=== PATIENT | male | born 1975 | race Caucasian/White ===

== ENCOUNTER 2017-03-19 19:50 | Inpatient (IN) | payer OTHER ==
[2017-03-19] MEDS ORDERED: AMIODARONE HCL 150 MG/3 ML VIAL IV ONE (20:00)
[2017-03-19] MEDS ORDERED: SODIUM BICARBONATE 50 MEQ/50 ML SYR IVP ONE ×2 (20:09→22:45)
[2017-03-19] MEDS ORDERED: EPINEPHrine 1 MG/10 ML SYR IVP ONE ×2 (20:09→22:39)
[2017-03-19] MEDS ORDERED: NS 1,000 ML IV ONE ×3 (20:09→22:23)
--- NOTE | 2017-03-19 20:09 | CPEKG ---
Heart Rate: 122 RR Interval: 492 P-R Interval: 148 QRSD Interval: 154 QT Interval: 348 QTC Interval: 496 P [place]: 77 QRS [place]: 58 T Wave [place]: 227 EKG Severity - ABNORMAL ECG - EKG Impression: SINUS TACHYCARDIA EKG Impression: IVCD, CONSIDER ATYPICAL LBBB Electronically Signed By: Hadley Solo 19-Mar-2017 22:16:23
[2017-03-19] MEDS ORDERED: PROPOFOL/EMULSION 1,000 MG/100 ML BOTTLE IV ONE (20:16)
[2017-03-19 20:17] LABS: ABSOLUTE NRBC COUNT 0.15 10^3/uL (0-0.01); ADD DIFF? YES; ADD MORPH? NO; ATYPICAL LYMPHOCYTE FLAG 10 (0-99); FRAGMENT RBC FLAG 0 (0-99); HEMOGLOBIN 16.7 g/dL (13.7-17.5); LEFT SHIFT FLG 20 (0-99); LIPEMIA HEMOLYSIS FLAG 80 (0-99); MEAN CELL HEMOGLOBIN 30.8 pg (27.9-34.1); MEAN CELL HEMOGLOBIN CONCENTR. 32.1 g/dL (32.4-36.7); MEAN CELL VOLUME 95.8 fL (81.5-99.8); MEAN PLATELET VOLUME 9.7 fL (8.7-11.7); NRBC-AUTO% 0.9 % (0.0-0.2); PLATELET CLUMPS FLAG 0 (0-99); PLATELET COUNT 109 10^3/uL (150-400); RED BLOOD CELL COUNT 5.43 10^6/uL (4.40-6.38); RED CELL DISTRIBUTION WIDTH 13.4 % (11.5-15.2)
[2017-03-19 20:21] LABS: ADD SCAN? NO
[2017-03-19 20:24] LABS: BASE EXCESS -17.1 mEq/L (-2.5-2.5); BICARBONATE 16 mEq/L (22-26); MEASURED OXYGEN SATURATION 85 % (92-95); PCO2 69 mmHg (34-38); PO2 79 mmHg (65-75); TCO2 19 mEq/L (23-27)
[2017-03-19 20:27] LABS: ANION GAP 16 mEq/L (8-16); CALCIUM 8.6 mg/dL (8.5-10.4); CARBON DIOXIDE 21 mEq/l (22-31); CHLORIDE 103 mEq/L (97-110); CREATININE 1.6 mg/dL (0.7-1.3); GLOMERULAR FILTRATION RATE 44; GLUCOSE 137 mg/dL (70-100); POTASSIUM 4.3 mEq/L (3.5-5.2); SODIUM 140 mEq/L (134-144)
[2017-03-19 20:27] LABS: O2 CONCENTRATIION 100 % (0-100); P/F RATIO 79 RATIO; PRESSURE SUPPORT 7
[2017-03-19 20:30] LABS: INR 1.29 (0.83-1.16); PROTIME(PATIENT) 16.1 SEC (12.0-15.0)
[2017-03-19] MEDS ORDERED: MIDAZOLAM 2 MG/2 ML VIAL IVP ONE (20:30)
[2017-03-19 20:31] LABS: APTT 41.6 SEC (23.0-38.0)
[2017-03-19 20:38] LABS: TROPONIN I 0.028 ng/mL (0-0.034)
[2017-03-19 20:40] LABS: ALBUMIN 4.1 g/dL (3.5-5.0); BILIRUBIN,TOTAL 1.1 mg/dL (0.1-1.4); BILIRUBIN-CONJUGATED 0.5 mg/dL (0.0-0.5); BILIRUBIN-UNCONJUGATED 0.6 mg/dL (0.0-1.1); TOTAL PROTEIN 7.6 g/dL (6.3-8.2)
[2017-03-19 20:41] LABS: CREATINE KINASE-MB FRACTION 4.63 ng/mL (0-3.19)
[2017-03-19] MEDS ORDERED: PROPOFOL/EMULSION 500 MG/50 ML BOTTLE IV ONE (20:42)
[2017-03-19] MEDS: PROPOFOL/EMULSION 50 ML IV ONE ×2 (20:49→21:29)
[2017-03-19 20:51] LABS: CK-MB INTERPRETATION NEGATIVE (NEGATIVE)
[2017-03-19] MEDS ORDERED: DOPamine/DEXTROSE/250 ML BAG IV ONE ×2 (20:57→22:39)
[2017-03-19 21:01] LABS: PLATELET ESTIMATE DECREASED (ADEQ)
[2017-03-19] MEDS ORDERED: AMIODARONE HCL 100 ML IV ONE (21:15)
[2017-03-19] MEDS ORDERED: AMIODARONE HCL 200 ML IV ONE ×2 (21:15→23:59)
[2017-03-19] MEDS ORDERED: PROPOFOL 200 MG/20 ML VIAL IVP ONE (21:40)
--- NOTE | 2017-03-19 21:43 | EDPHY ---
H & P Stated Complaint: at work, syncope, cardiac arrest Time Seen by Provider: 03/19/17 20:04 HPI/ROS: CHIEF COMPLAINT: Cardiac arrest HISTORY OF PRESENT ILLNESS: The patient is brought in emergently by paramedics after a cardiac arrest. The patient reportedly collapsed at work. CPR was initiated. The patient was noted to be in VFib. He reportedly was shocked twice into a PEA rhythm. The patient did receive epinephrine and CPR. The patient was only received bag-valve mask ventilation via EMS. The patient did vomit several times en route. The patient is unable to provide any history as he is obtunded. REVIEW OF SYSTEMS: A comprehensive 10 point review of systems is unobtainable secondary to cardiac arrest Source: EMS, Old records Exam Limitations: Clinical condition - Physical Exam Exam: General Appearance: Obtunded, unresponsive, pallor wrists Eyes: Pupils equal and round no pallor or injection ENT, Mouth: Bloody vomitus and mouth Respiratory: No spontaneous breath sounds Cardiac: No audible heart sounds Gastrointestinal: Multiple surgical incisions Neurological: GCS 3 Skin: Cool, pale, mottled Musculoskeletal: Neck is supple nontender Extremities: symmetrical, full range of motion Constitutional: Initial Vital Signs Heart Rate 115 H 03/19/17 20:00 Respiratory Rate 16 03/19/17 20:00 Blood Pressure 147/100 H 03/19/17 20:00 O2 Sat (%) 94 03/19/17 20:00 O2 Delivery Mode Ventilator O2 (L/minute) 15 Medical Decision Making - Diagnostics EKG Interpretation: EKG: Complete interpretation has been separately recorded in the [facility] archive. Summary impression: Left bundle branch block, rate 122, nonspecific ST T wave changes noted Imaging Results: Imaging Impressions Chest X-Ray 03/19/17 19:58 Impression: 1. Endotracheal tube in good position on the final study 2. Diffuse pulmonary opacities with cardiomegaly, possibly related to pulmonary edema, aspiration, or pneumonia. 3. Post surgical change in the right chest and lung with volume loss, consistent with partial lung resection. Chest/Thorax CTA 03/19/17 20:11 Impression: 1. No visible pulmonary embolus. 2. Diffuse multifocal consolidation with groundglass opacities and mild interlobular septal thickening, which could represent a combination of pulmonary edema, pneumonia, and/or aspiration. 3. Tiny left pneumothorax. 4. Sternal fracture and multiple bilateral rib fractures, including two two- site left fifth and sixth rib fractures. 5. Gastric distention. 6. Trace ascites. 7. Additional findings as above. Findings discussed with Dr. Hadley Solo on March 19, 2017 at 2041 hours. Procedures: Procedure: Intubation Indication for the procedure was respiratory arrest. The patient was preoxygenated with 100% oxygen by face mask. The patient was orally endotracheally intubated under direct visualization with a 8.0 ETT. Tracheal intubation was confirmed with misting on the tube; breath sounds were auscultated equally bilaterally; appropriate color change with [place] Tidal CO2 detector, capnography waveform is appropriate, oxygen saturation after procedure is 92%. Chest X-ray shows ETT in good position. The procedure was performed by myself. Procedure: Central line placement. Indication: HACA protocol, hypotension Full maximal sterile barrier technique was used including cap, gown, sterile gloves, large sheet, hand washing and chlorhexidine prep. The area was anesthetized with 1% lidocaine. A 7 [place]ian triple lumen was placed in the right femoral vein using standard Seldinger technique. There were no complications. Blood return low pressure, dark blood. Patient tolerated procedure well. CXR results: Appropriate line placement, and no pneumothorax. X-ray was interpreted by myself. Radiologist interpretation is pending. The procedure was performed by myself. ED Course/Re-evaluation: The patient arrived to the emergency department in PEA. The patient was promptly intubated by myself without complication 8 0 ET tube. The patient received an additional 1 mg of epinephrine. Following intubation and epinephrine, the patient did have return of spontaneous circulation. Initial oxygen saturation was in the 30s however improved into the 90s following intubation. The patient's EKG demonstrates left bundle branch block. Patient was treated with amiodarone, bicarb calcium prior to obtaining laboratory studies. The patient had no evidence of hyperkalemia upon further testing. I reviewed basic information from the [facility] health record system. I see the patient has a history of liver transplant, Pratt sarcoma, biventricular heart failure, left bundle branch block and hepatitis-C. The patient was stabilized. I consulted with Dr. Danilo Colvin from Cardiology. The patient was taken for a stat CT scan of the chest which demonstrates no evidence of obvious pulmonary embolism but does demonstrate a likely right basilar consolidation. The patient underwent an echocardiogram which demonstrates global hypokinesis and ejection fraction on par with the documented ejection fraction from his prior records [facility]. There is no regional wall motion abnormality according to Dr. Colvin. The patient did have a Thermaguard catheter placed by myself and the patient was started on HACA protocol. Patient was sedated with propofol. The patient will be admitted to the intensive care unit under the care of the hospitalist. Consultation was made with Dr. Black who will admit the patient. The patient was started on a dopamine drip for hypotension. The patient was also started on a propofol drip for sedation. Differential Diagnosis: Differential diagnosis considered includes primary cardiac arrhythmia, acute coronary syndrome, pulmonary embolism, pericardial tamponade, severe metabolic derangement, renal failure, hyperkalemia, spontaneous hemorrhage, hypovolemia Other Provider: Critical care time exclusive of procedures and exclusive of the PA's time was 75 minutes, performed by myself, Hadley Solo MD. Patient presented to the ED following cardiac arrest. The patient was resuscitated. The patient was evaluated for possible etiologies of PE a including hypothermia, pulmonary embolism, massive myocardial infarction and severe metabolic derangement. The patient required emergent consultation with Cardiology as well as the hospitalist service. I reviewed extensive records from the [facility]. - Data Points Laboratory Results: Laboratory Results 03/19/17 20:02 03/19/17 20:02 03/19/17 03/19/17 03/19/17 20:10 20:06 20:02 WBC RBC Hgb POC Hgb Hct POC Hct MCV MCH MCHC RDW Plt Count MPV Neut % (Auto) Lymph % (Auto) [place] % (Auto) Eos % (Auto) Baso % (Auto) Nucleat RBC Rel Count Absolute Neuts (auto) Absolute Lymphs (auto) Absolute Monos (auto) Absolute Eos (auto) Absolute Basos (auto) Absolute Nucleated RBC Immature Gran % Seg Neutrophils % Band Neutrophils % Lymphocytes % Monocytes % Eosinophils % Immature Gran # Absolute Seg Neuts Absolute Band Neuts Absolute Lymphocytes Absolute Monocytes Absolute Eosinophils Platelet Estimate Smear Review By PT INR APTT Puncture Site RIGHT RADIAL Patient Temperature 37.0 DEGREES DEGREES pCO2 69 mmHg H mmHg (34-38) pO2 79 mmHg H mmHg (65-75) Total CO2 19 mEq/L L mEq/L (23-27) ABG pH 7.01 L* (7.35-7.45) ABG PO2/FiO2 Ratio 79 RATIO RATIO ABG HCO3 16 mEq/L L mEq/L (22-26) ABG O2 Saturation 85 % L % (92-95) ABG Base Excess -17.1 mEq/L L mEq/L (-2.5-2.5) O2 Concentration % 100 % % (0-100) Set Respiration Rate 16 Tidal Volume 650 PEEP 5 Pressure Support 7 POC Sodium Sodium 140 mEq/L mEq/L (134-144) POC Potassium Potassium 4.3 mEq/L mEq/L (3.5-5.2) POC Chloride Chloride 103 mEq/L mEq/L (97-110) Carbon Dioxide 21 mEq/l L mEq/l (22-31) Anion Gap 16 mEq/L mEq/L (8-16) POC BUN BUN 30 mg/dL H mg/dL (7-23) Creatinine 1.6 mg/dL H mg/dL (0.7-1.3) POC Creatinine Estimated GFR 44 Glucose 137 mg/dL H mg/dL (70-100) POC Glucose Calcium 8.6 mg/dL mg/dL (8.5-10.4) Total Bilirubin 1.1 mg/dL mg/dL (0.1-1.4) Conjugated Bilirubin 0.5 mg/dL mg/dL (0.0-0.5) Unconjugated Bilirubin 0.6 mg/dL mg/dL (0.0-1.1) AST 65 IU/L H IU/L (17-59) ALT 31 IU/L IU/L (21-72) Alkaline Phosphatase 135 IU/L H IU/L (38-126) Creatine Kinase 255 IU/L H IU/L (0-224) CK-MB (CK-2) Fraction 4.63 ng/mL H ng/mL (0-3.19) CK-MB (CK-2) % 1.8 % % (0.0-4.0) Creatine Kinase Interp NEGATIVE (NEGATIVE) Troponin I 0.028 ng/mL ng/mL (0-0.034) Total Protein 7.6 g/dL g/dL (6.3-8.2) Albumin 4.1 g/dL g/dL (3.5-5.0) 03/19/17 03/19/17 03/19/17 20:02 20:02 19:53 WBC 17.41 10^3/uL H 10^3/uL (3.80-9.50) RBC 5.43 10^6/uL 10^6/uL (4.40-6.38) Hgb 16.7 g/dL g/dL (13.7-17.5) POC Hgb 18.4 gm/dL H gm/dL (13.7-17.5) Hct 52.0 % H % (40.0-51.0) POC Hct 54 % H % (40-51) MCV 95.8 fL fL (81.5-99.8) MCH 30.8 pg pg (27.9-34.1) MCHC 32.1 g/dL L g/dL (32.4-36.7) RDW 13.4 % % (11.5-15.2) Plt Count 109 10^3/uL L 10^3/uL (150-400) MPV 9.7 fL fL (8.7-11.7) Neut % (Auto) Not Reported Lymph % (Auto) Not Reported [place] % (Auto) Not Reported Eos % (Auto) Not Reported Baso % (Auto) Not Reported Nucleat RBC Rel Count 0.9 % H % (0.0-0.2) Absolute Neuts (auto) Not Reported Absolute Lymphs (auto) Not Reported Absolute Monos (auto) Not Reported Absolute Eos (auto) Not Reported Absolute Basos (auto) Not Reported Absolute Nucleated RBC 0.15 10^3/uL H 10^3/uL (0-0.01) Immature Gran % Not Reported Seg Neutrophils % 33 % % Band Neutrophils % 1 % % Lymphocytes % 54 % % Monocytes % 9 % % Eosinophils % 3 % % Immature Gran # Not Reported Absolute Seg Neuts 5.75 10^/uL 10^/uL (1.70-6.50) Absolute Band Neuts 0.17 10^3/uL 10^3/uL (0.00-0.70) Absolute Lymphocytes 9.40 10^3/uL H 10^3/uL (1.00-3.00) Absolute Monocytes 1.57 10^3/uL H 10^3/uL (0.30-0.80) Absolute Eosinophils 0.52 10^3/uL H 10^3/uL (0.03-0.40) Platelet Estimate DECREASED L (ADEQ) Smear Review By Pending PT 16.1 SEC H SEC (12.0-15.0) INR 1.29 H (0.83-1.16) APTT 41.6 SEC H SEC (23.0-38.0) Puncture Site Patient Temperature pCO2 pO2 Total CO2 ABG pH ABG PO2/FiO2 Ratio ABG HCO3 ABG O2 Saturation ABG Base Excess O2 Concentration % Set Respiration Rate Tidal Volume PEEP Pressure Support POC Sodium 142 mEq/L mEq/L (134-144) Sodium POC Potassium 4.0 mEq/L mEq/L (3.3-5.0) Potassium POC Chloride 103 mEq/L mEq/L (97-110) Chloride Carbon Dioxide Anion Gap POC BUN 38 mg/dL H mg/dL (7-23) BUN Creatinine POC Creatinine 1.5 mg/dL H mg/dL (0.7-1.3) Estimated GFR Glucose POC Glucose 150 mg/dL H mg/dL (70-100) Calcium Total Bilirubin Conjugated Bilirubin Unconjugated Bilirubin AST ALT Alkaline Phosphatase Creatine Kinase CK-MB (CK-2) Fraction CK-MB (CK-2) % Creatine Kinase Interp Troponin I Total Protein Albumin Medications Given: Discontinued Medications Amiodarone HCl (Amiodarone Hcl) 150 mg IV EDNOW ONE Stop: 03/19/17 20:01 Last Admin: 03/19/17 20:00 Dose: 150 mg Epinephrine HCl (Epinephrine) 1 mg IVP EDNOW ONE Stop: 03/19/17 20:10 Last Admin: 03/19/17 19:52 Dose: 1 mg Sodium Chloride (Ns) 1,000 mls @ 0 mls/hr IV ONCE ONE PRN Reason: Wide Open Stop: 03/19/17 20:10 Last Admin: 03/19/17 19:53 Dose: 1,000 mls Propofol (Diprivan 10 Mg/Ml (Premix)) 50 mls @ 0 mls/hr IV EDNOW ONE; As Directed PRN Reason: Protocol Stop: 03/19/17 20:43 Last Admin: 03/19/17 21:29 Dose: 50 mls Sodium Bicarbonate (Sodium Bicarbonate) 50 meq IVP EDNOW ONE Stop: 03/19/17 20:10 Last Admin: 03/19/17 19:54 Dose: 50 meq Point of Care Test Results: 03/19/17 19:53 POC Sodium 142 POC Potassium 4.0 POC Chloride 103 POC BUN 38 H POC Creatinine 1.5 H POC Glucose 150 H Departure - Departure Disposition: [facility] Inpatient Acute Clinical Impression: Cardiac arrest, Liver transplant recipient, Hepatitis C, Biventricular heart failure Condition: Critical
[2017-03-19] MEDS ORDERED: fentaNYL 100 MCG/2 ML INJ IVP ONE ×2 (21:53→22:13)
[2017-03-19] MEDS ORDERED: NOREPINEPHRINE/NS 4 MG/500 ML BAG IV ONE (22:06)
[2017-03-19] MEDS ORDERED: NOREPINEPHRINE/NS 500 ML IV SCH (22:30)
[2017-03-19] MEDS ORDERED: NOREPINEPHRINE BITARTRATE 4 MG in D5W 500 ML IV SCH (22:30)
[2017-03-19 22:39] LABS: BASE EXCESS -13.5 mEq/L (-2.5-2.5); BICARBONATE 18 mEq/L (22-26); MEASURED OXYGEN SATURATION 86 % (92-95); PCO2 62 mmHg (34-38); PO2 73 mmHg (65-75); TCO2 20 mEq/L (23-27)
[2017-03-19] MEDS ORDERED: AMIODARONE HCL 150 MG/3 ML VIAL ONE (22:39)
[2017-03-19] MEDS ORDERED: CALCIUM CHLORIDE 1 GM/10 ML INJ ONE (22:39)
[2017-03-19] MEDS ORDERED: SODIUM BICARBONATE 50 MEQ/50 ML SYR ONE (22:39)
[2017-03-19 22:40] LABS: O2 CONCENTRATIION 100 % (0-100); P/F RATIO 73 RATIO; PATIENT RATE 20; PRESSURE SUPPORT 10; SIMV YES
[2017-03-19] MEDS ORDERED: MIDAZOLAM 2 MG/2 ML VIAL ONE (22:47)
[2017-03-19] MEDS ORDERED: VECURONIUM BROMIDE 50 MG in D5W 50 ML IV SCH (23:09)
[2017-03-19] MEDS: fentaNYL/NACL 100 ML IV SCH (23:16)
[2017-03-19 23:30] LABS: COLOR YELLOW; LEUKOCYTE ESTERASE,URINE NEGATIVE (NEGATIVE); NITRITE,URINE NEGATIVE (NEGATIVE)
[2017-03-19 23:36] LABS: MUCUS TRACE /lpf (NONE-1+); RBC,URINE 25-50 /hpf (0-3)
[2017-03-19 23:49] LABS: % IMMATURE GRANULYOCYTES 0.8 % (0.0-1.1); ABSOLUTE IMMATURE GRANULOCYTES 0.05 10^3/uL (0.00-0.10); ABSOLUTE NRBC COUNT 0.02 10^3/uL (0-0.01); ADD DIFF? NO; ADD MORPH? NO; ADD SCAN? NO; ATYPICAL LYMPHOCYTE FLAG 20 (0-99); FRAGMENT RBC FLAG 0 (0-99); HEMATOCRIT 49.4 % (40.0-51.0); HEMOGLOBIN 16.2 g/dL (13.7-17.5); LEFT SHIFT FLG 20 (0-99); LIPEMIA HEMOLYSIS FLAG 80 (0-99); MEAN CELL HEMOGLOBIN CONCENTR. 32.8 g/dL (32.4-36.7); MEAN CELL VOLUME 94.6 fL (81.5-99.8); MEAN PLATELET VOLUME 9.6 fL (8.7-11.7); NRBC-AUTO% 0.3 % (0.0-0.2); PLATELET CLUMPS FLAG 20 (0-99); PLATELET COUNT 146 10^3/uL (150-400); RED BLOOD CELL COUNT 5.22 10^6/uL (4.40-6.38); RED CELL DISTRIBUTION WIDTH 13.5 % (11.5-15.2)
[2017-03-19 23:50] LABS: BASE EXCESS -9.8 mEq/L (-2.5-2.5); BICARBONATE 24 mEq/L (22-26); MEASURED OXYGEN SATURATION 47 % (92-95); TCO2 26 mEq/L (23-27)
[2017-03-19] MEDS: ERTAPENEM 1 GM in NS 100 ML IV SCH (23:51)
[2017-03-19 23:53] LABS: PCO2 84 mmHg (34-38); PO2 38 mmHg (65-75)
[2017-03-19] MEDS ORDERED: AMIODARONE HCL 540 MG in D5W 300 ML IV ONE (23:59)
[2017-03-20] MEDS ORDERED: MAGNESIUM SULF 2 GM/WATER 50 ML BAG IV ONE (00:03)
[2017-03-20 00:11] LABS: ALBUMIN 2.6 g/dL (3.5-5.0); ANION GAP 7 mEq/L (8-16); ASPARTATE AMINOTRANSFERASE 60 IU/L (17-59); BILIRUBIN,TOTAL 1.1 mg/dL (0.1-1.4); CALCIUM 6.7 mg/dL (8.5-10.4); CARBON DIOXIDE 24 mEq/l (22-31); CHLORIDE 109 mEq/L (97-110); CREATININE 1.5 mg/dL (0.7-1.3); GLOMERULAR FILTRATION RATE 52; GLUCOSE 139 mg/dL (70-100); MAGNESIUM 1.7 mg/dL (1.6-2.3); POTASSIUM 5.1 mEq/L (3.5-5.2); SODIUM 140 mEq/L (134-144)
[2017-03-20 00:14] LABS: BICARBONATE 17 mEq/L (22-26); IONIZED CALCIUM 1.04 MMOL/L (1.12-1.30); MEASURED OXYGEN SATURATION 88 % (92-95); PCO2 41 mmHg (34-38); PO2 58 mmHg (65-75); TCO2 19 mEq/L (23-27)
[2017-03-20 00:20] LABS: END TIDAL CO2 30; O2 CONCENTRATIION 100 % (0-100); P/F RATIO 58 RATIO; PRESSURE SUPPORT 10; SIMV YES
[2017-03-20 00:24] LABS: TROPONIN I 0.185 ng/mL (0-0.034)
[2017-03-20 00:58] LABS: CK-MB INTERPRETATION NEGATIVE (NEGATIVE)
--- NOTE | 2017-03-20 01:03 | GOP ---
[f rep st] OPERATIVE REPORT DATE OF OPERATION: 03/19/2017 SURGEON: Ramone Linn MD ANESTHESIA: Anesthesia. PREOPERATIVE DIAGNOSIS: Cardiac arrest. POSTOPERATIVE DIAGNOSIS: Same. PROCEDURE PERFORMED: Left radial artery arterial line. DESCRIPTION OF PROCEDURE: The left radial artery was cannulated with a 20- gauge Angiocath via palpation. The catheter easily slid onto its hub. There was good pulsatile blood noted upon placement with a normal arterial waveform on the cardiac cath tech. The IV was secured with a silk suture. No immediate complications occurred. /[id number]/MODL MTDD
[2017-03-20 01:23] LABS: PHENCYCLIDINE URINE BCH < 6 ng/ml (NEGATIVE); PHENCYCLIDINE URINE BCH NEGATIVE (NEGATIVE); TETRAHYDROCANNABINOL URINE < 5 ng/mL (NEGATIVE); TETRAHYDROCANNABINOL URINE NEGATIVE (NEGATIVE)
[2017-03-20 02:10] LABS: BASE EXCESS -9.5 mEq/L (-2.5-2.5); BICARBONATE 17 mEq/L (22-26); MEASURED OXYGEN SATURATION 86 % (92-95); PCO2 34 mmHg (34-38); PO2 47 mmHg (65-75); TCO2 19 mEq/L (23-27)
[2017-03-20 02:11] LABS: END TIDAL CO2 24; O2 CONCENTRATIION 100 % (0-100); P/F RATIO 47 RATIO; PATIENT RATE 24; PRESSURE SUPPORT 10; SIMV YES
[2017-03-20 02:25] LABS: ALBUMIN 2.5 g/dL (3.5-5.0); ASPARTATE AMINOTRANSFERASE 58 IU/L (17-59); BILIRUBIN,TOTAL 1.5 mg/dL (0.1-1.4); MAGNESIUM 2.5 mg/dL (1.6-2.3); POTASSIUM 4.1 mEq/L (3.5-5.2)
[2017-03-20] MEDS ORDERED: INSULIN REGULAR HUMAN 100 UNIT in NS 100 ML IV SCH (02:30)
[2017-03-20 02:38] LABS: CK-MB INTERPRETATION NEGATIVE (NEGATIVE); TROPONIN I 0.256 ng/mL (0-0.034)
[2017-03-20 03:12] LABS: BASE EXCESS -8.8 mEq/L (-2.5-2.5); BICARBONATE 18 mEq/L (22-26); MEASURED OXYGEN SATURATION 86 % (92-95); PCO2 34 mmHg (34-38); PO2 46 mmHg (65-75); TCO2 19 mEq/L (23-27)
[2017-03-20 03:13] LABS: END TIDAL CO2 27; O2 CONCENTRATIION 100 % (0-100); P/F RATIO 46 RATIO; SIMV YES
[2017-03-20 03:14] LABS: PATIENT RATE 22; PRESSURE SUPPORT 10
--- NOTE | 2017-03-20 03:19 | PDGENHP ---
History and Physical - Chief Complaint cardiac arrest - History of Present Illness Patient is a 41 year old male with history of liver transplant on chronic immunosuppression, chronic HCV, biventricular CHF (EF <25% since 2005) who has an out of hospital cardiac arrest. History obtained from patient's coworkers, family and ED staff, as patient is obtunded. 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 This event was witnessed by his coworkers, who said that he had a couple of agonal breaths before he then stopped breathing completely. They immediately called EMS and initiated CPR. On EMS arrival, patient's initial rhythm was deemed to be Vfib, he was given 2 shocks while on transport to the ED. During transport patient was being ventilated with bag/mask/valve and had several episodes of vomiting with obvious aspiration. On arrival to the ED, ACLS was initiated. Patient was intubated, initial rhythm was deemed to be PEA, he was given epi x1 and also Amiodarone 150 mg IVP, with ROSC achieved. Total downtime is not clear, but likely > 20 minutes. Initial CXR revealed diffuse bilateral patchy infiltrates. Labs showed leukocytosis, acidosis, elevated BUN/Cr. CT angio chest was then obtained to r/o PE, it was negative for PE, did reveal dense bilateral infiltrates with surrounding ground glass opacities, bilateral rib fractures, small L pneumothorax. Emergent TTE was performed and revealed global hypokinesis without obvious focal wall motion abnormalities. Cooling catheter was placed and HACA protocol was initiated. He was then admitted to the ICU for further management. History Information - Allergies/Home Medication List Allergies/Adverse Reactions: No Known Allergies Allergy (Unverified 03/20/17 00:36) I have personally reviewed and updated: family history, medical history, social history, surgical history - Past Medical History Additional medical history: liver transplant 2004 on chronic immunosuppression. h/o HCV s/p jasvir medina. biventricular cardiomyopathy, EF <20%, mod- severe TR. baseline LBBB. 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 Pratt sarcoma bx/resection 1986 - Family History Positive for: non-pertinent - Social History Smoking Status: Never smoked Alcohol Use: None Drug Use: None Additional social history: Patient lives with his , works, is independent. Review of Systems Review of Systems: unable to obtain Physical Exam Temp Pulse Resp BP Pulse Ox 33.1 C L 60 24 H 100/74 97 03/20/17 03:00 03/20/17 03:00 03/20/17 03:00 03/20/17 03:00 03/20/17 03:00 FIO2 (%) 100 Constitutional: other (obtunded, intubated) Eyes: PERRL, anicteric sclera Ears, Nose, Mouth, Throat: moist mucous membranes, no oral mucosal ulcers Cardiovascular: no murmur, rub, or gallop, irregularly irregular, pulses symmetric bilaterally, edema (trace lower ext edema b/l), No JVD Peripheral Pulses: 2+: dorsalis-pedis (R), dorsalis-pedis (L) Respiratory: rhonchi (diffusely bilaterally; intubated, mechanically ventilated) Gastrointestinal: soft, non-tender abdomen, other (large midline incisional scars), No no palpable masses, No distension Genitourinary: no bladder fullness, no bladder tenderness Skin: mottled, no rashes or abrasions, No abrasion Musculoskeletal: other (shivering; myoclonic jerking) Neurologic: other (obtunded; PERRL; moves all extremities without purpose) Lab Data & Imaging Review 03/19/17 23:25 03/20/17 02:00 WBC 6.55 10^3/uL (3.80-9.50) D 03/19/17 23:25 RBC 5.22 10^6/uL (4.40-6.38) 03/19/17 23:25 Hgb 16.2 g/dL (13.7-17.5) 03/19/17 23:25 POC Hgb 18.4 gm/dL (13.7-17.5) H 03/19/17 19:53 Hct 49.4 % (40.0-51.0) 03/19/17 23:25 POC Hct 54 % (40-51) H 03/19/17 19:53 MCV 94.6 fL (81.5-99.8) 03/19/17 23:25 MCH 31.0 pg (27.9-34.1) 03/19/17 23:25 MCHC 32.8 g/dL (32.4-36.7) 03/19/17 23: RDW 13.5 % (11.5-15.2) 03/19/17 23: Plt Count 146 10^3/uL (150-400) L 03/19/17 23:25 MPV 9.6 fL (8.7-11.7) 03/19/17 23:25 Neut % (Auto) 66.7 % (39.3-74.2) 03/19/17 23: Lymph % (Auto) 28.5 % (15.0-45.0) 03/19/17 23: Kleberg % (Auto) 3.2 % (4.5-13.0) L 03/19/17 23: Eos % (Auto) 0.3 % (0.6-7.6) L 03/19/17: Baso % (Auto) 0.5 % (0.3-1.7) 03/19/17: Nucleat RBC Rel Count 0.3 % (0.0-0.2) H 03/19/17 23: Absolute Neuts (auto) 4.37 10^3/uL (1.70-6.50) 03/19/17 23: Absolute Lymphs (auto) 1.87 10^3/uL (1.00-3.00) 03/19/17 23: Absolute Monos (auto) 0.21 10^3/uL (0.30-0.80) L 03/19/17 23:25 Absolute Eos (auto) 0.02 10^3/uL (0.03-0.40) L 03/19/17 23:25 Absolute Basos (auto) 0.03 10^3/uL (0.02-0.10) 03/19/17: Absolute Nucleated RBC 0.02 10^3/uL (0-0.01) H 03/19/17 23: Immature Gran % 0.8 % (0.0-1.1) 03/19/17 23:25 Seg Neutrophils % 33 % 03/19/17 20:02 Band Neutrophils % 1 % 03/19/17 20:02 Lymphocytes % 54 % 03/19/17 20:02 Monocytes % 9 % 03/19/17 20:02 Eosinophils % 3 % 03/19/17 20:02 Immature Gran # 0.05 10^3/uL (0.00-0.10) 03/19/17 23:25 Absolute Seg Neuts 5.75 10^/uL (1.70-6.50) 03/19/17 20:02 Absolute Band Neuts 0.17 10^3/uL (0.00-0.70) 03/19/17 20:02 Absolute Lymphocytes 9.40 10^3/uL (1.00-3.00) H 03/19/17 20:02 Absolute Monocytes 1.57 10^3/uL (0.30-0.80) H 03/19/17 20:02 Absolute Eosinophils 0.52 10^3/uL (0.03-0.40) H 03/19/17 20:02 Platelet Estimate DECREASED (ADEQ) L 03/19/17 20:02 PT 16.1 SEC (12.0-15.0) H 03/19/17 20:02 INR 1.29 (0.83-1.16) H 03/19/17 20:02 APTT 41.6 SEC (23.0-38.0) H 03/19/17 20:02 Puncture Site ARTERIAL LINE 03/20/17 03:05 Patient Temperature 33.1 DEGREES 03/20/17 03:05 pCO2 34 mmHg (34-38) 03/20/17 03:05 pO2 46 mmHg (65-75) L 03/20/17 03:05 Total CO2 19 mEq/L (23-27) L 03/20/17 03:05 ABG pH 7.31 (7.35-7.45) L 03/20/17 03:05 ABG PO2/FiO2 Ratio 46 RATIO 03/20/17 03:05 ABG HCO3 18 mEq/L (22-26) L 03/20/17 03:05 ABG O2 Saturation 86 % (92-95) L 03/20/17 03:05 ABG Base Excess -8.8 mEq/L (-2.5-2.5) L 03/20/17 03:05 ABG Lactic Acid 1.7 mmol/L (0.5-1.6) H 03/20/17 00:05 VBG Lactic Acid 1.6 mmol/L (0.7-2.1) 03/19/17 23:30 O2 Concentration % 100 % (0-100) 03/20/17 03:05 Actual Respiration Rate 22 03/20/17 03:05 Set Respiration Rate 22 03/20/17 03:05 SIMV YES 03/20/17 03:05 Tidal Volume 650 03/20/17 03:05 End Tidal CO2 27 03/20/17 03:05 PEEP 12 03/20/17 03:05 Pressure Support 10 03/20/17 03:05 POC Sodium 142 mEq/L (134-144) 03/19/17 19:53 Sodium 140 mEq/L (134-144) 03/19/17 23:25 POC Potassium 4.0 mEq/L (3.3-5.0) 03/19/17 19:53 Potassium 4.1 mEq/L (3.5-5.2) 03/20/17 02:00 POC Chloride 103 mEq/L (97-110) 03/19/17 19:53 Chloride 109 mEq/L (97-110) 03/19/17 23:25 Carbon Dioxide 24 mEq/l (22-31) 03/19/17 23:25 Anion Gap 7 mEq/L (8-16) L 03/19/17 23:25 POC BUN 38 mg/dL (7-23) H 03/19/17 19:53 BUN 36 mg/dL (7-23) H 03/19/17 23:25 Creatinine 1.5 mg/dL (0.7-1.3) H 03/19/17 23:25 POC Creatinine 1.5 mg/dL (0.7-1.3) H 03/19/17 19:53 Estimated GFR 52 03/19/17 23:25 Glucose 139 mg/dL (70-100) H 03/19/17 23:25 POC Glucose 150 mg/dL (70-100) H 03/19/17 19:53 Calcium 6.7 mg/dL (8.5-10.4) L D 03/19/17 23:25 Ionized Calcium 1.04 MMOL/L (1.12-1.30) L 03/20/17 00:05 Phosphorus 4.4 mg/dL (2.5-4.5) D 03/20/17 02:00 Magnesium 2.5 mg/dL (1.6-2.3) H 03/20/17 02:00 Total Bilirubin 1.5 mg/dL (0.1-1.4) H 03/20/17 02:00 Conjugated Bilirubin 0.5 mg/dL (0.0-0.5) 03/19/17 20:10 Unconjugated Bilirubin 0.6 mg/dL (0.0-1.1) 03/19/17 20:10 AST 58 IU/L (17-59) 03/20/17 02:00 ALT 31 IU/L (21-72) 03/19/17 20:10 Alkaline Phosphatase 135 IU/L (38-126) H 03/19/17 20:10 Creatine Kinase 447 IU/L (0-224) H 03/20/17 02:00 CK-MB (CK-2) Fraction 11.10 ng/mL (0-3.19) H 03/20/17 02:00 CK-MB (CK-2) % 2.5 % (0.0-4.0) 03/20/17 02:00 Creatine Kinase Interp NEGATIVE (NEGATIVE) 03/20/17 02:00 Troponin I 0.256 ng/mL (0-0.034) H 03/20/17 02:00 Total Protein 7.6 g/dL (6.3-8.2) 03/19/17 20:10 Albumin 2.5 g/dL (3.5-5.0) L 03/20/17 02:00 Urine Color YELLOW 03/19/17 20:40 Urine Appearance HAZY 03/19/17 20:40 Urine pH 5.0 (5.0-7.5) 03/19/17 20:40 Ur Specific Mode 1.024 (1.002-1.030) 03/19/17 20:40 Urine Protein 2+ (NEGATIVE) H 03/19/17 20:40 Urine Ketones NEGATIVE (NEGATIVE) 03/19/17 20:40 Urine Blood 1+ (NEGATIVE) H 03/19/17 20:40 Urine Nitrate NEGATIVE (NEGATIVE) 03/19/17 20:40 Urine Bilirubin NEGATIVE (NEGATIVE) 03/19/17 20:40 Urine Urobilinogen NEGATIVE EU (0.2-1.0) 03/19/17 20:40 Ur Leukocyte Esterase NEGATIVE (NEGATIVE) 03/19/17 20:40 Urine RBC 25-50 /hpf (0-3) H 03/19/17 20:40 Urine WBC 1-3 /hpf (0-3) 03/19/17 20:40 Ur Epithelial Cells TRACE /lpf (NONE-1+) 03/19/17 20:40 Urine Mucus TRACE /lpf (NONE-1+) 03/19/17 20:40 Urine Glucose NEGATIVE (NEGATIVE) 03/19/17 20:40 Urine Opiates Screen NEGATIVE ng/mL (NEGATIVE) 03/19/17 20:40 Urine Barbiturates NEGATIVE ng/mL (NEGATIVE) 03/19/17 20:40 Ur Phencyclidine Scrn NEGATIVE ng/mL (NEGATIVE) 03/19/17 20:40 Ur Amphetamines Screen NEGATIVE ng/mL (NEGATIVE) 03/19/17 20:40 U Benzodiazepines Scrn NEGATIVE ng/mL (NEGATIVE) 03/19/17 20:40 Urine Cocaine Screen NEGATIVE ng/mL (NEGATIVE) 03/19/17 20:40 U Marijuana (THC) Screen NEGATIVE ng/mL (NEGATIVE) 03/19/17 20:40 Visualized and Interpreted Chest x-ray results: Yes Chest X-Ray results: other (diffuse b/l infiltrates; ETT in place) Visualized and Interpreted imaging results: Yes Interpretation: CT angio chest: no PE; dense b/l consolidations; L pneumothorax. CT head: no obvious hemorrhage or edema Visualized and Interpreted EKG results: Yes EKG Interpretation: Positive for: left bundle branch block Assessment & Plan Assessment: Patient is a 41-year-old male with a history of liver transplantation, on chronic immunosuppression, hepatitis-C, biventricular heart failure, known EF to be <25, who was brought to the ED after a witnessed doe-bc-enbcncog vfib cardiac arrest. Etiology of arrest is not obvious at this time, but highly suspicious for cardiogenic/arrhythmia-induced. Plan: # Vfib Cardiac arrest Given patient's known cardiomyopathy, initial Vfib rhythm, and coworkers' description of the event, suspect an arrhythmia as the inciting event. Since ROSC, EKG reveals his known LBBB; CT angio has ruled out PE and shows diffuse infiltrates, which are presumed to be aspirated material, and initial troponin was negative. - cont HACA protocol - trend troponins - mechanical ventilation # aspiration, acute hypoxic/hypercarbic respiratory failure Patient apparently had not been complaining of respiratory discomfort prior to arresting. Post-arrest during BMV he has large witnessed aspiration events. CXR and CT chest reveal diffuse bilateral infiltrates/consolidation. Hypercapnia has improved with mechanical ventilation, however, patient is difficult to oxygenate. Custom Tailor has been consulted, adjusting vent as needed. Will continue to follow ABGs, daily CXR and mechanical ventilation. He is also being covered with ertapenem for aspiration pneumonia # biventricular cardiomyopathy, shock Per OSH notes, patient has had global cardiomyopathy with EF known to be < 20% since 2005. It is not clear why he does not have an AICD in place, will need to obtain further outpatient records, and consider AICD placement during this hospitalization if patient has meaningful recovery. Cardiology has been consulted and do not suspect an acute ischemic event as cause of arrest, although it is a possibility. At present, patient is in shock requiring pressor support, etiology of which may be cardiogenic, +/- septic. Given initial rhythm of Vfib, he was bolused with amiodarone and initiated on an amiodarone drip. Will continue pressor support, amiodarone, continue to trend troponins to r/o acute ischemic event and will f/u any further cardiology recommendations. # h/o liver transplant, chronic HCV s/p jasvir Patient is immunosuppressed at baseline, but apparently has not had any significant complications from transplant. Will monitor LFTs to assess for development of shock liver, check prograf level. # acute renal failure BUN/CR elevated on presentation, unknown if patient has baseline renal dysfunction. Will continue to monitor BMP, monitor I/Os. # dispo: admit to inpatient service for > 2mn stay; # gen: NPO DVT ppx: HSQ if no evidence of bleeding FUll code total critical care time spent > 60 min.
[2017-03-20] MEDS ORDERED: MAGNESIUM SULF 2 GM/WATER 50 ML IV ONE (03:41)
[2017-03-20 03:56] LABS: BASE EXCESS -10.1 mEq/L (-2.5-2.5); BICARBONATE 18 mEq/L (22-26); MEASURED OXYGEN SATURATION 86 % (92-95); PCO2 41 mmHg (34-38); PO2 50 mmHg (65-75); TCO2 20 mEq/L (23-27)
[2017-03-20 04:00] LABS: END TIDAL CO2 31; O2 CONCENTRATIION 100 % (0-100); P/F RATIO 50 RATIO; SIMV YES
[2017-03-20 04:01] LABS: PATIENT RATE 22; PRESSURE SUPPORT 10
[2017-03-20] MEDS: PETROLAT,WHT/MIN OIL/SOD CHL 3.5 GM OPHT.OINT EACHEYE PRN (05:12)
[2017-03-20] MEDS: SODIUM BICARBONATE 150 MEQ in D5W 1,000 ML IV SCH ×3 (05:12→21:48)
[2017-03-20] MEDS ORDERED: AMIODARONE HCL 540 MG in D5W 300 ML IV ONE ×2 (06:00→22:10)
--- NOTE | 2017-03-20 06:02 | CPEKG ---
Heart Rate: 66 RR Interval: 909 P-R Interval: 180 QRSD Interval: 164 QT Interval: 532 QTC Interval: 558 P [place]: 82 QRS [place]: 54 T Wave [place]: 224 EKG Severity - ABNORMAL ECG - EKG Impression: SINUS RHYTHM EKG Impression: IVCD, CONSIDER ATYPICAL LBBB Electronically Signed By: Arnel Negrete 20-Mar-2017 08:57:57
[2017-03-20 06:14] LABS: BASE EXCESS -10.1 mEq/L (-2.5-2.5); BICARBONATE 20 mEq/L (22-26); MEASURED OXYGEN SATURATION 86 % (92-95); PCO2 50 mmHg (34-38); PO2 52 mmHg (65-75); TCO2 22 mEq/L (23-27)
[2017-03-20 06:15] LABS: ASSIST CONTROL YES; END TIDAL CO2 39; I-TIME 0.8 SECS; O2 CONCENTRATIION 100 % (0-100); P/F RATIO 52 RATIO; PATIENT RATE 28; PIP 20
[2017-03-20] MEDS ORDERED: PROPOFOL/EMULSION 1,000 MG/100 ML BOTTLE IV ONE (06:23)
[2017-03-20] MEDS ORDERED: PROTOCOL MAGNESIUM 1 DOSE IV PRN (07:45)
[2017-03-20] MEDS ORDERED: PROTOCOL POTASSIUM 1 DOSE MISC PRN (07:45)
[2017-03-20] MEDS ORDERED: PROTOCOL CALCIUM 1 DOSE IV PRN (07:49)
[2017-03-20] MEDS ORDERED: PROTOCOL K PHOSPHATE 1 DOSE IV PRN (07:49)
[2017-03-20 08:29] LABS: % IMMATURE GRANULYOCYTES 0.5 % (0.0-1.1); ABSOLUTE IMMATURE GRANULOCYTES 0.02 10^3/uL (0.00-0.10); ABSOLUTE NRBC COUNT 0.02 10^3/uL (0-0.01); ADD DIFF? NO; ADD MORPH? NO; ADD SCAN? YES; ATYPICAL LYMPHOCYTE FLAG 0 (0-99); FRAGMENT RBC FLAG 0 (0-99); HEMATOCRIT 50.6 % (40.0-51.0); HEMOGLOBIN 16.8 g/dL (13.7-17.5); LEFT SHIFT FLG 60 (0-99); LIPEMIA HEMOLYSIS FLAG 80 (0-99); MEAN CELL HEMOGLOBIN 30.8 pg (27.9-34.1); MEAN CELL HEMOGLOBIN CONCENTR. 33.2 g/dL (32.4-36.7); MEAN CELL VOLUME 92.7 fL (81.5-99.8); MEAN PLATELET VOLUME 9.9 fL (8.7-11.7); NRBC-AUTO% 0.5 % (0.0-0.2); PLATELET CLUMPS FLAG 10 (0-99); PLATELET COUNT 122 10^3/uL (150-400); RED BLOOD CELL COUNT 5.46 10^6/uL (4.40-6.38); RED CELL DISTRIBUTION WIDTH 13.9 % (11.5-15.2)
[2017-03-20] MEDS: CHLORHEXIDINE GLUCONATE 15 ML UDL PO SCH ×2 (08:41→21:47)
[2017-03-20] MEDS: POTASSIUM Cl (KCl) 50 ML IV SCH ×5 (08:41→16:06)
[2017-03-20 08:43] LABS: ALANINE AMINOTRANSFERASE 39 IU/L (21-72); ALBUMIN 2.3 g/dL (3.5-5.0); ALKALINE PHOSPHATASE 75 IU/L (38-126); ANION GAP 9 mEq/L (8-16); ASPARTATE AMINOTRANSFERASE 57 IU/L (17-59); BILIRUBIN,TOTAL 2.2 mg/dL (0.1-1.4); CALCIUM 6.8 mg/dL (8.5-10.4); CARBON DIOXIDE 21 mEq/l (22-31); CHLORIDE 109 mEq/L (97-110); CREATININE 1.4 mg/dL (0.7-1.3); GLOMERULAR FILTRATION RATE 56; GLUCOSE 153 mg/dL (70-100); POTASSIUM 2.8 mEq/L (3.5-5.2); SODIUM 139 mEq/L (134-144)
--- NOTE | 2017-03-20 09:04 | GCON ---
[f rep st] CONSULTATION SERVICE STATION HELPER CONSULTATION REASON FOR ADMISSION: Status post arrest. HISTORY OF PRESENT ILLNESS: The patient is an unfortunate 41-year-old white male with a past medica l history of a liver transplant for which he is on chronic immunosuppression. He has congestive hea rt failure with an ejection fraction of less than 25% and chronic hepatitis C. He had ofn-as-ofahxh al cardiac arrest. 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 This was witnessed. He had several agonal breaths and then stopped breathing complete ly. CPR was not begun until EMS arrived. During transportation, he was given 2 attempts at cardiov ersion. He was also being ventilated with a bag mask valve with episodes of vomiting and aspiration . He was subsequently resuscitated in the emergency room and was subsequently transported to the in tensive care unit on HACA protocol. Currently, patient is sedated and cool on mechanical ventilatio n. All history is gleaned from the medical records. PAST MEDICAL HISTORY: Again, significant for a liver transplant in 2004, chronic HCV, and cardiomyo shamika. ALLERGIES: Nausea medication. SOCIAL HISTORY: No history of tobacco use. No history of alcohol use. He is , employed, an d has excellent family support. MEDICATIONS: Currently unknown. PHYSICAL EXAM: VITAL SIGNS: Blood pressure is 90/62, pulse 65, respirations 28, temperature 33.1, oxygen saturation fluctuates. He is on mechanical ventilation. He has a poor waveform on his oxyge n saturations. GENERAL: He is a thin 41-year-old white male who is sedated, paralyzed, and on [facility] ventilation. HEENT: Eyes: [place]. EOMI. Throat: Endotracheal tube is in good position. N SOMMER: Supple. No cervical adenopathy. HEART: Regular rate and rhythm with a 2/6 systolic murmur i n the left sternal border without radiation. LUNGS: Diminished breath sounds. Bibasilar rhonchi. ABDOMEN: Soft, nontender. Bowel sounds are present in all 4 quadrants. EXTREMITIES: No clubbing , cyanosis, or edema. LABORATORY DATA: White count 6.5, hemoglobin of 16, hematocrit 49, platelet count is 146. INR is 1 .29. Current arterial blood gas: pH 7.20, pCO2 of 50, PO2 52, bicarb 22, oxygen saturation is 86%. This is on pressure controlled ventilation, driving pressure of 35, 100% ,and 15 of PEEP. Sodium 142, potassium 4.0, chloride 103, CO2 24, BUN 36, creatinine 1.5, and glucose is 139. CKs are eleva tootie x2. Troponins are positive x2. Urinalysis is negative. Urine drug screen is negative. CT angiogram of the chest shows no evidence of pulmonary embolism. He has dense infiltrates and con solidation in both lungs. There is a sternal fracture with multiple rib fractures. He has a tiny l eft pneumothorax. Chest x-ray interpreted by me from 3:37 a.m. shows endotracheal tube in good position, likely elevat ed right hemidiaphragm, evidence of rib fractures, and multifocal infiltrates. CT scan of the head shows no intracranial pathology. Transesophageal echocardiogram performed at bedside is reported to show global hypokinesis. IMPRESSION: 1. Status post kit-ir-uxfdpqli cardiac arrest. 2. Acute respiratory failure secondary to aspiration and cardiomyopathy. 3. Biventricular cardiomyopathy with ejection fraction less than 25%. Echo currently showing globa l hypokinesis. 4. History of liver transplant. 5. Chronic immunosuppression. 6. Chronic hepatitis C. 7. Metabolic and respiratory acidosis. 8. Acute renal failure. 9. Mild coagulopathy. 10. Aspiration pneumonitis, appears to be extensive. RECOMMENDATIONS: 1. Continue mechanical ventilation for now. 2. We will perform fiberoptic bronchoscopy at soonest. 3. We will cover with broad-spectrum antibiotics. Agree with current ertapenem. 4. Agree with sedation and paralytics. 5. HACA protocol. 6. We will increase the rate of bicarb. Prognosis is guarded at this time. /[id number]/MODL
[2017-03-20] MEDS: VASOPRESSIN/DEXTROSE 250 ML IV SCH ×2 (09:06→20:15)
[2017-03-20] MEDS: PROPOFOL/EMULSION 100 ML IV SCH (09:08)
--- NOTE | 2017-03-20 09:13 | ECHO ---
[id number] + + [address] : : [place] [address] : : [phone] + Adult Echocardiographic Report + + :Name: CHAU STROUD 1858Study Date: 03/19/2017 08:40 PM : : Hospital Admission Number: [id number] Sam tilester: ED 2: :: 1975 Gender: Male : :Age: 41 yrs Race: PTNP : :Reason For Study: Cardiac Arrest : + + MMode/2D Measurements \T\ Calculations IVSd: 1.3 cm LVIDd: 4.4 cm FS: 2.7 % LVPWd: 1.00 cm LVIDs: 4.3 cm EDV(Teich): 90.1 ml ESV(Teich): 84.4 ml EF(Teich): 6.2 % Normal Measurement Values: + + :LVIDd (3.5-5.7cm) IVSd (0.6-1.1cm) LVPWd (0.6-1.1cm) Aortic Root (2.0-3.7cm)Left Atrium (1.5-4.0cm): :LV Vol(d) (76-115ml) LV Vol(s) (29-48ml) Ejec Fraction (50-65%)PV Beck (0.6- 1.2m/s) TV Beck (0.4-1.0m/s) : :MV E Beck (0.8-1.0m/s)MV A Beck (0.3-1.0m/s)LVOT Beck (0.7-1.2m/s) Asc Ao Beck ( 0.9-1.8m/s) : + + Left Ventricle Ejection Fraction = 20-25%%. Left ventricular systolic function is severely reduced. Akinesis of the apex, Apical septum, apical anterior, Inferior, Inferoseptum. Pericardium/Pleural There is no pericardial effusion. Conclusion Ejection Fraction = 20-25% Left ventricular systolic function is severely reduced. No pericardial effusion Final Reading Physician: Negra Buchanan signed on 03/20/2017 09:11 AM Ordering Physician: Hadley Solo Performed By: Georgiana Raymundo
[2017-03-20 09:32] LABS: BILIRUBIN-CONJUGATED 1.7 mg/dL (0.0-0.5); BILIRUBIN-UNCONJUGATED 0.5 mg/dL (0.0-1.1)
[2017-03-20 09:38] LABS: SCAN NEGATIVE
[2017-03-20] MEDS ORDERED: D10W 250 ML PRN HYPOGLYCEMIA IV (10:00)
[2017-03-20] MEDS ORDERED: LIDOCAINE 2% JELLY 5 ML TUBE TP ONE (10:42)
[2017-03-20] MEDS ORDERED: LIDOCAINE 1% 300 MG/30 ML SDV MISC ONE (10:42)
[2017-03-20 10:51] LABS: ANION GAP 9 mEq/L (8-16); CALCIUM 6.8 mg/dL (8.5-10.4); CARBON DIOXIDE 20 mEq/l (22-31); CHLORIDE 109 mEq/L (97-110); CREATININE 1.3 mg/dL (0.7-1.3); GLOMERULAR FILTRATION RATE > 60; GLUCOSE 141 mg/dL (70-100); MAGNESIUM 2.2 mg/dL (1.6-2.3); POTASSIUM 3.5 mEq/L (3.5-5.2); SODIUM 138 mEq/L (134-144)
[2017-03-20 11:01] LABS: TROPONIN I 0.158 ng/mL (0-0.034)
[2017-03-20 11:05] LABS: INR 1.35 (0.83-1.16); PROTIME(PATIENT) 16.7 SEC (12.0-15.0)
[2017-03-20 11:06] LABS: APTT 31.4 SEC (23.0-38.0)
[2017-03-20] MEDS: ERTAPENEM 1 GM in NS 100 ML IV SCH (11:08)
--- NOTE | 2017-03-20 11:23 | GPN ---
[f rep st] PROCEDURE NOTE PROCEDURE: Fiberoptic bronchoscopy. INDICATION: Aspiration. ANESTHESIA: Patient is sedated and on mechanical ventilation. Procedure was performed in the intensive care unit with continuous pulse ox, EKG, and blood pressure monitoring. Please note, patient is on mechanical ventilation which is by definition a closed syst em. He poses no risk for airborne pathogens; however, N95 masks were used throughout the procedure. DESCRIPTION OF PROCEDURE: Bronchoscope was entered through a #8 endotracheal tube. Distal trachea and jackelyn were visualized and showed minimal amounts of bloody secretions that were therapeutically aspirated. Bronchoscope was entered in the left lung. Left upper lobe, lingula, left lower lobe, including subsegments were visualized and showed no endobronchial lesions, normal-appearing mucosa, and minimal amounts of bloody secretions that were therapeutically aspirated. Bronchoscope was ente red in the right lung. Right upper lobe, right middle lobe, right lower lobe, including sub-segment s were subsequently visualized and again showed no endobronchial lesions, normal-appearing mucosa, a nd minimal amounts of bloody secretions. Bronchoalveolar lavage was taken from the right middle lob e. This was sent for C and S, AFB, and fungal cultures. The patient tolerated the procedure well. There were no apparent complications. /[id number]/MODL
[2017-03-20] MEDS ORDERED: AMIODARONE HCL 150 MG/100 ML BAG (1.5 MG/ML) IV ONE (11:27)
[2017-03-20] MEDS ORDERED: AMIODARONE HCL 100 ML IV ONE (11:30)
[2017-03-20] MEDS: PANTOPRAZOLE SODIUM 40 MG in NS 100 ML IV SCH ×2 (11:49→21:47)
[2017-03-20] MEDS: PHENYLEPHRINE HCL 50 MG in NS 250 ML IV SCH ×2 (12:06→21:53)
[2017-03-20 12:12] LABS: ASSIST CONTROL YES; BASE EXCESS -7.7 mEq/L (-2.5-2.5); BICARBONATE 20 mEq/L (22-26); END TIDAL CO2 27; MEASURED OXYGEN SATURATION 87 % (92-95); PCO2 39 mmHg (34-38); PO2 46 mmHg (65-75); TCO2 21 mEq/L (23-27)
[2017-03-20 12:13] LABS: O2 CONCENTRATIION 100 % (0-100); P/F RATIO 46 RATIO; TOTAL RATE 28
--- NOTE | 2017-03-20 12:17 | PDCONSULT ---
Helicopter Repairer Note: HOSPITAL NEUROLOGY CONSULT REQUESTING: Tayla Nickerson DO REASON: coma after cardiac arrest, HACA protocol HPI: This is a 41 year old man with a history of chronic immunosuppression s/p liver transplant with hepatitis C. He also has cardiomyopathy with a known baseline EF of 25%. Patient had a witnessed out of hospital cardiopulmonary arrest with ROSC yesterday. He was admitted to ICU with initiation of HACA protocol last night with target temperature of 33C. He is intubated, sedated and paralyzed. ROS: As per the HPI, otherwise a complete 12 point ROS was performed and is negative ALLERGIES AND MEDS: As recorded in the EMR - reviewed and reconciled PFSH: As per the intake H&P by Dr. Nickerson from yesterday EXAM: VS reviewed in EMR GEN: WDWN intubated, sedated MS: eyes closed, sedated, intubated, no response to any form of stimulation CN: pupils 4mm round with trace reactivity, brisker OS. No blink to threat. Primary gaze centered. No VORs. No corneals. Face symmetric about ETT. No cough to deep suction. No gag to ETT manipulation. MOTOR: Normal bulk. Flaccid throughout. No spontaneous or adventitial movements REFLEX: plantars mute, no clonus, absent DTRS COORD/GAIT: unable to assess DATA REVIEW: Labs reviewed in EMR PERSONALLY INTERPRETED RESULTS AND DATA: CT head wo - no acute pathology - no evidence of gyriform swelling/edema IMPRESSION AND RECOMMENDATIONS: // CARDIOPULMONARY ARREST WITH ROSC // COMA // CHRONIC IMMUNOSUPPRESSION // HX LIVER TRANSPLANT // CARDIOMYOPATHY Patient currently sedated and paralyzed on HACA protocol. No meaningful exam. Discussed role of TTM with sister (POA/MDM). Questions addressed. Would recommend re-examination 72 hours post-warming and cessation of sedatives/ paralytics. Cont HACA protocol - may want to consider target temp of 36C given his immunosuppression, particularly if any cultures return positive. Consider stopping vecuronium infusion given shock liver/kidney, which may result in prolonged time for clearance and confounding of exam. Fentanyl/ propofol should provide adequate shiver prevention. Could also use intermittent magnesium pushes as needed for breakthrough shivering. Eulalia hugger on body, warm socks on hands/feet can also suppress shivering response. Will sign off for now. Recall per above for prognostication if needed, sooner for any other neurologic concern. Patient critically ill with coma after cardiopulmonary arrest. 45 mins CC time in direct patient care activities on the floor.
[2017-03-20 12:42] LABS: % IMMATURE GRANULYOCYTES 0.4 % (0.0-1.1); ABSOLUTE IMMATURE GRANULOCYTES 0.02 10^3/uL (0.00-0.10); ADD DIFF? NO; ADD MORPH? NO; ADD SCAN? NO; ATYPICAL LYMPHOCYTE FLAG 0 (0-99); FRAGMENT RBC FLAG 0 (0-99); HEMATOCRIT 49.4 % (40.0-51.0); HEMOGLOBIN 16.8 g/dL (13.7-17.5); LEFT SHIFT FLG 60 (0-99); LIPEMIA HEMOLYSIS FLAG 90 (0-99); MEAN CELL HEMOGLOBIN 31.2 pg (27.9-34.1); MEAN CELL VOLUME 91.8 fL (81.5-99.8); PLATELET CLUMPS FLAG 0 (0-99); PLATELET COUNT 107 10^3/uL (150-400); RED BLOOD CELL COUNT 5.38 10^6/uL (4.40-6.38); RED CELL DISTRIBUTION WIDTH 13.9 % (11.5-15.2)
[2017-03-20] MEDS ORDERED: TACROLIMUS 1 MG CAP PO SCH (12:45)
[2017-03-20 12:51] LABS: IONIZED CALCIUM 1.01 MMOL/L (1.12-1.30)
[2017-03-20 13:03] LABS: ALBUMIN 2.3 g/dL (3.5-5.0); ASPARTATE AMINOTRANSFERASE 61 IU/L (17-59); BILIRUBIN,TOTAL 2.3 mg/dL (0.1-1.4); MAGNESIUM 2.2 mg/dL (1.6-2.3); POTASSIUM 3.3 mEq/L (3.5-5.2)
[2017-03-20 13:15] LABS: CK-MB INTERPRETATION NEGATIVE (NEGATIVE); TROPONIN I 0.146 ng/mL (0-0.034)
[2017-03-20 13:22] LABS: BILIRUBIN-CONJUGATED 1.9 mg/dL (0.0-0.5); BILIRUBIN-UNCONJUGATED 0.4 mg/dL (0.0-1.1)
--- NOTE | 2017-03-20 14:00 | GCON ---
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 He got a hepatitis C infection which eventually lead to a liver transplant 11 years back, status post cardiomyopathy (possibly from his chemotherapy), was on Coreg for a short period of time, after which apparently he did not need carvedilol as further treatment plan from [facility] , after which he was on p.r.n. 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 Last year, he had decreased energy and it was estimated to be due to hepatitis C, and then he went through Harvoni treatment. He was at work yesterday without any obvious health complaint. 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 he a couple of agonal breaths; and after that, he became unresponsive and collapsed. The event was witnessed by his coworkers, who called EMS. It is unclear as to whether he got any CPR. When EMS came, he got 2 shocks, after which he had several episodes of vomiting with some obvious aspiration. He was ventilated after that. On arrival to the emergency room, ACLS was initiated. The patient was intubated. Initial rhythm was PEA. He was given epi x1 and amiodarone, and return of spontaneous circulation was achieved. Total down time is unknown but is estimated to be around 20 minutes. Initial chest x-ray revealed bilateral patchy infiltrates. Initial EKG shows left bundle branch block with rapid rate , but it eventually slowed down overnight. The patient had a transthoracic echo which showed global hypokinesis but no pericardial effusion. Chest x-ray showed bilateral fractures, a small left pneumothorax, dense bilateral infiltrates with surrounding ground-glass opacity. He is undergoing HACA treatment. Initial workup reviewed x-ray which show diffuse bilateral patchy infiltrate, leukocytosis, acidosis, elevated BUN and creatinine. CT angio performed to rule out PE was negative for PE, but there were bilateral infiltrates and surrounding ground-glass opacity, bilateral rib fractures, small left pneumothorax. Emergency transthoracic echo showed global hypokinesis with EF of 25%. was initiated over night. The patient struggled with acidosis as well as with hypertension. has been started. He has been on 100% oxygen. The patient is currently sedated and intubated and ventilated. ALLERGIES: None. PAST MEDICAL HISTORY: Liver transplant in 2004, on chronic immunosuppressive therapy; hepatitis C virus, Harvoni treatment; biventricular cardiomyopathy as described above, baseline left bundle branch block; Pratt sarcoma, status post chemotherapy and radiation therapy. PAST SURGICAL HISTORY: Liver transplant in 2004, Pratt sarcoma biopsy and resection in 1986. FAMILY HISTORY: Noncontributory. SOCIAL HISTORY: Nonsmoker. No significant alcohol use. No drug abuse. He has been for the past 2 years and is independently functioning. Works at [employer] locally. REVIEW OF SYSTEMS: Unable to obtain. PHYSICAL EXAM: VITAL SIGNS: Blood pressure of 91/60, pulse of 60, respiratory rate 16. HEENT: Pupils equal, reacting to light and accommodating. Anicteric sclerae. Mucous membranes moist. No mucosal ulcers. CARDIOVASCULAR: S1, S2. Regular. No murmurs. ABDOMEN: Soft, nontender. No guarding, rigidity. Bowel sounds present. CHEST: Rhonchi diffuse, mechanically ventilated. GI: Soft, nontender. ABDOMEN: Large midline incisional scar. No palpable masses. No distention. : No bladder tumors. No bladder tenderness. SKIN: Mottled. MUSCULOSKELETAL: No abnormalities noted. NEUROLOGICAL: Obtunded. LABORATORY STUDIES: Labs evaluated. Minimal rise in the troponin, and the EKGs and telemonitor evaluated the patient and nonsustained VT overnight which has now resolved with amiodarone. EKG shows left bundle branch block with clear evidence of myocardial disease based on the IVCD; in addition to the left bundle branch block. IMPRESSION AND PLAN: 1. 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 2. Cardiomyopathy. Once the patient is stable, will start him on ideal heart failure medications such as JACEK inhibitors and carvedilol. 3. The patient is a candidate for an ICD implant. Once we see significant improvement in his clinical condition. He is a candidate for a biventricular ICD. 4. Coronary evaluation. Once the patient is more stable, coronary evaluation can be ensued; however, considering the low rise in troponin it is not necessary at this point in time. 5. Hypotension. The patient is on pressure support as per locks tender. 6. Nonsustained VT. Continue IV amiodarone at current point in time. 7. Aspiration. As per locks tender.. /[id number]/MODL and [id number]/MODL KEO
[2017-03-20] MEDS: NOREPINEPHRINE BITARTRATE 16 MG in NS 250 ML IV SCH ×2 (14:55→21:49)
[2017-03-20 15:23] LABS: POTASSIUM 3.4 mEq/L (3.5-5.2)
--- NOTE | 2017-03-20 15:36 | HOSPPROG ---
Hospitalist Progress Note Assessment/Plan: 41 yo M w complex history including nonischemic CMP here w cardiac arrest cardiac arrest: presumed arrhythmogenic as opposed to ischemic given known nonischemic CMP trop rel flat HACA protocol hypotension: pressor support VT: seen on monitor (interp by me) amiodarone restarted liver transplant: continue tacrolimus proph: add LMWH when off HACA acidosis: metabolic improving, albeit w bicarb support code: DNR critical Subjective: case discussed w cyndie acuña Objective: Vital Signs Temp Pulse Resp BP Pulse Ox 33 C L 50 L 28 H 99/75 L 100 03/20/17 15:00 03/20/17 15:00 03/20/17 15:00 03/20/17 15:00 03/20/17 15:00 Microbiology 03/20/17 11:00 Gram Stain - Final Lung Right Middle Lobe - Bronchial Washings Laboratory Results 03/20/17 12:05 03/20/17 14:45 03/19/17 03/20/17 03/21/17 05:59 05:59 05:59 Intake Total 4959 Output Total 1090 290 Balance 3869 -290 PT 16.7 SEC (12.0-15.0) H 03/20/17 10:25 INR 1.35 (0.83-1.16) H 03/20/17 10:25 - Physical Exam Constitutional: no apparent distress, other (intubated, sedated, HACA protocol) Eyes: PERRL, anicteric sclera Ears, Nose, Mouth, Throat: moist mucous membranes, hearing normal Cardiovascular: regular rate and rhythym, no murmur, rub, or gallop Respiratory: no respiratory distress, no rales or rhonchi Gastrointestinal: normoactive bowel sounds, soft, non-tender abdomen Genitourinary: pablo in urethra Skin: normal color, No warm Musculoskeletal: No full muscle strength, No no muscle tenderness Neurologic: No AAOx3, No sensation intact bilaterally Psychiatric: No interacting appropriately ICD10 Worksheet Patient Problems: Problems Problem Status Onset Biventricular heart failure Acute Cardiac arrest Acute Hepatitis C Acute Liver transplant recipient Acute
[2017-03-20] MEDS: TACROLIMUS 1 MG CAP TUBE SCH (16:09)
[2017-03-20 18:21] LABS: MAGNESIUM 1.9 mg/dL (1.6-2.3)
[2017-03-20 18:30] LABS: POTASSIUM 4.1 mEq/L (3.5-5.2)
--- NOTE | 2017-03-20 20:09 | ECHO ---
[id number] + + [address] : : [place] [address] : : [phone] + + Adult Echocardiographic Report + ---------+ :Name: CHAU STROUD 1858Study Date: 03/20/2017 11:31 AM : : Hospital Admission Number: [id number] Josephine agudelo: [birth year]: :: 1975 Gender: Male : :Age: 41 yrs Race: WH,PTNP : :Reason For Study: S/P SCD : :History: Cardiac Arrest : + ---------+ MMode/2D Measurements \T\ Calculations IVSd: 0.98 cm LVIDd: 3.9 cm FS: 7.8 % LVOT diam: 1.8 cm LVPWd: 0.92 cm LVIDs: 3.6 cm EDV(Teich): 66.6 ml ESV(Teich): 54.9 ml LVOT area: 2.6 cm2 EF(Teich): 17.6 % Normal Measurement Values: + + :LVIDd (3.5-5.7cm) IVSd (0.6-1.1cm) LVPWd (0.6-1.1cm) Aortic Root (2.0-3.7cm)Left Atrium (1.5-4.0cm): :LV Vol(d) (76-115ml) LV Vol(s) (29-48ml) Ejec Fraction (50-65%)PV Beck (0.6- 1.2m/s) TV Beck (0.4-1.0m/s) : :MV E Beck (0.8-1.0m/s)MV A Beck (0.3-1.0m/s)LVOT Beck (0.7-1.2m/s) Asc Ao Beck ( 0.9-1.8m/s) : + + Doppler Measurements \T\ Calculations LV V1 max: 48.1 cm/sec PA V2 max: 51.9 cm/sec TR max beck: 186.0 cm/sec LV V1 max P.93 mmHg PA max P.1 mmHg TR max P.8 mmHg Left Ventricle The left ventricle is normal in size. There is normal left ventricular wall thickness. Ejection Fraction = 10-15%%. There is severe global hypokinesis of the left ventricle. Akinetic [place]. Other regional wall abnormalities can not be determined on the basis of this study. Right Ventricle RV is normal in size by visual assessment. The right ventricular systolic function is moderately reduced. Mitral Valve The mitral valve is normal. Tricuspid Valve The tricuspid valve is normal in structure and function. There is mild tricuspid regurgitation. Aortic Valve The aortic valve is trileaflet. There is no aortic insufficiency. Pulmonic Valve The pulmonic valve is not well visualized. Pericardium/Pleural There is a fat pad seen. There is no pericardial effusion. Conclusion A complete two-dimensional transthoracic echocardiogram was performed (2D, M-mode, Doppler and color flow Doppler). The study was technically difficult. The study was technically limited. No apical windows available due to lung artifact. Ejection Fraction = 10-15%%. Akinetic [place]. Other regional wall abnormalities can not be determined on the basis of this study. There is severe global hypokinesis of the left ventricle. The right ventricular systolic function is moderately reduced. There is mild tricuspid regurgitation. Final Reading Physician: Negra Sotelo signed on 03/20/2017 08:08 PM Ordering Physician: Arnel Negrete Performed By: Georgiana Raymundo
[2017-03-20] MEDS ORDERED: NOREPINEPHRINE BITARTRATE 4 MG in D5W 500 ML IV SCH (22:30)
[2017-03-20 23:17] LABS: HEMATOCRIT 49.9 % (40.0-51.0); HEMOGLOBIN 16.9 g/dL (13.7-17.5); MEAN CELL HEMOGLOBIN 30.3 pg (27.9-34.1); MEAN CELL HEMOGLOBIN CONCENTR. 33.9 g/dL (32.4-36.7); MEAN CELL VOLUME 89.6 fL (81.5-99.8); RED BLOOD CELL COUNT 5.57 10^6/uL (4.40-6.38); RED CELL DISTRIBUTION WIDTH 13.7 % (11.5-15.2)
[2017-03-20 23:18] LABS: BICARBONATE 21 mEq/L (22-26); MEASURED OXYGEN SATURATION 99 % (92-95); TCO2 22 mEq/L (23-27)
[2017-03-20 23:24] LABS: ASSIST CONTROL YES; PCO2 31 mmHg (34-38); PO2 218 mmHg (65-75)
[2017-03-20 23:25] LABS: END TIDAL CO2 26; P/F RATIO 218 RATIO
[2017-03-20 23:26] LABS: O2 CONCENTRATIION 100 % (0-100)
[2017-03-20 23:40] LABS: ALANINE AMINOTRANSFERASE 45 IU/L (21-72); ALBUMIN 2.1 g/dL (3.5-5.0); ALKALINE PHOSPHATASE 64 IU/L (38-126); ANION GAP 7 mEq/L (8-16); ASPARTATE AMINOTRANSFERASE 63 IU/L (17-59); BILIRUBIN,TOTAL 3.3 mg/dL (0.1-1.4); CALCIUM 6.4 mg/dL (8.5-10.4); CARBON DIOXIDE 20 mEq/l (22-31); CHLORIDE 105 mEq/L (97-110); CREATININE 1.1 mg/dL (0.7-1.3); GLOMERULAR FILTRATION RATE > 60; GLUCOSE 129 mg/dL (70-100); MAGNESIUM 1.8 mg/dL (1.6-2.3); POTASSIUM 3.9 mEq/L (3.5-5.2); SODIUM 132 mEq/L (134-144); TOTAL PROTEIN 4.8 g/dL (6.3-8.2)
[2017-03-20 23:47] LABS: INR 1.34 (0.83-1.16); PROTIME(PATIENT) 16.6 SEC (12.0-15.0)
[2017-03-20 23:48] LABS: APTT 29.3 SEC (23.0-38.0)
[2017-03-20 23:54] LABS: BILIRUBIN-CONJUGATED 2.4 mg/dL (0.0-0.5); BILIRUBIN-UNCONJUGATED 0.9 mg/dL (0.0-1.1)
[2017-03-21] MEDS: PETROLAT,WHT/MIN OIL/SOD CHL 3.5 GM OPHT.OINT EACHEYE PRN ×2 (00:04→04:40)
[2017-03-21 01:32] LABS: BICARBONATE 22 mEq/L (22-26); MEASURED OXYGEN SATURATION 99 % (92-95); PCO2 44 mmHg (34-38); PO2 215 mmHg (65-75); TCO2 23 mEq/L (23-27)
[2017-03-21] MEDS: fentaNYL/NACL 100 ML IV SCH (01:41)
[2017-03-21] MEDS: PROPOFOL/EMULSION 100 ML IV SCH ×2 (01:41→13:34)
[2017-03-21] MEDS ORDERED: CALCIUM GLUCONATE 50 ML IV ONE ×2 (02:12→14:44)
[2017-03-21] MEDS: NS 1,000 ML IV SCH ×2 (02:45→13:58)
[2017-03-21 03:39] LABS: MAGNESIUM 1.8 mg/dL (1.6-2.3)
[2017-03-21 05:16] LABS: BASE EXCESS -2.9 mEq/L (-2.5-2.5); BICARBONATE 22 mEq/L (22-26); IONIZED CALCIUM 1.03 MMOL/L (1.12-1.30); MEASURED OXYGEN SATURATION 98 % (92-95); PCO2 33 mmHg (34-38); PO2 94 mmHg (65-75); TCO2 23 mEq/L (23-27)
[2017-03-21 05:18] LABS: ASSIST CONTROL YES; END TIDAL CO2 27; O2 CONCENTRATIION 70 % (0-100); P/F RATIO 134 RATIO
[2017-03-21 05:19] LABS: TOTAL RATE 28
[2017-03-21] MEDS: NOREPINEPHRINE BITARTRATE 16 MG in NS 250 ML IV SCH ×3 (05:25→21:14)
[2017-03-21] MEDS: TACROLIMUS 1 MG CAP TUBE SCH ×2 (05:33→16:27)
[2017-03-21 06:52] LABS: MAGNESIUM 1.7 mg/dL (1.6-2.3)
[2017-03-21] MEDS: VASOPRESSIN/DEXTROSE 250 ML IV SCH (07:58)
[2017-03-21] MEDS ORDERED: MAINTAIN PARALYTIC,ANALGESIA,SEDATION UNTIL TEMP IS 36C MISC SCH (09:00)
[2017-03-21] MEDS ORDERED: RN MUST REMOVE K+ & MG+ PROTOCOL FROM WORKLIST AT 36 C MISC SCH (09:00)
[2017-03-21] MEDS ORDERED: RN MUST ADD CA+ & PHOS PROTOCOL TO WORKLIST AT 36 C MISC SCH (09:00)
[2017-03-21] MEDS: CHLORHEXIDINE GLUCONATE 15 ML UDL PO SCH ×2 (09:02→21:34)
[2017-03-21] MEDS: ERTAPENEM 1 GM in NS 100 ML IV SCH (09:02)
--- NOTE | 2017-03-21 09:14 | PDINTPN ---
Sccm Administrator Progress Note Assessment/Plan: Assessment/plan: * Status post cardiac arrest * HACA-per protocol. Patient should be warm at 11:00 a.m. this morning * Acute hypoxemic respiratory failure-secondary to aspiration. Currently on pressure control ventilation -assess for changing to more conventional mode mechanical ventilation * Aspiration pneumonitis-continue antibiotics * Cardiomyopathy * History of liver transplant * Immunosuppression * Chronic Hepatitis-C * History of Pratt sarcoma as a child * Metabolic acidosis-improved -will decrease bicarb drip * Sedation-sedated and paralyzed currently. Will DC paralysis once warm * Prognosis-will better assess once patient is fully warm. Will consider neurology consult that time. 40 minutes of critical care time spent with the patient. Case discussed with family, RT and nursing. Subjective: Sedated and paralyzed Objective: Vital Signs Temp Pulse Resp BP Pulse Ox 34.9 C L 58 L 28 H 124/81 H 100 03/21/17 08:00 03/21/17 08:00 03/21/17 08:00 03/21/17 08:00 03/21/17 08:00 Microbiology 03/20/17 11:00 Mycobacterial Smear (ROBY) - Final Lung Bilateral - Bronchial Washings 03/20/17 11:00 Gram Stain - Final Lung Right Middle Lobe - Bronchial Washings Laboratory Results 03/20/17 23:10 03/21/17 06:00 03/20/17 03/21/17 03/22/17 05:59 05:59 05:59 Intake Total 4959 6619.8 Output Total 1090 834 Balance 3869 5785.8 PT 16.6 SEC (12.0-15.0) H 03/20/17 23:10 INR 1.34 (0.83-1.16) H 03/20/17 23:10 Laboratory Results 03/20/17 23:10 03/21/17 06:00 03/21/17 03/21/17 03/20/17 06:00 05:10 06:00 Patient Temperature 34.2 DEGREES DEGREES 33.1 DEGREES DEGREES pCO2 33 mmHg L mmHg 50 mmHg H mmHg (34 - 38) (34 - 38) pO2 94 mmHg H D mmHg 52 mmHg L mmHg (65 - 75) (65 - 75) Total CO2 23 mEq/L mEq/L 22 mEq/L L mEq/L (23 - 27) (23 - 27) ABG pH 7.41 7.20 L (7.35 - 7.45) (7.35 - 7.45) ABG PO2/FiO2 Ratio 134 RATIO RATIO 52 RATIO RATIO ABG HCO3 22 mEq/L mEq/L 20 mEq/L L mEq/L (22 - 26) (22 - 26) ABG O2 Saturation 98 % H % 86 % L % (92 - 95) (92 - 95) ABG Base Excess -2.9 mEq/L L mEq/L -10.1 mEq/L L mEq/L (-2.5 - 2.5) (-2.5 - 2.5) O2 Concentration % 70 % % 100 % % Respiration Rate 28 Actual Respiration Rate 28 Set Respiration Rate 28 28 SIMV Assist Control YES YES Inspiratory Time 0.8 SECS SECS Tidal Volume 500 End Tidal CO2 27 39 PEEP 10 15 Peak Inspir Pressure 20 Pressure Support Potassium 4.0 mEq/L mEq/L (3.5 - 5.2) Phosphorus 3.1 mg/dL D mg/dL (2.5 - 4.5) Magnesium 1.7 mg/dL mg/dL (1.6 - 2.3) 03/20/17 03/20/17 03:45 03:05 Patient Temperature 33.1 DEGREES DEGREES 33.1 DEGREES DEGREES pCO2 41 mmHg H mmHg 34 mmHg mmHg (34 - 38) (34 - 38) pO2 50 mmHg L mmHg 46 mmHg L mmHg (65 - 75) (65 - 75) Total CO2 20 mEq/L L mEq/L 19 mEq/L L mEq/L (23 - 27) (23 - 27) ABG pH 7.25 L 7.31 L (7.35 - 7.45) (7.35 - 7.45) ABG PO2/FiO2 Ratio 50 RATIO RATIO 46 RATIO RATIO ABG HCO3 18 mEq/L L mEq/L 18 mEq/L L mEq/L (22 - 26) (22 - 26) ABG O2 Saturation 86 % L % 86 % L % (92 - 95) (92 - 95) ABG Base Excess -10.1 mEq/L L mEq/L -8.8 mEq/L L mEq/L (-2.5 - 2.5) (-2.5 - 2.5) O2 Concentration % 100 % % 100 % % Respiration Rate Actual Respiration Rate 22 22 Set Respiration Rate 22 22 SIMV YES YES Assist Control Inspiratory Time Tidal Volume 550 650 End Tidal CO2 31 27 PEEP 15 12 Peak Inspir Pressure Pressure Support 10 10 Potassium Phosphorus Magnesium - Time Spent With Patient Time Spent With Patient: 40 Physical Exam - Physical Exam General Appearance: alert EENT: ET tube Neck: non-tender, full range of motion Respiratory: crackles (Scattered), No respiratory distress, No wheezing Cardiac/Chest: normal peripheral pulses, regular rate, rhythm, systolic murmur Abdomen: normal bowel sounds, non-tender, soft Male Genitalia: deferred Rectal: deferred Skin: normal color, warm/dry Neuro/Psych: No alert ICD10 Worksheet Patient Problems: Problems Problem Status Onset Biventricular heart failure Acute Cardiac arrest Acute Hepatitis C Acute Liver transplant recipient Acute
[2017-03-21] MEDS: PANTOPRAZOLE SODIUM 40 MG in NS 100 ML IV SCH ×2 (09:38→21:34)
[2017-03-21] MEDS: SODIUM BICARBONATE 150 MEQ in D5W 1,000 ML IV SCH (09:45)
[2017-03-21] MEDS ORDERED: PROTOCOL CALCIUM 1 DOSE IV PRN (09:49)
[2017-03-21] MEDS ORDERED: PROTOCOL K PHOSPHATE 1 DOSE IV PRN (09:49)
--- NOTE | 2017-03-21 10:20 | SOAPPROG ---
SOAP Progress Note Assessment/Plan: Assessment/Plan: This is a 41 yr male unfortunate male with Pratt's sarcoma, Hep C, s/p liver transplant, who has CMP and related arrhythmic event and SCD from which he was resuscitated. VT: Had NSVT yesterday when Amiodarone stopped briefly. Restarted Amiodarone, he is doing well. No changes while rewarming the pt Hypotension: On pressor support. needs substantial support for now. CMP: No role for heart failure meds for now since he continues to be hypotensive. May need LHC once he recovers clinically He will also need BiV ICD once he recovers clinically. 03/21/17 10:15 Subjective: Pt is sedated ventilated intubated. Objective: Vital Signs Temp Pulse Resp BP Pulse Ox 34.9 C L 65 28 H 96/63 L 100 03/21/17 10:00 03/21/17 10:00 03/21/17 10:00 03/21/17 10:00 03/21/17 10:00 Microbiology 03/20/17 11:00 Gram Stain - Final Lung Right Middle Lobe - Bronchial Washings 03/20/17 11:00 Mycobacterial Smear (ROBY) - Final Lung Bilateral - Bronchial Washings Laboratory Results 03/20/17 23:10 03/21/17 06:00 03/20/17 03/21/17 03/22/17 05:59 05:59 05:59 Intake Total 4959 6619.8 Output Total 1090 834 125 Balance 3869 5785.8 -125 PT 16.6 SEC (12.0-15.0) H 03/20/17 23:10 INR 1.34 (0.83-1.16) H 03/20/17 23:10 Physical Exam - Physical Exam General Appearance: no apparent distress, No alert EENT: PERRL/EOMI, pharynx normal Neck: non-tender, supple Respiratory: crackles, rales, rhonchi Cardiac/Chest: regular rate, rhythm, No edema, No gallop Abdomen: non-tender, soft Skin: warm/dry, No cyanosis ICD10 Worksheet Patient Problems: Problems Problem Status Onset Biventricular heart failure Acute Cardiac arrest Acute Hepatitis C Acute Liver transplant recipient Acute
[2017-03-21] MEDS: PHENYLEPHRINE HCL 50 MG in NS 250 ML IV SCH ×2 (11:23→19:08)
[2017-03-21 11:27] LABS: BASE EXCESS -1.2 mEq/L (-2.5-2.5); BICARBONATE 25 mEq/L (22-26); IONIZED CALCIUM 0.93 MMOL/L (1.12-1.30); MEASURED OXYGEN SATURATION 95 % (92-95); PCO2 45 mmHg (34-38); PO2 79 mmHg (65-75); TCO2 26 mEq/L (23-27)
[2017-03-21 11:28] LABS: ASSIST CONTROL YES
[2017-03-21 11:29] LABS: O2 CONCENTRATIION 70 % (0-100); P/F RATIO 113 RATIO
[2017-03-21 11:37] LABS: INR 1.56 (0.83-1.16); PROTIME(PATIENT) 18.7 SEC (12.0-15.0)
[2017-03-21 11:39] LABS: APTT 31.9 SEC (23.0-38.0)
[2017-03-21 12:57] LABS: HEMATOCRIT 46.1 % (40.0-51.0); HEMOGLOBIN 15.8 g/dL (13.7-17.5); MEAN CELL HEMOGLOBIN 30.7 pg (27.9-34.1); MEAN CELL HEMOGLOBIN CONCENTR. 34.3 g/dL (32.4-36.7); MEAN CELL VOLUME 89.5 fL (81.5-99.8); RED BLOOD CELL COUNT 5.15 10^6/uL (4.40-6.38)
[2017-03-21 12:58] LABS: % IMMATURE GRANULYOCYTES 1.8 % (0.0-1.1); ABSOLUTE IMMATURE GRANULOCYTES 0.27 10^3/uL (0.00-0.10); ADD DIFF? NO; ADD MORPH? NO; ADD SCAN? YES; ATYPICAL LYMPHOCYTE FLAG 0 (0-99); FRAGMENT RBC FLAG 0 (0-99); LIPEMIA HEMOLYSIS FLAG 90 (0-99); MEAN PLATELET VOLUME 10.8 fL (8.7-11.7); PLATELET CLUMPS FLAG 0 (0-99); PLATELET COUNT 59 10^3/uL (150-400)
[2017-03-21 13:01] LABS: LEFT SHIFT FLG 150 (0-99)
[2017-03-21 13:04] LABS: ALBUMIN 2.1 g/dL (3.5-5.0); ANION GAP 7 mEq/L (8-16); ASPARTATE AMINOTRANSFERASE 62 IU/L (17-59); BILIRUBIN,TOTAL 3.5 mg/dL (0.1-1.4); CALCIUM 6.3 mg/dL (8.5-10.4); CARBON DIOXIDE 24 mEq/l (22-31); CHLORIDE 102 mEq/L (97-110); CREATININE 1.1 mg/dL (0.7-1.3); GLOMERULAR FILTRATION RATE > 60; GLUCOSE 89 mg/dL (70-100); MAGNESIUM 1.7 mg/dL (1.6-2.3); POTASSIUM 3.8 mEq/L (3.5-5.2); SODIUM 133 mEq/L (134-144)
--- NOTE | 2017-03-21 13:18 | HOSPPROG ---
Hospitalist Progress Note Assessment/Plan: 41 yo M w complex history including nonischemic CMP here w cardiac arrest cardiac arrest: presumed arrhythmogenic as opposed to ischemic given known nonischemic CMP trop rel flat HACA protocol, now rewarming hypotension: pressor support VT: seen on monitor (interp by me) amiodarone LESS V liver transplant: continue tacrolimus lft's at baseline neuro: remains sedated just rewarming now neuro note mentions neuro re- eval in 72 hours proph: add LMWH when off HACA acidosis: metabolic improving, albeit w bicarb support code: DNR critical Subjective: rewarming. tele: less VT (interp by me). cxr: less air space disease. case d/w benny rodriguez and cyndie Objective: Vital Signs Temp Pulse Resp BP Pulse Ox 35.9 C L 72 28 H 110/64 100 03/21/17 13:00 03/21/17 13:00 03/21/17 13:00 03/21/17 13:00 03/21/17 13:00 Microbiology 03/20/17 11:00 Gram Stain - Final Lung Right Middle Lobe - Bronchial Washings 03/20/17 11:00 Mycobacterial Smear (ROBY) - Final Lung Bilateral - Bronchial Washings Laboratory Results 03/21/17 12:40 03/20/17 03/21/17 03/22/17 05:59 05:59 05:59 Intake Total 4959 6619.8 Output Total 1090 834 125 Balance 3869 5785.8 -125 PT 18.7 SEC (12.0-15.0) H 03/21/17 11:00 INR 1.56 (0.83-1.16) H 03/21/17 11:00 - Physical Exam Constitutional: other (intubated, sedated) Eyes: PERRL, anicteric sclera Ears, Nose, Mouth, Throat: moist mucous membranes, hearing normal Cardiovascular: regular rate and rhythym, no murmur, rub, or gallop Respiratory: no respiratory distress, no rales or rhonchi Gastrointestinal: normoactive bowel sounds, soft, non-tender abdomen Genitourinary: pablo in urethra, No no bladder fullness Skin: No warm Musculoskeletal: full muscle strength, no muscle tenderness Neurologic: No AAOx3, No sensation intact bilaterally Psychiatric: interacting appropriately, not anxious Lymph, Heme, Immunologic: no cervical LAD ICD10 Worksheet Patient Problems: Problems Problem Status Onset Biventricular heart failure Acute Cardiac arrest Acute Hepatitis C Acute Liver transplant recipient Acute
[2017-03-21 13:25] LABS: BILIRUBIN-CONJUGATED 2.3 mg/dL (0.0-0.5); BILIRUBIN-UNCONJUGATED 1.2 mg/dL (0.0-1.1)
[2017-03-21 14:18] LABS: SCAN POSITIVE
[2017-03-21 14:22] LABS: PLATELET ESTIMATE DECREASED (ADEQ)
[2017-03-21 14:31] LABS: ECHINOCYTES 1+
[2017-03-21 14:32] LABS: POLYCHROMASIA 1+
[2017-03-21] MEDS ORDERED: AMIODARONE HCL 900 MG in D5W 500 ML IV SCH ×2 (15:00→17:00)
[2017-03-21 15:47] LABS: MAGNESIUM 1.6 mg/dL (1.6-2.3); POTASSIUM 3.9 mEq/L (3.5-5.2)
[2017-03-21] MEDS ORDERED: POTASSIUM Cl (KCl) 50 ML IV ONE (16:13)
[2017-03-21] MEDS ORDERED: MAGNESIUM SULF 1 GM/DEXTROSE 100 ML IV ONE (16:13)
[2017-03-21 23:11] LABS: ANION GAP 8 mEq/L (8-16); CALCIUM 6.3 mg/dL (8.5-10.4); CARBON DIOXIDE 24 mEq/l (22-31); CHLORIDE 103 mEq/L (97-110); CREATININE 1.3 mg/dL (0.7-1.3); GLOMERULAR FILTRATION RATE > 60; GLUCOSE 105 mg/dL (70-100); MAGNESIUM 1.8 mg/dL (1.6-2.3); POTASSIUM 4.2 mEq/L (3.5-5.2); SODIUM 135 mEq/L (134-144)
[2017-03-21 23:20] LABS: INR 1.72 (0.83-1.16); PROTIME(PATIENT) 20.2 SEC (12.0-15.0)
[2017-03-21 23:21] LABS: APTT 31.9 SEC (23.0-38.0)
[2017-03-22] MEDS: NS 1,000 ML IV SCH (01:31)
[2017-03-22] MEDS: PROPOFOL/EMULSION 100 ML IV SCH (01:32)
[2017-03-22] MEDS: PHENYLEPHRINE HCL 50 MG in NS 250 ML IV SCH (01:32)
[2017-03-22 05:16] LABS: BASE EXCESS 2.6 mEq/L (-2.5-2.5); BICARBONATE 25 mEq/L (22-26); HEMATOCRIT 37.7 % (40.0-51.0); HEMOGLOBIN 13.1 g/dL (13.7-17.5); IONIZED CALCIUM 0.94 MMOL/L (1.12-1.30); MEAN CELL HEMOGLOBIN 31.4 pg (27.9-34.1); MEAN CELL HEMOGLOBIN CONCENTR. 34.7 g/dL (32.4-36.7); MEAN CELL VOLUME 90.4 fL (81.5-99.8); MEASURED OXYGEN SATURATION 97 % (92-95); PCO2 36 mmHg (34-38); PO2 102 mmHg (65-75); RED BLOOD CELL COUNT 4.17 10^6/uL (4.40-6.38); RED CELL DISTRIBUTION WIDTH 14.4 % (11.5-15.2); TCO2 26 mEq/L (23-27)
[2017-03-22 05:18] LABS: ASSIST CONTROL YES; O2 CONCENTRATIION 70 % (0-100); P/F RATIO 146 RATIO
[2017-03-22 05:19] LABS: TOTAL RATE 28
[2017-03-22] MEDS: TACROLIMUS 1 MG CAP TUBE SCH ×2 (05:23→17:19)
[2017-03-22 05:32] LABS: MAGNESIUM 1.7 mg/dL (1.6-2.3); POTASSIUM 3.7 mEq/L (3.5-5.2)
[2017-03-22 11:10] LABS: ANION GAP 5 mEq/L (8-16); CALCIUM 6.1 mg/dL (8.5-10.4); CARBON DIOXIDE 27 mEq/l (22-31); CHLORIDE 103 mEq/L (97-110); CREATININE 1.2 mg/dL (0.7-1.3); GLOMERULAR FILTRATION RATE > 60; GLUCOSE 112 mg/dL (70-100); POTASSIUM 3.7 mEq/L (3.5-5.2); SODIUM 135 mEq/L (134-144); TROPONIN I 0.031 ng/mL (0-0.034)
[2017-03-22] MEDS: ERTAPENEM 1 GM in NS 100 ML IV SCH (11:18)
[2017-03-22] MEDS: CHLORHEXIDINE GLUCONATE 15 ML UDL PO SCH ×2 (11:19→22:16)
[2017-03-22] MEDS: PANTOPRAZOLE SODIUM 40 MG in NS 100 ML IV SCH ×2 (11:20→21:21)
[2017-03-22] MEDS ORDERED: POTASSIUM Cl (KCl) 50 ML IV ONE (11:38)
[2017-03-22] MEDS ORDERED: MAGNESIUM SULF 1 GM/DEXTROSE 100 ML IV ONE (11:38)
[2017-03-22] MEDS ORDERED: CALCIUM GLUCONATE 50 ML IV ONE (11:38)
--- NOTE | 2017-03-22 11:45 | HOSPPROG ---
Hospitalist Progress Note Assessment/Plan: 41 yo M w complex history including nonischemic CMP here w cardiac arrest cardiac arrest: presumed arrhythmogenic as opposed to ischemic given known nonischemic CMP trop rel flat HACA protocol, now rewarmed ability to follow commands this AM is very encouraging hypotension: pressor support wean neosynephrine to off as not great choice w CMP dc propofol VT: seen on monitor (interp by me) amiodarone LESS VT w amio can likely transition amio to po liver transplant: continue tacrolimus lft's at baseline neuro: as above proph: add LMWH when off HACA acidosis: metabolic improving, dc bicarb code: DNR critical Subjective: following commands today! less VT on tele (interp by me) case d/w dr perrin Objective: Vital Signs Temp Pulse Resp BP Pulse Ox 38.1 C 98 28 H 100/55 L 88 L 03/22/17 05:00 03/22/17 11:11 03/22/17 05:00 03/22/17 05:00 03/22/17 11:11 Microbiology 03/20/17 11:00 Gram Stain - Final Lung Right Middle Lobe - Bronchial Washings Bronchial Washings Culture - Final Laboratory Results 03/22/17 05:10 03/22/17 09:55 03/21/17 03/22/17 03/23/17 05:59 05:59 05:59 Intake Total 6619.8 2949 Output Total 834 490 Balance 5785.8 2459 PT 20.2 SEC (12.0-15.0) H 03/21/17 22:10 INR 1.72 (0.83-1.16) H 03/21/17 22:10 - Physical Exam Constitutional: no apparent distress, appears nourished Eyes: PERRL, anicteric sclera Ears, Nose, Mouth, Throat: moist mucous membranes, hearing normal Cardiovascular: regular rate and rhythym, no murmur, rub, or gallop, No systolic murmur Respiratory: no respiratory distress, other, No no rales or rhonchi (rhoncorous anterolat) Gastrointestinal: normoactive bowel sounds, soft, non-tender abdomen Genitourinary: pablo in urethra Skin: warm, normal color Musculoskeletal: No full muscle strength Neurologic: AAOx3 Psychiatric: interacting appropriately ICD10 Worksheet Patient Problems: Problems Problem Status Onset Biventricular heart failure Acute Cardiac arrest Acute Hepatitis C Acute Liver transplant recipient Acute
[2017-03-22] MEDS: ENOXAPARIN 40 MG/0.4 ML SYR SC SCH (11:51)
[2017-03-22 12:13] LABS: BASE EXCESS 2.4 mEq/L (-2.5-2.5); BICARBONATE 27 mEq/L (22-26); PCO2 47 mmHg (34-38); PO2 64 mmHg (65-75); TCO2 29 mEq/L (23-27)
[2017-03-22 12:14] LABS: CPAP YES; END TIDAL CO2 47; MEASURED OXYGEN SATURATION 89 % (92-95); O2 CONCENTRATIION 50 % (0-100); P/F RATIO 128 RATIO; PATIENT RATE 40; PRESSURE SUPPORT 7
[2017-03-22 12:31] LABS: ALANINE AMINOTRANSFERASE 35 IU/L (21-72); ALKALINE PHOSPHATASE 74 IU/L (38-126); ASPARTATE AMINOTRANSFERASE 52 IU/L (17-59); BILIRUBIN,TOTAL 2.5 mg/dL (0.1-1.4); BILIRUBIN-CONJUGATED 1.3 mg/dL (0.0-0.5); BILIRUBIN-UNCONJUGATED 1.2 mg/dL (0.0-1.1); POTASSIUM 3.7 mEq/L (3.5-5.2); TOTAL PROTEIN 4.2 g/dL (6.3-8.2)
[2017-03-22] MEDS ORDERED: LIDOCAINE 1% 300 MG/30 ML SDV ONE (13:06)
--- NOTE | 2017-03-22 14:04 | PDINTPN ---
Dock Operator Progress Note Assessment/Plan: Assessment: * Status post out of hospital VFib cardiac arrest. Rhythm stable on amiodarone. Blood pressures remain marginal. * HACA-completed protocol. Re-warmed, doing well overall. * Acute hypoxemic respiratory failure-secondary to aspiration/arrest. On SIMV with oxygen requirements still of 50%. Tolerating CPAP weans but marginal, and has persistent bilateral infiltrates. Will not extubate today. * Aspiration pneumonitis-continue Invanz * Hypotension: Blood pressures remain borderline, on Levophed. Weaning as tolerated to keep MAP > 65. * Cardiomyopathy: Ejection fraction 10-15% 2 days ago. Still remains volume overloaded. 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 * Thrombocytopenia: Impart chronic. Follow. * Metabolic acidosis-improved, off bicarb drip * Sedation-on low-dose sedation and fentanyl. Will change propofol to Precedex well on the ventilator, and continue intermittent CPAP weans. * Prognosis-neuro status appears to be intact. Will be able to evaluate this much better once he has been extubated and medications off. * Prophylactic anticoagulation: On Lovenox. * GI prophylaxis: On pantoprazole * Nutrition: None currently. Will continue to hold comma re-evaluate tomorrow. Plan: Continue ventilatory support for now. Reassess extubation in the a.m.. Continue CPAP weans. Continue low-dose fentanyl. Will switch to Precedex. Follow chest x-ray and laboratory. Follow neuro status, with more thorough evaluation post extubation. Will hold off on neurologic consultation for now. Continue antibiotics. Continue amiodarone. Continue supportive care otherwise. 1 hour of critical care time was spent with the patient. Discussed issues with the patient's sister who is an ICU nurse, the hospitalist, RT, nursing, and the ICU multi disciplinary team. Subjective: On vent. Lightly sedated, waking up, moves all extremities, responds to simple commands, nods head Objective: Vital Signs Temp Pulse Resp BP Pulse Ox 37.9 C 97 31 H 104/59 L 91 L 03/22/17 09:00 03/22/17 12:01 03/22/17 09:00 03/22/17 09:00 03/22/17 12:01 Microbiology 03/20/17 11:00 Gram Stain - Final Lung Right Middle Lobe - Bronchial Washings Bronchial Washings Culture - Final Laboratory Results 03/22/17 05:10 03/22/17 09:55 03/21/17 03/22/17 03/23/17 05:59 05:59 05:59 Intake Total 6619.8 2949 Output Total 834 490 10 Balance 5785.8 2459 -10 PT 20.2 SEC (12.0-15.0) H 03/21/17 22:10 INR 1.72 (0.83-1.16) H 03/21/17 22:10 Laboratory Tests 03/22/17 03/22/17 03/22/17 05:00 05:10 05:10 pCO2 pO2 ABG pH ABG O2 Saturation O2 Concentration % CPAP Calcium Ionized Calcium 0.94 L Phosphorus 2.5 D Magnesium 1.7 Total Bilirubin 2.5 H Conjugated Bilirubin 1.3 H AST 52 ALT 35 Troponin I Albumin 2.0 L 03/22/17 03/22/17 09:55 11:55 pCO2 47 H pO2 64 L ABG pH 7.39 ABG O2 Saturation 89 L O2 Concentration % 50 CPAP YES Calcium 6.1 L Ionized Calcium Phosphorus Magnesium Total Bilirubin Conjugated Bilirubin AST ALT Troponin I 0.031 Albumin CXR: Bilateral infiltrates persist with bibasilar atelectasis/effusions. High right hemidiaphragm with smaller volume on the right, consistent with previous right lower lobectomy/thoracic surgery Physical Exam - Physical Exam General Appearance: mild distress (Uncomfortable), other (Lightly sedated) EENT: PERRL/EOMI (Small), ET tube, other (Oral gastric tube in place) Neck: normal inspection (JVP = 12) Respiratory: lungs clear (Anteriorly), decreased breath sounds (At the bases), rales (Few at bases), rhonchi (Few, with bloody secretions) Cardiac/Chest: regular rate, rhythm Abdomen: non-tender, soft, No normal bowel sounds (Decreased, present) Male Genitalia: other (Stein catheter in place, input greater than output last several days) Skin: warm/dry, pallor Extremities: pedal edema, swelling Neuro/Psych: no motor/sensory deficits (Moves all extremities), No cognition abnormalities (Follows commands but detailed mental status examination cannot be done) ICD10 Worksheet Patient Problems: Problems Problem Status Onset Biventricular heart failure Acute Cardiac arrest Acute Hepatitis C Acute Liver transplant recipient Acute
[2017-03-22] MEDS: DEXMEDETOMIDINE HCL 400 MCG in NS 100 ML IV SCH ×2 (14:27→19:34)
[2017-03-22] MEDS: PETROLAT,WHT/MIN OIL/SOD CHL 3.5 GM OPHT.OINT EACHEYE PRN (18:06)
[2017-03-22] MEDS ORDERED: FUROSEMIDE 40 MG/4 ML VIAL IVP ONE (23:28)
--- NOTE | 2017-03-23 00:04 | PDCARPN ---
Cardiology Progress Note Assessment/Plan: Late Entry: patient seen at 16:30 on 03/22/17; long discussion with sister, nursing staff, and hospitalist service 41-year-old male who presented with an [id number] cardiac arrest; initial rhythm in the field was ventricular fibrillation; defibrillation resulted in nondenominational of sinus rhythm without adequate perfusion (i.e.- PEA); return of spontaneous circulation with CPR and IV epinephrine. Has a history of Pratt sarcoma, liver failure with orthotopic transplantation in 2004, subsequent hepatitis C treated with Harvoni. Long-standing history of nonischemic cardiomyopathy and left bundle branch block. Best LVEF over the past several years was reported as 30-35%; had been on carvedilol and JACEK-I/ARB in the past. However, because of stability with no significant CHF, these medicines were DC' d. At the time of admission his only cardiac medication was PRN furosemide 20 mg for noticeable edema. Has had cardiac catheterization in the past which demonstrated angiographically normal coronary arteries. Sudden Cardiac - survived [id number] cardiac arrest with initial field rhythm of ventricular fibrillation; NSVT early in hospital course. * Maintaining normal sinus rhythm on amiodarone. Nonischemic Cardiomyopathy- long-standing with LVEF historically 30-35%; echocardiogram early in his hospital course demonstrated LVEF 10-15% post arrest. * Will plan on limited echo after extubation for reassessment of LVEF. Acute Systolic CHF- bilateral pleural effusions and air space disease consistent with a component of volume overload. * IV furosemide 40 mg x1 and p.r.n. thereafter. * Will plan on limited echocardiography for assessment of LV after the patient is extubated. Hypotension-currently being supported with IV Levophed. Hopefully can be extubated in the near future. Reported by family to be responsive and following commands when sedation was lightened for a weaning trial earlier today. IV pressor support as needed for support of blood pressure. Eventually will need institution of a standard CHF regimen to include beta luther,JACEK-I/ARB, loop diuretic, and aldosterone receptor antagonist. Depending on neurologic recovery, will likely need ICD implantation for secondary prevention of sudden cardiac . 03/22/17 23:51 Subjective: Intubated and sedated. Reviewed/Discussed With: family, hospitalist Objective: Vital Signs (8 Hrs) Temp Pulse Resp BP Pulse Ox 03/22/17 23:00 79 35 H 106/55 L 95 03/22/17 22:00 37.6 C 78 34 H 97/54 L 93 03/22/17 21:00 37.6 C 76 36 H 100/56 L 94 03/22/17 20:00 77 33 H 97/57 L 95 03/22/17 19:00 37.4 C 79 30 H 90/56 L 95 03/22/17 18:00 37.4 C 80 32 H 96/50 L 96 03/22/17 17:00 73 29 H 91/55 L 96 03/22/17 16:26 80 34 H 96 Intake/Output (24 Hrs) 03/21/17 03/22/17 03/23/17 05:59 05:59 05:59 Intake Total 6619.8 2949 2876.4 Output Total 834 490 920 Balance 5785.8 2459 1956.4 Intake: IV Intake (ml) 1895 IV Infused (ml) 6619.8 2949 981.4 Amiodarone HCl 100 ml @ 207 600 mls/hr IV ONCE ONE Rx #:[id number] Amiodarone HCl 200 ml @ 189 392 33.333 mls/hr IV ONCE ONE Rx#:[id number] Dexmedetomidine HCl 400 60.6 mcg In Ns 100 ml @ Titrate IV CONT MALINI Rx#: [id number] Insulin Regular Human 100 50 unit In Ns 100 ml @ As Directed IV CONT MALINI Rx#: [id number] Norepinephrine Bitartrate 371 429 16 mg In Ns 250 ml @ Per Protocol IV CONT MALINI Rx# :[id number] Norepinephrine/Ns 500 ml 690 @ Titrate IV CONT MALINI Rx# :[id number] Ns 1,000 ml @ 100 mls/hr 1249 1252 IV CONT MALINI Rx#: [id number] Phenylephrine HCl 50 mg 408 318 In Ns 250 ml @ Per Protocol IV CONT MALINI Rx#: [id number] Propofol/Emulsion 100 ml 159 @ Per Protocol IV CONT MALINI Rx#:[id number] Propofol/Emulsion 50 ml @ 73 As Directed IV EDNOW ONE Rx#:[id number] Sodium Bicarbonate 150 3061 731 meq In D5w 1,000 ml @ 50 mls/hr IV CONT MALINI Rx#: [id number] Vasopressin/Dextrose 250 606 63 ml @ 24 mls/hr IV CONT MALINI Rx#:[id number] Vecuronium [place] 50 mg 23.8 26 In D5w 50 ml @ As Directed IV CONT MALINI Rx#: [id number] fentaNYL/NACL 100 ml @ 63 29 99.8 Per Protocol IV CONT MALINI Rx#:[id number] Output: Urine (ml) 609 490 810 Catheter 609 490 810 OG Drainage (ml) 225 110 Oral 225 110 Other: Weight 105 kg Result Diagrams: 03/22/17 05:10 03/22/17 17:30 Cardiac Labs: Cardiac Lab Results (72 Hrs) 03/22/17 03/20/17 03/20/17 09:55 12:05 10:25 CK-MB (CK-2) Fraction 10.60 H Troponin I 0.031 0.146 H 0.158 H 03/20/17 03/19/17 02:00 23:25 CK-MB (CK-2) Fraction 11.10 H 8.60 H Troponin I 0.256 H 0.185 H - Physical Exam Constitutional: other (intubated but otherwise healthy appearing male) Eyes: anicteric sclera Ears, Nose, Mouth, Throat: moist mucous membranes Cardiovascular: regular rate and rhythm, no murmurs, no gallops Respiratory: other (coarse breath sounds with moshe lateral rales) Gastrointestinal: normoactive bowel sounds, no masses Neurologic: other (intubaed and sedated) ICD10 Worksheet Patient Problems: Problems Problem Status Onset Biventricular heart failure Acute Cardiac arrest Acute Hepatitis C Acute Liver transplant recipient Acute
[2017-03-23] MEDS: DEXMEDETOMIDINE HCL 400 MCG in NS 100 ML IV SCH ×2 (00:52→05:47)
[2017-03-23 01:35] LABS: POTASSIUM 3.9 mEq/L (3.5-5.2)
[2017-03-23] MEDS ORDERED: POTASSIUM Cl (KCl) 50 ML IV ONE ×3 (01:57→20:23)
[2017-03-23] MEDS: NOREPINEPHRINE BITARTRATE 16 MG in NS 250 ML IV SCH (02:38)
[2017-03-23] MEDS: TACROLIMUS 1 MG CAP TUBE SCH ×2 (04:04→17:33)
[2017-03-23 05:13] LABS: BASE EXCESS 3.2 mEq/L (-2.5-2.5); BICARBONATE 27 mEq/L (22-26); IONIZED CALCIUM 1.06 MMOL/L (1.12-1.30); MEASURED OXYGEN SATURATION 93 % (92-95); PCO2 40 mmHg (34-38); PO2 69 mmHg (65-75); TCO2 28 mEq/L (23-27)
[2017-03-23 05:14] LABS: END TIDAL CO2 47; O2 CONCENTRATIION 50 % (0-100); P/F RATIO 138 RATIO
[2017-03-23 05:16] LABS: % IMMATURE GRANULYOCYTES 0.3 % (0.0-1.1); ABSOLUTE IMMATURE GRANULOCYTES 0.04 10^3/uL (0.00-0.10); ADD DIFF? NO; ADD MORPH? NO; ADD SCAN? NO; ATYPICAL LYMPHOCYTE FLAG 0 (0-99); FRAGMENT RBC FLAG 0 (0-99); HEMATOCRIT 35.8 % (40.0-51.0); HEMOGLOBIN 12.1 g/dL (13.7-17.5); LEFT SHIFT FLG 40 (0-99); LIPEMIA HEMOLYSIS FLAG 90 (0-99); MEAN CELL HEMOGLOBIN 31.1 pg (27.9-34.1); MEAN CELL HEMOGLOBIN CONCENTR. 33.8 g/dL (32.4-36.7); PLATELET CLUMPS FLAG 0 (0-99); PLATELET COUNT 51 10^3/uL (150-400); RED BLOOD CELL COUNT 3.89 10^6/uL (4.40-6.38); RED CELL DISTRIBUTION WIDTH 14.4 % (11.5-15.2)
[2017-03-23 05:23] LABS: INR 1.18 (0.83-1.16)
[2017-03-23 05:24] LABS: APTT 31.7 SEC (23.0-38.0)
[2017-03-23 05:27] LABS: ALANINE AMINOTRANSFERASE 39 IU/L (21-72); ALBUMIN 2.4 g/dL (3.5-5.0); ALKALINE PHOSPHATASE 79 IU/L (38-126); ANION GAP 7 mEq/L (8-16); ASPARTATE AMINOTRANSFERASE 54 IU/L (17-59); BILIRUBIN,TOTAL 2.4 mg/dL (0.1-1.4); BILIRUBIN-CONJUGATED 0.8 mg/dL (0.0-0.5); BILIRUBIN-UNCONJUGATED 1.6 mg/dL (0.0-1.1); CARBON DIOXIDE 29 mEq/l (22-31); CHLORIDE 102 mEq/L (97-110); CREATININE 1.3 mg/dL (0.7-1.3); GLOMERULAR FILTRATION RATE > 60; GLUCOSE 100 mg/dL (70-100); POTASSIUM 3.8 mEq/L (3.5-5.2); SODIUM 138 mEq/L (134-144); TOTAL PROTEIN 4.9 g/dL (6.3-8.2)
[2017-03-23] MEDS ORDERED: CALCIUM GLUCONATE 50 ML IV ONE (07:01)
[2017-03-23] MEDS: CHLORHEXIDINE GLUCONATE 15 ML UDL PO SCH ×2 (07:54→20:22)
[2017-03-23] MEDS: AMIODARONE HCL 200 MG TAB PO SCH (08:51)
[2017-03-23] MEDS: ERTAPENEM 1 GM in NS 100 ML IV SCH (08:51)
[2017-03-23] MEDS: PANTOPRAZOLE SODIUM 40 MG in NS 100 ML IV SCH ×2 (08:51→20:22)
[2017-03-23] MEDS: ENOXAPARIN 40 MG/0.4 ML SYR SC SCH (10:23)
--- NOTE | 2017-03-23 10:56 | HOSPPROG ---
Hospitalist Progress Note Assessment/Plan: 41 yo M w complex history including nonischemic cardiomyopathy here w cardiac arrest, s/p HACA cardiac arrest: Out of hospital V fib arrest, presumed arrhythmogenic as opposed to ischemic given known NICM. Previous EF 30-35%, was 10-15% on post- arrest echo trop rel flat S/P HACA, following commands limited echo after extubation to re-eval LV function discussed with pulmonology NICM: pt likely had cardiotoxicity from chemo during tx for Pratt's sarcoma as a child repeat echo as above Acute hypoxemic respiratory failure secondary to cardiac arrest and acute systolic HF - s/p Lasix yesterday, diuresed 2.6 liters overnight likely to extubate today cont prn lasix hypotension: off levophed VT: seen on monitor (interp by me) cont amiodarone liver transplant: H/O Hep C. continue tacrolimus tacrolimus level sent today lft's at baseline neuro: as above proph: LMWH acidosis: metabolic improving, dc bicarb code: DNR critical Subjective: Pt resting comfortably. He reportedly follows commands, but is quite tired today, not following commands for me. No fevers. Objective: Vital Signs Temp Pulse Resp BP Pulse Ox 36.9 C 78 34 H 97/54 L 96 03/23/17 04:00 03/23/17 10:00 03/23/17 10:00 03/23/17 10:00 03/23/17 10:00 Microbiology 03/20/17 11:00 Gram Stain - Final Lung Right Middle Lobe - Bronchial Washings Bronchial Washings Culture - Final Laboratory Results 03/23/17 05:00 03/23/17 05:19 03/22/17 03/23/17 03/24/17 05:59 05:59 05:59 Intake Total 2949 3469.4 Output Total 490 3360 Balance 2459 109.4 PT 15.0 SEC (12.0-15.0) 03/23/17 06:00 INR 1.18 (0.83-1.16) H 03/23/17 06:00 - Physical Exam Constitutional: no apparent distress Eyes: PERRL Ears, Nose, Mouth, Throat: moist mucous membranes Cardiovascular: regular rate and rhythym Respiratory: no respiratory distress Gastrointestinal: normoactive bowel sounds, soft, non-tender abdomen Skin: warm ICD10 Worksheet Patient Problems: Problems Problem Status Onset Biventricular heart failure Acute Cardiac arrest Acute Hepatitis C Acute Liver transplant recipient Acute
[2017-03-23] MEDS ORDERED: FUROSEMIDE 40 MG/4 ML VIAL IVP ONE ×2 (12:39→22:00)
[2017-03-23] MEDS ORDERED: ACETYLCYSTEINE 20% IH/PO 30 ML VIAL ONE (13:38)
[2017-03-23] MEDS ORDERED: IPRATROPIUM/ALBUTEROL 3 ML DEYVIAL ONE (13:39)
[2017-03-23] MEDS ORDERED: LEVALBUTEROL 0.63 MG/3 ML DEYVIAL ONE (13:41)
[2017-03-23] MEDS: LEVALBUTEROL 1.25 MG/3 ML DEYVIAL IH SCH ×2 (13:45→23:46)
[2017-03-23] MEDS: ACETYLCYSTEINE 10% 30 ML VIAL IH SCH ×2 (13:45→23:46)
--- NOTE | 2017-03-23 14:35 | PDINTPN ---
Shredder Picker Progress Note Assessment/Plan: Assessment: * Status post out of hospital VFib cardiac arrest 03/19. Rhythm stable on amiodarone. Blood pressures improved off Precedex and off the ventilator. * HACA-completed protocol. Re-warmed, doing well overall. Mental status appears to be intact. * Acute hypoxemic respiratory failure-secondary to aspiration/arrest. On SIMV with oxygen requirements still of 50%. Has persistent bilateral infiltrates, but improving. Extubated today. * Aspiration pneumonitis-continue Invanz * Hypotension: Blood pressures remain borderline. Weaning as tolerated to keep MAP > 65. * Cardiomyopathy: Ejection fraction 10-15% 03/20. Still remains volume overloaded. 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 * Thrombocytopenia: In part chronic. Follow. * Metabolic acidosis-improved, off bicarb drip * Prognosis-neuro status appears to be intact. Will be able to evaluate this much better over the next several days if he stays off the ventilator. * Prophylactic anticoagulation: On Lovenox. * GI prophylaxis: On pantoprazole * Nutrition: None currently. Will need speech therapy evaluation for swallow once he is more awake. At this time he will need an NG tube for oral medications and initiation of nutrition. Plan: Continue high-flow oxygen post extubation, BiPAP if needed, re- intubation if needed. Repeat Lasix. Add bronchodilator therapy and Mucomyst. Consider dobutamine: Will discuss with Cardiology. Follow chest x-ray and laboratory. Follow neuro status, with more thorough evaluation off ventilator over the next several days. Speech therapy evaluation for swallow.. Continue to hold neurologic consultation for now. Continue antibiotics. Continue amiodarone. Continue supportive care otherwise. 50 hour of critical care time was spent with the patient. Discussed issues with the patient's sister who is an ICU nurse, the hospitalist, RT, nursing, and the ICU multi disciplinary team. Subjective: Remains lethargic, but arousable. Appropriately responsive to simple commands and questions. Mental status appears to be intact. Precedex discontinued earlier and patient allowed to wake up, then extubated. Post extubation status okay, but somewhat marginal. Objective: Vital Signs Temp Pulse Resp BP Pulse Ox 36.9 C 83 38 H 111/51 L 92 03/23/17 04:00 03/23/17 13:45 03/23/17 13:45 03/23/17 12:00 03/23/17 13:45 Microbiology 03/20/17 11:00 Mycobacterial Smear (ROBY) - Final Lung Bilateral - Bronchial Washings 03/20/17 11:00 Gram Stain - Final Lung Right Middle Lobe - Bronchial Washings Bronchial Washings Culture - Final Laboratory Results 03/23/17 05:00 03/23/17 05:19 03/22/17 03/23/17 03/24/17 05:59 05:59 05:59 Intake Total 2949 3469.4 Output Total 490 3360 Balance 2459 109.4 PT 15.0 SEC (12.0-15.0) 03/23/17 06:00 INR 1.18 (0.83-1.16) H 03/23/17 06:00 Laboratory Tests 03/22/17 03/23/17 03/23/17 11:55 05:00 05:00 PT INR APTT pCO2 40 H pO2 69 ABG pH 7.44 O2 Concentration % 50 CPAP YES Calcium Ionized Calcium 1.06 L Phosphorus Magnesium Total Bilirubin AST ALT Albumin Tacrolimus Pending 03/23/17 03/23/17 05:19 06:00 PT 15.0 INR 1.18 H APTT 31.7 pCO2 pO2 ABG pH O2 Concentration % CPAP Calcium 7.0 L Ionized Calcium Phosphorus 2.7 Magnesium 2.0 Total Bilirubin 2.4 H AST 54 ALT 39 Albumin 2.4 L Tacrolimus CXR: Some improvement in bibasilar infiltrates, atelectasis, effusions. Lines and tubes in good position. Physical Exam - Physical Exam General Appearance: no apparent distress EENT: PERRL/EOMI, ET tube, other (OG) Neck: normal inspection (Positive JVD. CVP approximately 9) Respiratory: lungs clear (Anteriorly, less coarse), decreased breath sounds (At both bases, some rales), rales, No rhonchi, No wheezing Cardiac/Chest: regular rate, rhythm, gallop, systolic murmur Abdomen: non-tender, soft, No normal bowel sounds (Decreased, present) Male Genitalia: other (Stein catheter in place. Improved urine output with Lasix.) Skin: normal color, warm/dry Extremities: pedal edema, swelling Neuro/Psych: no motor/sensory deficits (Moves all extremities), No cognition abnormalities (Remains hard to assess but appears intact) ICD10 Worksheet Patient Problems: Problems Problem Status Onset Biventricular heart failure Acute Cardiac arrest Acute Hepatitis C Acute Liver transplant recipient Acute
[2017-03-23] MEDS: DOBUTamine/DEXTROSE 250 ML IV SCH (15:32)
[2017-03-23 16:17] LABS: POTASSIUM 3.5 mEq/L (3.5-5.2)
[2017-03-23] MEDS: POTASSIUM Cl (KCl) 50 ML IV SCH ×3 (16:50→18:20)
[2017-03-23] MEDS: LORazepam 2 MG/ML INJ IVP PRN ×2 (18:15→23:34)
[2017-03-23 19:40] LABS: BASE EXCESS 3.9 mEq/L (-2.5-2.5); BICARBONATE 28 mEq/L (22-26); BIPAP YES; MEASURED OXYGEN SATURATION 93 % (92-95); O2 CONCENTRATIION 45 % (0-100); P/F RATIO 153 RATIO; PCO2 39 mmHg (34-38); PO2 69 mmHg (65-75); TCO2 29 mEq/L (23-27)
[2017-03-23 20:20] LABS: MAGNESIUM 1.9 mg/dL (1.6-2.3); POTASSIUM 3.7 mEq/L (3.5-5.2)
[2017-03-23] MEDS ORDERED: MAGNESIUM SULF 1 GM/DEXTROSE 100 ML IV ONE (20:24)
--- NOTE | 2017-03-23 23:11 | PDCARPN ---
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 Has a history of Pratt sarcoma, liver failure with orthotopic transplantation in 2004, subsequent hepatitis C treated with Harvoni. Long-standing history of nonischemic cardiomyopathy and left bundle branch block. Best LVEF over the past several years was reported as 30-35%; had been on carvedilol and JACEK-I/ARB in the past. However, because of stability with no significant CHF, these medicines were DC' d. At the time of admission his only cardiac medication was PRN furosemide 20 mg for noticeable edema. Has had cardiac catheterization in the past which demonstrated angiographically normal coronary arteries. Sudden Cardiac - survived [id number] cardiac arrest with initial field rhythm of ventricular fibrillation; NSVT early in hospital course (none since 03/20) . * Maintaining normal sinus rhythm on amiodarone. Nonischemic Cardiomyopathy- long-standing with LVEF historically 30-35%; echocardiogram early in his hospital course demonstrated LVEF 10-15% post arrest. * Will plan on limited echo in the next few days for reassessment of LVEF. Acute Systolic CHF- bilateral pleural effusions, air space disease, and generalized edema consistent with a component of volume overload. * IV furosemide 40 mg last pm and again today. Hypotension- off of IV pressor agents. Extubated earlier today. Eventually will need institution of a standard CHF regimen to include beta luther,JACEK-I/ARB, loop diuretic, and aldosterone receptor antagonist. Depending on neurologic recovery, will likely need ICD implantation for secondary prevention of sudden cardiac . 03/23/17 23:04 Subjective: Extubated earlier today but remains somnolent. Reviewed/Discussed With: family, hospitalist Objective: Vital Signs (8 Hrs) Temp Pulse Resp BP Pulse Ox 03/23/17 22:00 90 31 H 155/60 H 95 03/23/17 21:00 103 H 38 H 136/64 H 98 03/23/17 20:00 38.2 C 104 H 35 H 131/61 H 98 03/23/17 19:00 38.2 C 93 31 H 146/71 H 100 03/23/17 18:00 38.1 C 93 39 H 145/59 H 99 03/23/17 17:36 91 L 03/23/17 17:24 34 H 93 03/23/17 15:30 38 C 96 33 H 138/59 H 91 L Intake/Output (24 Hrs) 03/22/17 03/23/17 03/24/17 05:59 05:59 05:59 Intake Total 2949 3469.4 484.7 Output Total 490 3360 890 Balance 2459 109.4 -405.3 Intake: IV Intake (ml) 2055 462 IV Infused (ml) 2949 1314.4 22.7 Amiodarone HCl 200 ml @ 392 33.333 mls/hr IV ONCE ONE Rx#:[id number] DOBUTamine/DEXTROSE 250 22.7 ml @ Titrate IV CONT MALINI Rx#:[id number] Dexmedetomidine HCl 400 271.6 mcg In Ns 100 ml @ Titrate IV CONT MALINI Rx#: [id number] Norepinephrine Bitartrate 371 516 16 mg In Ns 250 ml @ Per Protocol IV CONT MALINI Rx# :[id number] Ns 1,000 ml @ 100 mls/hr 1252 IV CONT MALINI Rx#: [id number] Phenylephrine HCl 50 mg 318 In Ns 250 ml @ Per Protocol IV CONT MALINI Rx#: [id number] Propofol/Emulsion 100 ml 159 @ Per Protocol IV CONT MALINI Rx#:[id number] Sodium Bicarbonate 150 731 meq In D5w 1,000 ml @ 50 mls/hr IV CONT MALINI Rx#: [id number] Vasopressin/Dextrose 250 63 ml @ 24 mls/hr IV CONT MALINI Rx#:[id number] Vecuronium [place] 50 mg 26 In D5w 50 ml @ As Directed IV CONT MALINI Rx#: [id number] fentaNYL/NACL 100 ml @ 29 134.8 Per Protocol IV CONT MALINI Rx#:[id number] Tube Flush (ml) 100 Output: Urine (ml) 490 3250 890 Catheter 490 3250 890 OG Tube Output (ml) 110 Oral 110 Other: Weight 97.8 kg Number of Stools Bedpan 1 Catheter 1 Result Diagrams: 03/23/17 05:00 03/23/17 19:30 Cardiac Labs: Cardiac Lab Results (72 Hrs) 03/22/17 09:55 Troponin I 0.031 - Physical Exam Constitutional: no apparent distress Eyes: anicteric sclera Ears, Nose, Mouth, Throat: moist mucous membranes Cardiovascular: regular rate and rhythm, no murmurs, no rubs, no gallops Respiratory: clear to auscultate bilat (anteriorly) Gastrointestinal: normoactive bowel sounds, no masses Skin: no rashes, other (generalized edema) Neurologic: other (somnolent; family reports following commands earlier today) Psychiatric: not anxious ICD10 Worksheet Patient Problems: Problems Problem Status Onset Biventricular heart failure Acute Cardiac arrest Acute Hepatitis C Acute Liver transplant recipient Acute
[2017-03-24 00:37] LABS: POTASSIUM 3.4 mEq/L (3.5-5.2)
[2017-03-24] MEDS: POTASSIUM Cl (KCl) 50 ML IV SCH ×9 (01:00→22:28)
[2017-03-24] MEDS: fentaNYL 100 MCG/2 ML INJ IVP PRN ×4 (01:26→06:57)
[2017-03-24] MEDS ORDERED: ETOMIDATE 40 MG/20 ML INJ IV ONE (01:30)
[2017-03-24] MEDS ORDERED: MIDAZOLAM 2 MG/2 ML VIAL IVP ONE (01:30)
[2017-03-24 02:19] LABS: O2 CONCENTRATIION 100 % (0-100); PATIENT RATE 27; PRESSURE SUPPORT 7; SIMV YES
[2017-03-24 02:20] LABS: BASE EXCESS 3.9 mEq/L (-2.5-2.5); BICARBONATE 29 mEq/L (22-26); MEASURED OXYGEN SATURATION 99 % (92-95); PCO2 49 mmHg (34-38); PIP 34; TCO2 30 mEq/L (23-27)
[2017-03-24 02:22] LABS: P/F RATIO 204 RATIO; PO2 204 mmHg (65-75)
[2017-03-24] MEDS: DEXMEDETOMIDINE HCL 400 MCG in NS 100 ML IV SCH ×3 (04:14→20:25)
[2017-03-24] MEDS: TACROLIMUS 1 MG CAP TUBE SCH ×2 (04:14→16:08)
[2017-03-24] MEDS: ACETYLCYSTEINE 10% 30 ML VIAL IH SCH ×4 (05:16→23:46)
[2017-03-24] MEDS: LEVALBUTEROL 1.25 MG/3 ML DEYVIAL IH SCH ×4 (05:16→23:40)
[2017-03-24 05:25] LABS: BASE EXCESS 4.9 mEq/L (-2.5-2.5); BICARBONATE 29 mEq/L (22-26); IONIZED CALCIUM 1.11 MMOL/L (1.12-1.30); MEASURED OXYGEN SATURATION 98 % (92-95); PCO2 47 mmHg (34-38); PO2 125 mmHg (65-75); TCO2 31 mEq/L (23-27)
[2017-03-24 05:27] LABS: END TIDAL CO2 40; O2 CONCENTRATIION 60 % (0-100); P/F RATIO 208 RATIO
[2017-03-24 05:29] LABS: % IMMATURE GRANULYOCYTES 0.3 % (0.0-1.1); ABSOLUTE IMMATURE GRANULOCYTES 0.02 10^3/uL (0.00-0.10); ADD DIFF? NO; ADD MORPH? NO; ADD SCAN? NO; ATYPICAL LYMPHOCYTE FLAG 0 (0-99); FRAGMENT RBC FLAG 0 (0-99); HEMATOCRIT 32.5 % (40.0-51.0); HEMOGLOBIN 10.7 g/dL (13.7-17.5); LEFT SHIFT FLG 10 (0-99); LIPEMIA HEMOLYSIS FLAG 80 (0-99); MEAN CELL HEMOGLOBIN 30.3 pg (27.9-34.1); MEAN CELL HEMOGLOBIN CONCENTR. 32.9 g/dL (32.4-36.7); MEAN CELL VOLUME 92.1 fL (81.5-99.8); MEAN PLATELET VOLUME 9.6 fL (8.7-11.7); PLATELET CLUMPS FLAG 0 (0-99); RED BLOOD CELL COUNT 3.53 10^6/uL (4.40-6.38); RED CELL DISTRIBUTION WIDTH 14.2 % (11.5-15.2)
[2017-03-24 05:38] LABS: PLATELET COUNT 39 10^3/uL (150-400)
[2017-03-24 05:45] LABS: ALANINE AMINOTRANSFERASE 35 IU/L (21-72); ALBUMIN 2.5 g/dL (3.5-5.0); ALKALINE PHOSPHATASE 73 IU/L (38-126); ANION GAP 8 mEq/L (8-16); ASPARTATE AMINOTRANSFERASE 55 IU/L (17-59); BILIRUBIN,TOTAL 1.7 mg/dL (0.1-1.4); CALCIUM 7.6 mg/dL (8.5-10.4); CARBON DIOXIDE 30 mEq/l (22-31); CHLORIDE 103 mEq/L (97-110); CREATININE 1.3 mg/dL (0.7-1.3); GLOMERULAR FILTRATION RATE > 60; GLUCOSE 113 mg/dL (70-100); MAGNESIUM 2.2 mg/dL (1.6-2.3); SODIUM 141 mEq/L (134-144); TOTAL PROTEIN 4.9 g/dL (6.3-8.2)
[2017-03-24 05:54] LABS: PLATELET ESTIMATE DECREASED (ADEQ)
[2017-03-24] MEDS ORDERED: CALCIUM GLUCONATE 50 ML IV ONE (06:13)
[2017-03-24] MEDS: ENOXAPARIN 40 MG/0.4 ML SYR SC SCH (07:05)
[2017-03-24] MEDS: CHLORHEXIDINE GLUCONATE 15 ML UDL PO SCH ×2 (07:49→20:25)
--- NOTE | 2017-03-24 07:50 | GPN ---
[f rep st] PROCEDURE NOTE DATE OF PROCEDURE: 03/24/2017 PROCEDURE: Emergent intubation with conscious sedation. INDICATION: Patient is post arrest who has had chronic respiratory failure and attempted BiPAP toda y as well as diuretics and continues to struggle with substantial tachypnea and marginal vital signs . Informed consent was waved due to the emergent nature of the procedure although the patient's sister was at the bedside and agreed with the procedure. DESCRIPTION OF PROCEDURE: Conscious sedation was achieved using a total of 1 mg of IV Versed and 40 mg of IV etomidate. Patient tolerated these well without complications. An 8.0 endotracheal tube was advanced using direct laryngoscopy through normal appearing vocal cords . There was a fair amount of mucus plugs that required suctioning, but there was excellent visualiz ation. The tube was placed at 24 cm which was his previous placement. There were equal breath soun ds bilaterally. No GI breath sounds. There was appropriate color change by capnography. His oxyge n saturation never dipped below 93%, and there was tube condensation. A chest x-ray is pending at t his time. There were no obvious complications. /[id number]/MODL
[2017-03-24] MEDS ORDERED: FAMOTIDINE 20 MG/NACL 50 ML IV SCH (09:00)
[2017-03-24] MEDS: fentaNYL/NACL 100 ML IV SCH (09:11)
[2017-03-24] MEDS: AMIODARONE HCL 200 MG TAB PO SCH (09:11)
[2017-03-24] MEDS: ERTAPENEM 1 GM in NS 100 ML IV SCH (09:12)
[2017-03-24] MEDS: PANTOPRAZOLE SODIUM 40 MG in NS 100 ML IV SCH ×2 (09:12→22:34)
--- NOTE | 2017-03-24 09:38 | PDINTPN ---
Funeral Greeter Progress Note Assessment/Plan: Assessment: * Status post out of hospital VFib cardiac arrest 03/19. Rhythm stable on amiodarone, but did have some short runs of VT last night prior to re- intubation on 2.5 of dobutamine. Blood pressures improved. * HACA-completed protocol. Re-warmed, doing well overall. Mental status appears to be intact, but mild diffuse anoxic insult cannot be excluded as he has remained quite somnolent post extubation despite sedative medications being off. Neurologic evaluation on hold currently is he is back on ventilator and sedated. * Acute hypoxemic respiratory failure-secondary to aspiration/arrest initially. Reintubated early this morning after being extubated yesterday. Was on BiPAP. He did have some secretions, and pneumonitis from aspiration, volume overload/congestive heart failure all appear to be involved. I cannot rule out a component of ARDS but this seems to be less likely.. Bronchoscopy with deep suction not done. * Aspiration pneumonitis-continue Invanz. Will repeat bronch today, obtain deep cultures * Hypotension: Resolved, blood pressure is fine now off Levophed, even with Precedex and fentanyl back on board.. * Cardiomyopathy: Ejection fraction 10-15% 03/20. Still remains volume overloaded. Will repeat echo today, discuss with Cardiology. * History of liver transplantation, Immunosuppression. On Prograf. * Chronic Hepatitis-C. 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 * Thrombocytopenia: 39 today. In part chronic. Follow. No history of HIT * Metabolic. Previous acidosis resolved. On replacement protocols. Hypocalcemic today. * Prognosis-neuro status appears to be intact. Will be able to evaluate this much better over the next several days if he stays off the ventilator. * Prophylactic anticoagulation: On Lovenox, held today secondary to low platelets. * GI prophylaxis: On pantoprazole * Nutrition: NG placed yesterday. On tube feedings. Plan: Continue supportive care, ventilatory support. Will do bronchoscopy today for assessment of secretions and mucus plugs. Will obtain deep cultures. For repeat echo today. Will discuss with Cardiology after echo results known. Continue antibiotics. If fevers persist I will repeat blood cultures. Neurologic evaluation will be put on hold as he cannot be evaluated currently. Follow lab, chest x-ray, ABG. Hold Lovenox today secondary to lower platelets. 55 minutes of critical care time was spent with the patient, not including bronchoscopy. Discussed issues with the patient's sister who is an ICU nurse, RT, nursing, and the ICU multi disciplinary team. Subjective: Reintubated last night, sedated, on the ventilator. Appears comfortable. Unresponsive at this time. Objective: Vital Signs Temp Pulse Resp BP Pulse Ox 38.5 C H 93 36 H 114/60 97 03/24/17 08:00 03/24/17 08:20 03/24/17 08:00 03/24/17 08:00 03/24/17 08:20 Microbiology 03/20/17 11:00 Mycobacterial Smear (ROBY) - Final Lung Bilateral - Bronchial Washings Laboratory Results 03/24/17 05:15 03/24/17 05:15 03/23/17 03/24/17 03/25/17 05:59 05:59 05:59 Intake Total 3469.4 1489.7 Output Total 3360 3155 Balance 109.4 -1665.3 PT 15.0 SEC (12.0-15.0) 03/23/17 06:00 INR 1.18 (0.83-1.16) H 03/23/17 06:00 Laboratory Tests 03/24/17 03/24/17 03/24/17 01:43 05:15 05:15 pCO2 47 H pO2 125 H D ABG pH 7.42 O2 Concentration % 60 Tidal Volume 600 PEEP 5 Pressure Support 7 Calcium 7.6 L Ionized Calcium 1.11 L Phosphorus 2.7 Magnesium 2.2 Total Bilirubin 1.7 H AST 55 ALT 35 NT-Pro-B Natriuret Pep 4640 H Albumin 2.5 L CXR: About the same regarding pulmonary infiltrates/atelectasis/effusions. Large heart. Lines and tubes in good position. Physical Exam - Physical Exam General Appearance: unresponsive, other (On ventilator) EENT: PERRL/EOMI, ET tube, other (NG) Neck: normal inspection (CVP 6) Respiratory: decreased breath sounds (Bilaterally. Breath sounds coarse.), rales (Somewhat lateral bases), No respiratory distress, No rhonchi, No wheezing Cardiac/Chest: regular rate, rhythm, gallop Abdomen: non-tender, soft, No normal bowel sounds Male Genitalia: other (Stein catheter in place: Improved urine output, output greater than input last) Skin: normal color, warm/dry Extremities: pedal edema, swelling (Decreased edema/anasarca) Neuro/Psych: no motor/sensory deficits (Was moving all extremities), cognition abnormalities (Cannot assess current) ICD10 Worksheet Patient Problems: Problems Problem Status Onset Cardiac arrest Acute Liver transplant recipient Acute Hepatitis C Acute Biventricular heart failure Acute
[2017-03-24] MEDS ORDERED: BENZOCAINE UNIT DOSE SPRAY HURRICAINE MM ONE (10:27)
[2017-03-24] MEDS ORDERED: LIDOCAINE 2% JELLY 5 ML TUBE TP ONE (10:27)
[2017-03-24] MEDS ORDERED: LIDOCAINE 1% 300 MG/30 ML SDV MISC ONE (10:27)
[2017-03-24] MEDS ORDERED: MIDAZOLAM 2 MG/2 ML VIAL ONE (11:05)
[2017-03-24 12:04] LABS: POTASSIUM 3.6 mEq/L (3.5-5.2)
[2017-03-24] MEDS ORDERED: ACETAMINOPHEN 325 MG TAB PO PRN (13:34)
[2017-03-24] MEDS: ACETAMINOPHEN 650 MG/20.3 ML UDCUP TUBE PRN (14:21)
--- NOTE | 2017-03-24 14:28 | HOSPPROG ---
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 Extubated 03/23/2017, re-intubated 03/24/2017 early am due respiratory distress. cardiac arrest: Out of hospital V fib arrest, presumed arrhythmogenic as opposed to ischemic given known NICM. Previous EF 30-35%, was 10-15% on post- arrest echo, repeat echo today shows EF up to 20-25% (on dobutamine) trop rel flat S/P HACA, following commands discussed with pulmonology fever: post-intubation. BCx's pending, no orgs on BAL gram stain. B/L infiltrates vs edema on CXR. On ertapenem for aspiration pna. If fevers persist, consider broadening atbx, ID consult. 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 continue tacrolimus tacrolimus level pending lft's at baseline FEN: tube feeds at 15/hr, increasing today neuro: as above proph: LMWH held today due to dropping platelets code: DNR critical Subjective: Pt intubated, sedated, still following commands. +fever to 38.5 Objective: Vital Signs Temp Pulse Resp BP Pulse Ox 38.5 C H 91 34 H 120/64 97 03/24/17 09:00 03/24/17 09:00 03/24/17 09:00 03/24/17 09:00 03/24/17 09:00 Microbiology 03/24/17 11:30 - Final Sputum, Induced/Suctioned 03/20/17 11:00 Mycobacterial Smear (ROBY) - Final Lung Bilateral - Bronchial Washings Laboratory Results 03/24/17 05:15 03/24/17 11:40 03/23/17 03/24/17 03/25/17 05:59 05:59 05:59 Intake Total 3469.4 1489.7 Output Total 3360 0075 Balance 109.4 -3165.3 PT 15.0 SEC (12.0-15.0) 03/23/17 06:00 INR 1.18 (0.83-1.16) H 03/23/17 06:00 - Physical Exam Constitutional: no apparent distress Cardiovascular: regular rate and rhythym Respiratory: no respiratory distress, inspiratory crackles Gastrointestinal: normoactive bowel sounds, soft, non-tender abdomen Skin: warm Neurologic: other (follows commands) ICD10 Worksheet Patient Problems: Problems Problem Status Onset Biventricular heart failure Acute Cardiac arrest Acute Hepatitis C Acute Liver transplant recipient Acute
[2017-03-24] MEDS ORDERED: FUROSEMIDE 40 MG/4 ML VIAL IVP ONE ×2 (14:31→20:01)
--- NOTE | 2017-03-24 16:42 | GPN ---
[f rep st] PROCEDURE NOTE DATE OF PROCEDURE: 03/24/2017 PROCEDURE: Therapeutic bronchoscopy. REASON FOR PROCEDURE: Respiratory failure, re-intubation, secretions in a patient with recent aspir ation pneumonia and congestive heart failure/cardiomyopathy. PROCEDURE NOTE: The procedure was done in the patient's room in the intensive care unit. Informed consent was obtained from the patient's family. Appropriate time-out was performed. The patient wa s on the ventilator. No additional sedating medications were required. He was on fentanyl and Prec edex. The fiberoptic bronchoscope was passed via an adapter on the end of the patient's endotracheal tube after approximately 12 mL of 1% lidocaine were placed in the patient's endotracheal tube to suppress coughing. The bronchoscope was advanced into the distal trachea and in the lower tracheobronchial tree bilaterally. There were modest secretions found bilaterally, some of which were somewhat purul ent. Minimal mucus plugging without big plugs was present. Secretions were removed with suction an d lavage. Underlying bronchial anatomy was normal with slight erythema to the bronchial mucosa. Cu ltures were sent. The patient tolerated the procedure well. There were no complications. Vital si gns and oxygen saturation on 100% oxygen on the ventilator remained normal throughout the procedure. /[id number]/MODL
--- NOTE | 2017-03-24 17:02 | ECHO ---
[id number] + + [address] : : [place] [address] : : [phone] + + Adult Echocardiographic Report + ---------+ :Name: STROUDCHAU 1858Study Date: 03/24/2017 09:54 AM : : Hospital Admission Number: [id number] Loca tion: 250: :: 1975 Gender: Male Height: 76 i n : :Age: 41 yrs Race: RANJAN ZAMBRANO Weight: 205 lb : :Reason For Study: Eval LV Fx : : BSA: 2.2 met ers2 : :History: Post V-fib arrest. Intubated : + ---------+ MMode/2D Measurements \T\ Calculations IVSd: 0.94 cm LVIDd: 5.4 cm FS: 10.5 % Ao root diam: LVPWd: 0.91 cm LVIDs: 4.9 cm EDV(Teich): 2.7 cm 142.5 ml ACS: 1.6 cm ESV(Teich): 110.2 ml EF(Teich): 22.7 % LVLd ap4: 9.1 cm SV(MOD-sp4): EDV(MOD-sp4): 47.0 ml 183.0 ml LVLs ap4: 8.9 cm ESV(MOD-sp4): 136.0 ml EF(MOD-sp4): 25.7 % Normal Measurement Values: + + :LVIDd (3.5-5.7cm) IVSd (0.6-1.1cm) LVPWd (0.6-1.1cm) Aortic Root (2.0-3.7cm)Left Atrium (1.5-4.0cm): :LV Vol(d) (76-115ml) LV Vol(s) (29-48ml) Ejec Fraction (50-65%)PV Beck (0.6- 1.2m/s) TV Beck (0.4-1.0m/s) : :MV E Beck (0.8-1.0m/s)MV A Beck (0.3-1.0m/s)LVOT Beck (0.7-1.2m/s) Asc Ao Beck ( 0.9-1.8m/s) : + + Doppler Measurements \T\ Calculations MV E max beck: Ao V2 max: LV V1 max: MR max beck: 79.5 cm/sec 143.3 cm/sec 93.3 cm/sec 386.1 cm/sec MV A max beck: Ao max P.2 mmHg LV V1 max PG: MR max P.8 cm/sec 3.5 mmHg 59.6 mmHg MV E/A: 1.4 PA V2 max: PI end-d beck: TR max beck: 152.0 cm/sec 146.6 cm/sec 315.2 cm/sec PA max P.2 mmHg TR max P.7 mmHg RAP systole: 5.0 mmHg RVSP(TR): 44.7 mmHg Left Ventricle The left ventricle is normal in size. There is normal left ventricular wall thickness. There is left venticular dysschrony. The estimated EF with M- mode, Simpsons volume in 4C and 2C the estimate is 25%. The left ventricular ejection fraction is calculated at 22.7 %. There is moderate to severe global hypokinesis of the left ventricle. Right Ventricle The right ventricle is normal in size and function. Atria The left atrial size is normal. There is a catheter in the right atrium. Mitral Valve The mitral valve is normal in structure and function. There is trace mitral regurgitation. Tricuspid Valve The tricuspid valve is normal in structure and function. No tricuspid regurgitation. Aortic Valve The aortic valve is normal in structure and function. There is no aortic stenosis. There is no aortic insufficiency. Pulmonic Valve The pulmonic valve is normal in structure and function. There is no pulmonic valvular regurgitation. Great Vessels The aortic root is normal size. Pericardium/Pleural There is no pericardial effusion. Conclusion A complete two-dimensional transthoracic echocardiogram was performed (2D, M-mode, Doppler and color flow Doppler). (1) Left ventricular systolic ejection fraction was moderately to severely reduced (20-30%) - moderate to severe global hypokinesis - there is severe septal dyskinesis, which impairs the interpretation of the LVEF. Likely about 25% (2) No left ventricular hypertrophy (3) Diastolic function was not easily assessed in this study (4) Grossly normal right ventricular size with mild reduction in systolic function (5) Normal atrial dimensions - catheter is noted to the right atrium (6) Physiologic mitral regurgitation (7) Trileaflet aortic valve wtihout appreciable insufficiency or sclerosis/stenosis (8) Grossly normal tricuspid valve (9) Poor visualization of the pulmonic valve (10) In comparison to prior echocardiogram from 03-20-17, there appears to be some improvement in LVEF from 15% to current 25%. Patient was on pressors for this study There is left venticular dysschrony. The estimated EF with M-mode, Simpsons volume in 4C and 2C the estimate is 25% The right ventricle is normal in size and function. The left atrial size is normal. Final Reading Physician: Negra Quesada signed on 03/24/2017 05:02 PM Ordering Physician: ASMITA STROUD Performed By: Cheng Dash, LOVECS
--- NOTE | 2017-03-24 17:37 | PDCARPN ---
Cardiology Progress Note Assessment/Plan: 41-year-old male who presented with an xan-gt-rbjqxrjc cardiac arrest on March 19 ; initial rhythm in the field was ventricular fibrillation; defibrillation resulted in voodoo of sinus rhythm without adequate perfusion (i.e.- PEA); return of spontaneous circulation with CPR and IV epinephrine. Has a history of Pratt sarcoma, liver failure with orthotopic transplantation in 2004, subsequent hepatitis C treated with Harvoni. Long-standing history of nonischemic cardiomyopathy and left bundle branch block. Best LVEF over the past several years was reported as 30-35%; had been on carvedilol and JACEK-I/ARB in the past. However, because of stability with no significant CHF, these medicines were DC'd. At the time of admission his only cardiac medication was PRN furosemide 20 mg for noticeable edema. Has had cardiac catheterization in the past which demonstrated angiographically normal coronary arteries. Sudden Cardiac - survived [id number]-[id number] cardiac arrest with initial field rhythm of ventricular fibrillation; NSVT early in hospital course (none since 03/20) . * Maintaining normal sinus rhythm on amiodarone. Nonischemic Cardiomyopathy- long-standing with LVEF historically 30-35%; initial echocardiogram this hospital stay demonstrated an EF of 10-15%; repeat study today with an EF of 20-25%. Acute Systolic CHF- bilateral pleural effusions, air space disease, and generalized edema consistent with a component of volume overload. * Reintubated overnight. * Receiving IV furosemide; fluid balance in last 24 Hr was negative by over 3 liters. * Low dose dobutamine added yesterday for inotropic support and to increase renal blood flow to facilitate diuresis. Hypotension- off of pure pressor agents. Eventually will need institution of a standard CHF regimen to include beta luther,JACEK-I/ARB, loop diuretic, and aldosterone receptor antagonist. Depending on neurologic recovery, will likely need ICD implantation for secondary prevention of sudden cardiac ; given his baseline LBBB, he should be a candidate for cardiac resynchronization with a biventricular pacer/ ICD. 03/24/17 17:37 Subjective: Intubated and sedated. Reviewed/Discussed With: family Objective: Vital Signs (8 Hrs) Temp Pulse Resp BP Pulse Ox 03/24/17 16:10 89 96 03/24/17 16:00 38.4 C H 90 28 H 139/75 H 96 03/24/17 15:00 38.5 C H 93 33 H 112/56 L 95 03/24/17 14:00 94 37 H 146/73 H 97 03/24/17 13:00 94 31 H 146/73 H 97 03/24/17 12:00 38.8 C H 102 H 35 H 135/71 H 95 03/24/17 11:00 38.6 C H 87 35 H 155/82 H 95 03/24/17 10:00 38.5 C H 90 27 H 130/68 H 98 Intake/Output (24 Hrs) 03/23/17 03/24/17 03/25/17 05:59 05:59 05:59 Intake Total 3469.4 1489.7 Output Total 3360 4655 Balance 109.4 -3165.3 Intake: IV Intake (ml) 2055 1000 IV Infused (ml) 1314.4 190.7 Amiodarone HCl 200 ml @ 392 33.333 mls/hr IV ONCE ONE Rx#:[id number] DOBUTamine/DEXTROSE 250 99.7 ml @ Titrate IV CONT [facility] Rx#:[id number] Dexmedetomidine HCl 400 271.6 88 mcg In Ns 100 ml @ Titrate IV CONT [facility] Rx#: [id number] Norepinephrine Bitartrate 516 3 16 mg In Ns 250 ml @ Per Protocol IV CONT [facility] Rx# :[id number] fentaNYL/NACL 100 ml @ 134.8 Per Protocol IV CONT [facility] Rx#:[id number] Tube Feeding (ml) 149 Tube Flush (ml) 100 150 Output: Urine (ml) 3250 4655 Catheter 3250 4655 OG Tube Output (ml) 110 Oral 110 Other: Weight 97.8 kg 93.4 kg Number of Stools Bedpan 1 Catheter 1 1 Result Diagrams: 03/24/17 05:15 03/24/17 11:40 Cardiac Labs: Cardiac Lab Results (72 Hrs) 03/22/17 09:55 Troponin I 0.031 - Physical Exam Constitutional: other (Intubated and sedated.) Eyes: anicteric sclera Ears, Nose, Mouth, Throat: moist mucous membranes Cardiovascular: regular rate and rhythm, no murmurs, no rubs, no gallops Respiratory: no crackles, other (coarse breath sounds) Gastrointestinal: normoactive bowel sounds, no masses Skin: no rashes, other (edema significantly improved) Neurologic: other (intubated and sedated) ICD10 Worksheet Patient Problems: Problems Problem Status Onset Biventricular heart failure Acute Cardiac arrest Acute Hepatitis C Acute Liver transplant recipient Acute
[2017-03-24 19:32] LABS: POTASSIUM 3.5 mEq/L (3.5-5.2)
[2017-03-24] MEDS ORDERED: FUROSEMIDE 40 MG/4 ML VIAL ONE (22:24)
[2017-03-25 01:28] LABS: POTASSIUM 3.7 mEq/L (3.5-5.2)
[2017-03-25] MEDS ORDERED: POTASSIUM Cl (KCl) 50 ML IV ONE (01:38)
[2017-03-25] MEDS: DEXMEDETOMIDINE HCL 400 MCG in NS 100 ML IV SCH ×4 (01:58→17:24)
[2017-03-25] MEDS: LEVALBUTEROL 1.25 MG/3 ML DEYVIAL IH SCH (04:04)
[2017-03-25] MEDS: ACETYLCYSTEINE 10% 30 ML VIAL IH SCH (04:05)
[2017-03-25 05:05] LABS: BASE EXCESS 4.6 mEq/L (-2.5-2.5); BICARBONATE 28 mEq/L (22-26); IONIZED CALCIUM 1.15 MMOL/L (1.12-1.30); MEASURED OXYGEN SATURATION 96 % (92-95); PCO2 43 mmHg (34-38); PO2 86 mmHg (65-75); TCO2 30 mEq/L (23-27)
[2017-03-25 05:06] LABS: END TIDAL CO2 47; SIMV YES
[2017-03-25 05:07] LABS: PATIENT RATE 25; PRESSURE SUPPORT 7
[2017-03-25 05:09] LABS: % IMMATURE GRANULYOCYTES 0.8 % (0.0-1.1); ABSOLUTE IMMATURE GRANULOCYTES 0.03 10^3/uL (0.00-0.10); ADD DIFF? NO; ADD MORPH? NO; ADD SCAN? NO; ATYPICAL LYMPHOCYTE FLAG 40 (0-99); FRAGMENT RBC FLAG 0 (0-99); HEMATOCRIT 35.6 % (40.0-51.0); HEMOGLOBIN 11.9 g/dL (13.7-17.5); LEFT SHIFT FLG 0 (0-99); LIPEMIA HEMOLYSIS FLAG 80 (0-99); MEAN CELL HEMOGLOBIN 31.1 pg (27.9-34.1); MEAN CELL HEMOGLOBIN CONCENTR. 33.4 g/dL (32.4-36.7); MEAN PLATELET VOLUME 10.4 fL (8.7-11.7); PLATELET CLUMPS FLAG 0 (0-99); RED BLOOD CELL COUNT 3.83 10^6/uL (4.40-6.38); RED CELL DISTRIBUTION WIDTH 13.9 % (11.5-15.2)
[2017-03-25 05:20] LABS: INR 1.05 (0.83-1.16); PROTIME(PATIENT) 13.6 SEC (12.0-15.0)
[2017-03-25 05:27] LABS: PLATELET COUNT 47 10^3/uL (150-400)
[2017-03-25 05:29] LABS: ALANINE AMINOTRANSFERASE 32 IU/L (21-72); ALBUMIN 2.6 g/dL (3.5-5.0); ALKALINE PHOSPHATASE 75 IU/L (38-126); ANION GAP 10 mEq/L (8-16); ASPARTATE AMINOTRANSFERASE 49 IU/L (17-59); BILIRUBIN,TOTAL 1.7 mg/dL (0.1-1.4); CARBON DIOXIDE 28 mEq/l (22-31); CHLORIDE 104 mEq/L (97-110); CREATININE 1.1 mg/dL (0.7-1.3); GLOMERULAR FILTRATION RATE > 60; GLUCOSE 120 mg/dL (70-100); MAGNESIUM 1.6 mg/dL (1.6-2.3); POTASSIUM 4.1 mEq/L (3.5-5.2); SODIUM 142 mEq/L (134-144); TOTAL PROTEIN 5.2 g/dL (6.3-8.2)
[2017-03-25] MEDS: fentaNYL/NACL 100 ML IV SCH ×2 (05:32→21:37)
[2017-03-25 06:08] LABS: PLATELET ESTIMATE DECREASED (ADEQ)
[2017-03-25] MEDS ORDERED: MAGNESIUM SULF 1 GM/DEXTROSE 100 ML IV ONE (07:03)
[2017-03-25] MEDS: CHLORHEXIDINE GLUCONATE 15 ML UDL PO SCH ×2 (09:02→21:37)
[2017-03-25] MEDS: ENOXAPARIN 40 MG/0.4 ML SYR SC SCH ×2 (09:03→10:52)
[2017-03-25] MEDS: PANTOPRAZOLE SODIUM 40 MG in NS 100 ML IV SCH ×2 (09:10→21:37)
[2017-03-25] MEDS: AMIODARONE HCL 200 MG TAB TUBE SCH (09:10)
[2017-03-25] MEDS: ERTAPENEM 1 GM in NS 100 ML IV SCH (09:10)
[2017-03-25] MEDS ORDERED: FUROSEMIDE 40 MG/4 ML VIAL IVP ONE ×2 (09:28→23:00)
[2017-03-25] MEDS ORDERED: LEVALBUTEROL INHALER 200 PUFFS/15 GM MDI IH SCH (11:00)
[2017-03-25] MEDS: LEVALBUTEROL INHALER 200 PUFFS/15 GM MDI IH SCH ×4 (12:06→23:52)
[2017-03-25] MEDS: ACETAMINOPHEN 650 MG/20.3 ML UDCUP TUBE PRN (12:17)
[2017-03-25 12:41] LABS: POTASSIUM 3.6 mEq/L (3.5-5.2)
--- NOTE | 2017-03-25 14:31 | HOSPPROG ---
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 Extubated 03/23/2017, re-intubated 03/24/2017 early am due respiratory distress. cardiac arrest: Out of hospital V fib arrest, presumed arrhythmogenic as opposed to ischemic given known NICM. Previous EF 30-35%, was 10-15% on post- arrest echo, repeat echo 03/24 shows EF up to 20-25% (on dobutamine) trop rel flat S/P HACA, following commands discussed with pulmonology NICM: pt likely had cardiotoxicity from chemo during tx for Poole's sarcoma as a child cards following will need BB, josefina, spironolactone when conditioned stabilized candidate for AICD, timing per cards Acute hypoxemic respiratory failure secondary to cardiac arrest and acute systolic HF - diuresing well cont prn lasix Fever: post-reintubation. BCx's pending, MSSA on BAL gram stain which should be covered by Ertapenem. CXR personally reviewed and interpreted- improving b/ l infiltrates. On ertapenem for aspiration pna. If fevers persist, consider broadening atbx, ID consult. VT: personally reviewed telemetry cont amiodarone liver transplant: H/O Hep C secondary to transfusions during chemo tx for poole' s. continue tacrolimus tacrolimus level pending lft's at baseline FEN: tube feeds at 45 today, increasing to reach goal tonight neuro: as above proph: resume LMWH code: Full code critical Subjective: Pt remains intubated, ventilated. Family notes that he was interactive with them today. Fevers persist. Objective: Vital Signs Temp Pulse Resp BP Pulse Ox 38.6 C H 101 H 23 H 118/71 96 03/25/17 12:00 03/25/17 12:00 03/25/17 12:00 03/25/17 12:00 03/25/17 12:00 Microbiology 03/24/17 11:30 - Final Sputum, Induced/Suctioned 03/19/17 23:27 Blood Culture - Final Blood 03/19/17 23:27 Blood Culture - Final Blood Laboratory Results 03/25/17 05:00 03/25/17 12:03/24/17 03/25/17 03/26/17 05:59 05:59 05:59 Intake Total 1489.7 2080.4 Output Total 4655 4110 1650 Balance -3165.3 -2029.6 -1650 PT 13.6 SEC (12.0-15.0) 03/25/17 05:00 INR 1.05 (0.83-1.16) 03/25/17 05:00 - Physical Exam Constitutional: no apparent distress Eyes: PERRL Cardiovascular: regular rate and rhythym Respiratory: no respiratory distress, clear to auscultation Gastrointestinal: normoactive bowel sounds, soft, non-tender abdomen Skin: warm Musculoskeletal: full muscle strength Neurologic: other (follows commands) ICD10 Worksheet Patient Problems: Problems Problem Status Onset Biventricular heart failure Acute Cardiac arrest Acute Hepatitis C Acute Liver transplant recipient Acute
--- NOTE | 2017-03-25 15:03 | PDINTPN ---
Senior Bookkeeper Progress Note Assessment/Plan: Assessment: * Status post out of hospital VFib cardiac arrest 03/19. Rhythm stable on amiodarone, but has had some short runs of VT. On 2.5 of dobutamine. Blood pressures improved. * HACA-completed protocol. Re-warmed, doing well overall. Mental status appears to be intact, but mild diffuse anoxic insult cannot be excluded as he has remained somnolent post extubation despite sedative medications being off. Neurologic evaluation on hold currently is he is back on ventilator and sedated. * Acute hypoxemic respiratory failure-secondary to aspiration/arrest initially. Extubated 03/23, reintubated early 03/24. Secretions, and pneumonitis from aspiration, volume overload/congestive heart failure all appear to be involved. S/p bronchoscopy 03/24. Growing Staph aureus, sensitivities not known yet - too few organisms. Tolerating CPAP weans today. Will continue. Hopefully can extubate within the next day or to? * Aspiration pneumonitis-continue Invanz. Improving pulmonary status. * Hypotension: Resolved, blood pressure is fine now off Levophed, even with Precedex and fentanyl back on board. * Cardiomyopathy: Ejection fraction 10-15% 03/20, 25% 03/24. Still remains volume overloaded, but now diuresing well. * History of liver transplantation, Immunosuppression. On Prograf. Level somewhat high, repeat pending. Will dose 2 mg 1 per day until new level comes back. * Chronic Hepatitis-C. 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 * Thrombocytopenia: 47 today. In part chronic. Follow. No history of HIT * Metabolic. Previous acidosis resolved. On replacement protocols. Hypocalcemic today. * Prognosis-neuro status appears to be intact. Will be able to evaluate this much better over the next several days if he stays off the ventilator. * Prophylactic anticoagulation: On Lovenox. * GI prophylaxis: On pantoprazole * Nutrition: NG in place. On tube feedings. Plan: Continue supportive care, ventilatory support. Advance CPAP weans. Hopefully can extubate in the next day or two. Continue antibiotics. Will dose Vanco until MRSA status known. Neurologic evaluation will be put on hold as he cannot be evaluated currently. Follow lab, chest x-ray, ABG. 45 minutes of critical care time was spent with the patient. Discussed issues with the patient's sister who is an ICU nurse, RT, nursing, and the ICU multi disciplinary team. 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 Appears comfortable. Objective: Vital Signs Temp Pulse Resp BP Pulse Ox 38.6 C H 101 H 23 H 118/71 96 03/25/17 12:00 03/25/17 12:00 03/25/17 12:00 03/25/17 12:00 03/25/17 12:00 Microbiology 03/24/17 11:30 - Final Sputum, Induced/Suctioned 03/19/17 23:27 Blood Culture - Final Blood 03/19/17 23:27 Blood Culture - Final Blood Laboratory Results 03/25/17 05:00 03/25/17 12:08 03/24/17 03/25/17 03/26/17 05:59 05:59 05:59 Intake Total 1489.7 2080.4 Output Total 4655 4110 1650 Balance -3165.3 -2029.6 -1650 PT 13.6 SEC (12.0-15.0) 03/25/17 05:00 INR 1.05 (0.83-1.16) 03/25/17 05:00 Laboratory Tests 03/25/17 03/25/17 05:00 05:00 pCO2 43 H pO2 86 H ABG pH 7.44 ABG O2 Saturation 96 H Total O2 Concentration 40.0 Actual Respiration Rate 25 Set Respiration Rate 18 Tidal Volume 600 PEEP 5 Pressure Support 7 Calcium 8.0 L Phosphorus 3.8 D Magnesium 1.6 Total Bilirubin 1.7 H AST 49 ALT 32 NT-Pro-B Natriuret Pep 2560 H Albumin 2.6 L CXR: Improving infiltrates today. Lines and tubes in good position. Physical Exam - Physical Exam General Appearance: other (Sedated, on ventilator) EENT: PERRL/EOMI, ET tube, other (Nasogastric tube) Neck: normal inspection Respiratory: other (Improving aeration. Decreased respiratory rate. Some rales persist at bases. Few rhonchi present.) Cardiac/Chest: regular rate, rhythm (To tachycardic. Soft systolic murmur.) Abdomen: normal bowel sounds, non-tender, soft, other (Tolerating tube feeding) Male Genitalia: other (Stein catheter in place. Good urine output last several days with Lasix) Skin: normal color, warm/dry Extremities: pedal edema, swelling Neuro/Psych: no motor/sensory deficits (Moves all extremities), No cognition abnormalities (Can't assess) ICD10 Worksheet Patient Problems: Problems Problem Status Onset Biventricular heart failure Acute Cardiac arrest Acute Hepatitis C Acute Liver transplant recipient Acute
[2017-03-25] MEDS ORDERED: VANCOMYCIN 1.5 GM in D5W 250 ML IV SCH (15:30)
[2017-03-25] MEDS ORDERED: TACROLIMUS 1 MG CAP PO ONE (15:30)
[2017-03-25] MEDS: VANCOMYCIN 1.5 GM in D5W 250 ML IV SCH (16:25)
[2017-03-25] MEDS: POTASSIUM Cl (KCl) 50 ML IV SCH ×3 (18:24→18:36)
--- NOTE | 2017-03-26 00:01 | PDCARPN ---
Cardiology Progress Note Assessment/Plan: Late entry: Pt seen approximately 17:45 today 41-year-old male who presented with an uqc-az-dfyilzwn cardiac arrest on March 19 ; initial rhythm in the field was ventricular fibrillation; defibrillation resulted in pentecostalism of sinus rhythm without adequate perfusion (i.e.- PEA); return of spontaneous circulation with CPR and IV epinephrine. Has a history of Pratt sarcoma, liver failure with orthotopic transplantation in 2004, subsequent hepatitis C treated with Harvoni. Long-standing history of nonischemic cardiomyopathy and left bundle branch block. Best LVEF over the past several years was reported as 30-35%; had been on carvedilol and JACEK-I/ARB in the past. However, because of stability with no significant CHF, these medicines were DC'd. At the time of admission his only cardiac medication was PRN furosemide 20 mg for noticeable edema. Has had cardiac catheterization in the past which demonstrated angiographically normal coronary arteries. Sudden Cardiac - survived [id number]-vsmhpllp cardiac arrest with initial field rhythm of ventricular fibrillation; NSVT early in hospital course (none since 03/20) . * Maintaining normal sinus rhythm on amiodarone. Nonischemic Cardiomyopathy- long-standing with LVEF historically 30-35%; initial echocardiogram this hospital stay demonstrated an EF of 10-15%; repeat study 03/24 with an EF of 20-25%. Acute Systolic CHF- bilateral pleural effusions, air space disease, and generalized edema consistent with a component of volume overload. * Reintubated 03/23. * Receiving IV furosemide; fluid balance in last 24 Hr was negative by over 2 liters; has had net negative fluid balance of -6 liters in past 48 to 72 Hr. *CXR appearance substantially improved. * Low dose dobutamine added 03/23 for inotropic support and to increase renal blood flow to facilitate diuresis. Hypotension- off of pure pressor agents. Eventually will need institution of a standard CHF regimen to include beta luther,JACEK-I/ARB, loop diuretic, and aldosterone receptor antagonist. Depending on neurologic recovery, will likely need ICD implantation for secondary prevention of sudden cardiac ; given his baseline LBBB, he should be a candidate for cardiac resynchronization with a biventricular pacer/ ICD. 03/24/17 17:37 03/25/17 23:57 Reviewed/Discussed With: family Objective: Vital Signs (8 Hrs) Temp Pulse Resp BP Pulse Ox 03/25/17 21:00 92 23 H 136/80 H 98 03/25/17 20:00 38.3 C 96 28 H 127/67 H 97 03/25/17 18:00 91 26 H 132/70 H 99 03/25/17 17:00 38.1 C 92 24 H 121/66 H 98 03/25/17 16:25 38.3 C 91 22 H 120/64 99 Intake/Output (24 Hrs) 03/24/17 03/25/17 03/26/17 05:59 05:59 05:59 Intake Total 1489.7 2080.4 1784 Output Total 4655 4110 2750 Balance -3165.3 -2029.6 -966 Intake: IV Intake (ml) 1000 724 721 IV Infused (ml) 190.7 703.4 408 DOBUTamine/DEXTROSE 250 99.7 162 96 ml @ Titrate IV CONT [facility] Rx#:[id number] Dexmedetomidine HCl 400 88 458 247 mcg In Ns 100 ml @ Titrate IV CONT [facility] Rx#: [id number] Norepinephrine Bitartrate 3 16 mg In Ns 250 ml @ Per Protocol IV CONT [facility] Rx# :[id number] fentaNYL/NACL 100 ml @ 83.4 65 Per Protocol IV CONT [facility] Rx#:[id number] Tube Feeding (ml) 149 538 555 Tube Flush (ml) 150 115 100 Output: Urine (ml) 4655 4110 2750 Catheter 4655 4110 2750 Other: Weight 93.4 kg 90 kg Number of Stools Bedpan 1 Catheter 1 Result Diagrams: 03/25/17 05:00 03/25/17 12:08 - Physical Exam Constitutional: other (Intubated but awake and responsive.) Eyes: anicteric sclera Ears, Nose, Mouth, Throat: moist mucous membranes Cardiovascular: regular rate and rhythm, no murmurs, no rubs, no gallops Respiratory: other (Coarse breath sounds improved.) Gastrointestinal: normoactive bowel sounds, no tenderness, no masses Skin: no rashes, no edema Psychiatric: following commands ICD10 Worksheet Patient Problems: Problems Problem Status Onset Biventricular heart failure Acute Cardiac arrest Acute Hepatitis C Acute Liver transplant recipient Acute
[2017-03-26 00:39] LABS: POTASSIUM 3.9 mEq/L (3.5-5.2)
[2017-03-26] MEDS: ACETAMINOPHEN 650 MG/20.3 ML UDCUP TUBE PRN ×2 (01:07→17:26)
[2017-03-26] MEDS ORDERED: POTASSIUM Cl (KCl) 50 ML IV ONE ×3 (01:28→18:29)
[2017-03-26] MEDS: VANCOMYCIN 1.5 GM in D5W 250 ML IV SCH ×2 (03:39→16:16)
[2017-03-26] MEDS: DOBUTamine/DEXTROSE 250 ML IV SCH (04:03)
[2017-03-26] MEDS: DEXMEDETOMIDINE HCL 400 MCG in NS 100 ML IV SCH ×2 (04:04→08:59)
[2017-03-26] MEDS: LEVALBUTEROL INHALER 200 PUFFS/15 GM MDI IH SCH ×5 (04:08→21:14)
[2017-03-26] MEDS: fentaNYL/NACL 100 ML IV SCH (05:29)
[2017-03-26 05:32] LABS: BASE EXCESS 4.1 mEq/L (-2.5-2.5); BICARBONATE 29 mEq/L (22-26); IONIZED CALCIUM 1.16 MMOL/L (1.12-1.30); MEASURED OXYGEN SATURATION 96 % (92-95); PCO2 46 mmHg (34-38); PO2 87 mmHg (65-75); TCO2 30 mEq/L (23-27)
[2017-03-26 05:39] LABS: ABSOLUTE IMMATURE GRANULOCYTES 0.03 10^3/uL (0.00-0.10); ADD DIFF? NO; ADD MORPH? NO; ADD SCAN? NO; ATYPICAL LYMPHOCYTE FLAG 50 (0-99); FRAGMENT RBC FLAG 0 (0-99); HEMOGLOBIN 11.4 g/dL (13.7-17.5); LEFT SHIFT FLG 10 (0-99); LIPEMIA HEMOLYSIS FLAG 80 (0-99); MEAN CELL HEMOGLOBIN 30.7 pg (27.9-34.1); MEAN CELL HEMOGLOBIN CONCENTR. 32.6 g/dL (32.4-36.7); MEAN CELL VOLUME 94.3 fL (81.5-99.8); MEAN PLATELET VOLUME 10.3 fL (8.7-11.7); PLATELET CLUMPS FLAG 0 (0-99); PLATELET COUNT 61 10^3/uL (150-400); RED BLOOD CELL COUNT 3.71 10^6/uL (4.40-6.38); RED CELL DISTRIBUTION WIDTH 14.2 % (11.5-15.2)
[2017-03-26 05:53] LABS: ANION GAP 6 mEq/L (8-16); CALCIUM 8.1 mg/dL (8.5-10.4); CARBON DIOXIDE 28 mEq/l (22-31); CHLORIDE 102 mEq/L (97-110); GLOMERULAR FILTRATION RATE > 60; GLUCOSE 170 mg/dL (70-100); MAGNESIUM 1.5 mg/dL (1.6-2.3); POTASSIUM 4.1 mEq/L (3.5-5.2); SODIUM 136 mEq/L (134-144)
[2017-03-26] MEDS ORDERED: MAGNESIUM SULF 1 GM/DEXTROSE 100 ML IV ONE (07:15)
[2017-03-26] MEDS: ERTAPENEM 1 GM in NS 100 ML IV SCH (08:03)
[2017-03-26] MEDS: AMIODARONE HCL 200 MG TAB TUBE SCH (08:03)
[2017-03-26] MEDS: PANTOPRAZOLE SODIUM 40 MG in NS 100 ML IV SCH ×2 (08:03→21:05)
[2017-03-26] MEDS: ENOXAPARIN 40 MG/0.4 ML SYR SC SCH (08:03)
[2017-03-26] MEDS: CHLORHEXIDINE GLUCONATE 15 ML UDL PO SCH (08:03)
[2017-03-26] MEDS ORDERED: FUROSEMIDE 40 MG/4 ML VIAL IVP ONE (09:19)
[2017-03-26 11:32] LABS: BASE EXCESS 4.7 mEq/L (-2.5-2.5); BICARBONATE 29 mEq/L (22-26); MEASURED OXYGEN SATURATION 97 % (92-95); PCO2 46 mmHg (34-38); PO2 97 mmHg (65-75); TCO2 30 mEq/L (23-27)
[2017-03-26 11:33] LABS: END TIDAL CO2 34; O2 CONCENTRATIION 40 % (0-100); P/F RATIO 243 RATIO
[2017-03-26 11:34] LABS: CPAP YES; PATIENT RATE 20
--- NOTE | 2017-03-26 12:22 | PDINTPN ---
[facility] Progress Note Assessment/Plan: Assessment: * Status post out of hospital VFib cardiac arrest 03/19. Rhythm stable on amiodarone, but has had some short runs of VT. On 2.5 of dobutamine. Blood pressures improved/normal. * HACA-completed protocol. Re-warmed, doing well overall. Mental status appears to be intact, but mild diffuse anoxic insult cannot be excluded as he has remained somnolent. Neurologic evaluation on hold currently is he is on ventilator and sedated. * Acute hypoxemic respiratory failure-secondary to aspiration/arrest initially. Extubated 03/23, reintubated early 03/24. Secretions, and pneumonitis from aspiration, volume overload/congestive heart failure all appear to have been involved. S/p bronchoscopy 03/24. Growing MRSA. On vancomycin. Tolerating CPAP weans without problems for over 2 hours. Weaning parameters are good as is CT as is ABG. Chest x-ray okay. Will extubate. * Aspiration pneumonitis-continue Invanz. Improving pulmonary status. * Hypotension: Resolved, blood pressure is fine, off Levophed.. * Cardiomyopathy: Ejection fraction 10-15% 03/20, 25% 03/24. Still remains volume overloaded, but diuresing well. On Lasix 40 mg twice a day * History of liver transplantation, Immunosuppression. On Prograf. Level somewhat high, repeat pending. Will dose 2 mg 1 per day until new level comes back: Hopefully today. * Chronic Hepatitis-C. 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 * Thrombocytopenia: 61 today. In part chronic. Follow. No history of HIT * Metabolic. Previous acidosis resolved. On replacement protocols. Hypocalcemic today. * Prognosis-neuro status appears to be intact. Will be able to evaluate this much better over the next several days if he stays off the ventilator. * Prophylactic anticoagulation: On Lovenox. * GI prophylaxis: On pantoprazole * Nutrition: NG in place. On tube feedings. Plan: Continue supportive care, antibiotics including vancomycin. Will extubate today and follow pulmonary status closely. I do not anticipate recurrent respiratory failure. Further Neurologic evaluation post extubation. Follow lab, chest x-ray intermittently. 45 minutes of critical care time was spent with the patient. Discussed issues with the patient's sister who is an ICU nurse, RT, nursing, and the ICU multi disciplinary team. Subjective: Sedated but arousable. Comfortable on the ventilator. Tolerating CPAP. Denies pain. Objective: Vital Signs Temp Pulse Resp BP Pulse Ox 37.5 C 97 21 H 121/71 H 99 03/26/17 10:00 03/26/17 10:00 03/26/17 10:00 03/26/17 10:00 03/26/17 10:00 Microbiology 03/24/17 11:30 - Final Sputum, Induced/Suctioned Sputum Culture - Final MRSA 03/19/17 23:27 Blood Culture - Final Blood 03/19/17 23:27 Blood Culture - Final Blood Laboratory Results 03/26/17 05:10 03/26/17 05:10 03/25/17 03/26/17 03/27/17 05:59 05:59 05:59 Intake Total 2080.4 3439 Output Total 4110 5350 Balance -2029.6 -1911 PT 13.6 SEC (12.0-15.0) 03/25/17 05:00 INR 1.05 (0.83-1.16) 03/25/17 05:00 Laboratory Tests 03/26/17 03/26/17 03/26/17 05:10 05:10 11:11 pCO2 46 H pO2 97 H ABG pH 7.42 O2 Concentration % 40 Actual Respiration Rate 20 CPAP YES Calcium 8.1 L Ionized Calcium 1.16 Phosphorus 3.6 Magnesium 1.5 L CXR: About the same. Bilateral infiltrates persist, better on the right, perhaps slightly worse on the left? Lines and tubes in good position. Physical Exam - Physical Exam General Appearance: other (Sedated, arousable, responsive) EENT: PERRL/EOMI, ET tube, other Neck: normal inspection (NG) Respiratory: lungs clear (Anteriorly), decreased breath sounds (At the bases), rales (Bibasilar rales present), rhonchi (Rhonchi present with forced exhalation and cough attempts), wheezing Cardiac/Chest: regular rate, rhythm Abdomen: normal bowel sounds, non-tender, soft, other (Tolerating tube feeding) Male Genitalia: other (Stein catheter in place, good urine output) Skin: warm/dry, pallor Extremities: pedal edema, swelling (Improving) Neuro/Psych: no motor/sensory deficits, No cognition abnormalities (Responsive, appears appropriate but detailed neurologic and cognitive evaluation cannot yet be done.) ICD10 Worksheet Patient Problems: Problems Problem Status Onset MRSA (methicillin resistant Staphylococcus aureus) Acute ~03/26/17 Cardiac arrest Acute Liver transplant recipient Acute Hepatitis C Acute Biventricular heart failure Acute
--- NOTE | 2017-03-26 12:31 | HOSPPROG ---
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 Extubated 03/23/2017, re-intubated 03/24/2017 early am due respiratory distress. Extubated again 03/26/2017. cardiac arrest: presumed arrhythmogenic as opposed to ischemic given known NICM. Previous EF 30-35%, was 10-15% on post-arrest echo, repeat echo 03/24 shows EF up to 20-25% (on dobutamine for inotropic support). neurologically intact. discussed with pulm. trop rel flat cont dobutamine for likely another 24 hrs per cards, repeat echo early next to reassess EF off dobutamine NICM: possibly secondary to cardiotoxicity from chemo during tx for Poole's sarcoma as a child cards following will need BB, josefina, spironolactone when conditioned stabilized candidate for AICD, timing per cards Acute hypoxemic respiratory failure secondary to cardiac arrest and acute systolic HF - diuresing well, extubated successfully today. Diuresed 7 L over past several days. CXR improved. prn lasix Aspiration PNA: Pt developed fevers after several days of coverage with Ertapenem. BCx's ngtd. MRSA on recent BAL Cx. Cont Erta and Vanc Speech eval VT: personally reviewed telemetry cont amiodarone liver transplant: H/O Hep C secondary to transfusions during chemo tx for poole' s. continue tacrolimus tacrolimus level pending lft's at baseline FEN: tube feeds at goal neuro: as above proph: LMWH code: Full code dispo: cont inpt Subjective: Pt extubated today, awake, alert. Fever curve trending down. Pain controlled. No CP. Objective: Vital Signs Temp Pulse Resp BP Pulse Ox 37.5 C 97 21 H 121/71 H 99 03/26/17 10:00 03/26/17 10:00 03/26/17 10:00 03/26/17 10:00 03/26/17 10:00 Microbiology 03/24/17 11:30 - Final Sputum, Induced/Suctioned Sputum Culture - Final MRSA 03/19/17 23:27 Blood Culture - Final Blood 03/19/17 23:27 Blood Culture - Final Blood Laboratory Results 03/26/17 05:10 03/25/17 03/26/17 03/27/17 05:59 05:59 05:59 Intake Total 2080.4 3439 Output Total 4110 5350 Balance -2028.6 -191 PT 13.6 SEC (12.0-15.0) 03/25/17 05:00 INR 1.05 (0.83-1.16) 03/25/17 05:00 - Physical Exam Constitutional: no apparent distress Eyes: PERRL Ears, Nose, Mouth, Throat: moist mucous membranes Cardiovascular: regular rate and rhythym Respiratory: no respiratory distress, clear to auscultation Gastrointestinal: normoactive bowel sounds, soft, non-tender abdomen Skin: warm Musculoskeletal: full muscle strength Neurologic: AAOx3 Psychiatric: interacting appropriately ICD10 Worksheet Patient Problems: Problems Problem Status Onset Biventricular heart failure Acute Cardiac arrest Acute Hepatitis C Acute Liver transplant recipient Acute MRSA (methicillin resistant Staphylococcus aureus) Acute ~03/26/17
[2017-03-26 12:47] LABS: POTASSIUM 3.9 mEq/L (3.5-5.2)
--- NOTE | 2017-03-26 13:41 | PDCARPN ---
Cardiology Progress Note Assessment/Plan: 41-year-old male who presented with an [id number] cardiac arrest on March 19 ; initial rhythm in the field was ventricular fibrillation; defibrillation resulted in tenriism of sinus rhythm without adequate perfusion (i.e.- PEA); return of spontaneous circulation with CPR and IV epinephrine. Has a history of Pratt sarcoma, liver failure with orthotopic transplantation in 2004, subsequent hepatitis C treated with Harvoni. Long-standing history of nonischemic cardiomyopathy and left bundle branch block. Best LVEF over the past several years was reported as 30-35%; had been on carvedilol and JACEK-I/ARB in the past. However, because of stability with no significant CHF, these medicines were DC'd. At the time of admission his only cardiac medication was PRN furosemide 20 mg for noticeable edema. Has had cardiac catheterization in the past which demonstrated angiographically normal coronary arteries. Sudden Cardiac - survived [id number] cardiac arrest with initial field rhythm of ventricular fibrillation; NSVT early in hospital course (none since 03/20) . * Maintaining normal sinus rhythm on amiodarone. Nonischemic Cardiomyopathy- long-standing with LVEF historically 30-35%; initial echocardiogram this hospital stay demonstrated an EF of 10-15%; repeat study 03/24 with an EF of 20-25%. * Plan for repeat limited study for EF early next week. Acute Systolic CHF- bilateral pleural effusions, air space disease, and generalized edema consistent with volume overload; has responded well to IV Lasix and dobutamine. * Reintubated 03/23; extubated at noon today. * Has had net negative fluid balance of -7 liters in past 72 Hr. * CXR appearance substantially improved. * Low dose dobutamine added 03/23 for inotropic support and to increase renal blood flow to facilitate diuresis; continue for 24 Hr longer Hypotension- off of pure pressor agents. Eventually will need institution of a standard CHF regimen to include beta luther,JACEK-I/ARB, loop diuretic, and aldosterone receptor antagonist. His neurologic appears to be largely intact. Will need ICD implantation for secondary prevention of sudden cardiac ; given his baseline LBBB, he is a candidate for cardiac resynchronization with a biventricular pacer/ICD. 03/26/17 13:34 Subjective: Extubated earlier today. Is conversant and responds appropriately. Sister had a long conversation with him about details of his arrest and the events of the past week. Reviewed/Discussed With: family, hospitalist Objective: Vital Signs (8 Hrs) Temp Pulse Resp BP Pulse Ox 03/26/17 13:00 38.1 C 97 23 H 99/57 L 95 03/26/17 12:00 38.0 C 97 18 105/66 94 03/26/17 11:00 38.0 C 102 H 18 117/70 99 03/26/17 10:00 37.5 C 96 18 134/72 H 99 03/26/17 09:00 37.3 C 88 17 125/66 H 100 03/26/17 08:23 37.5 C 86 17 136/72 H 99 03/26/17 08:00 37.5 C 88 141/79 H 99 03/26/17 07:00 37.6 C 87 18 135/73 H 100 03/26/17 06:00 37.7 C 96 18 131/74 H 99 Intake/Output (24 Hrs) 03/25/17 03/26/17 03/27/17 05:59 05:59 05:59 Intake Total 2080.4 3439 Output Total 4110 5350 2150 Balance -2028.6 -1910 -2149 Intake: Oral (ml) 0 IV Intake (ml) 724 1821 IV Infused (ml) 703.4 408 DOBUTamine/DEXTROSE 250 162 96 ml @ Titrate IV CONT MALINI Rx#:[id number] Dexmedetomidine HCl 400 458 247 mcg In Ns 100 ml @ Titrate IV CONT MALINI Rx#: [id number] fentaNYL/NACL 100 ml @ 83.4 65 Per Protocol IV CONT MALINI Rx#:[id number] Tube Feeding (ml) 538 1110 Tube Flush (ml) 115 100 Output: Urine (ml) 4110 5350 2150 Catheter 4110 5350 2150 Other: Weight 90 kg Result Diagrams: 03/26/17 05:10 03/26/17 12:00 - Physical Exam Constitutional: no apparent distress Eyes: anicteric sclera Ears, Nose, Mouth, Throat: moist mucous membranes Cardiovascular: regular rate and rhythm, no murmurs, no rubs, no gallops Respiratory: other (coarse breath sounds anteriorly) Gastrointestinal: normoactive bowel sounds, no tenderness, no masses Skin: no rashes, other (edema resolved) Psychiatric: not anxious ICD10 Worksheet Patient Problems: Problems Problem Status Onset Biventricular heart failure Acute Cardiac arrest Acute Hepatitis C Acute Liver transplant recipient Acute MRSA (methicillin resistant Staphylococcus aureus) Acute ~03/26/17
[2017-03-26] MEDS: FUROSEMIDE 40 MG/4 ML VIAL IVP SCH (16:20)
[2017-03-26 18:23] LABS: POTASSIUM 3.8 mEq/L (3.5-5.2)
[2017-03-26] MEDS: fentaNYL 100 MCG/2 ML INJ IVP PRN (21:03)
[2017-03-26] MEDS: LEVALBUTEROL 1.25 MG/3 ML DEYVIAL IH SCH (23:02)
[2017-03-27] MEDS: fentaNYL 100 MCG/2 ML INJ IVP PRN ×3 (00:41→04:45)
[2017-03-27 01:14] LABS: POTASSIUM 4.1 mEq/L (3.5-5.2)
[2017-03-27] MEDS: VANCOMYCIN 1.5 GM in D5W 250 ML IV SCH ×2 (04:01→15:08)
[2017-03-27] MEDS: ACETAMINOPHEN 650 MG/20.3 ML UDCUP TUBE PRN (04:45)
[2017-03-27] MEDS: LEVALBUTEROL 1.25 MG/3 ML DEYVIAL IH SCH ×4 (05:27→23:50)
[2017-03-27 05:53] LABS: IONIZED CALCIUM 1.17 MMOL/L (1.12-1.30)
[2017-03-27 05:55] LABS: HEMATOCRIT 36.1 % (40.0-51.0); HEMOGLOBIN 11.9 g/dL (13.7-17.5); MEAN CELL HEMOGLOBIN 30.9 pg (27.9-34.1); MEAN CELL VOLUME 93.8 fL (81.5-99.8); RED BLOOD CELL COUNT 3.85 10^6/uL (4.40-6.38)
[2017-03-27 06:17] LABS: ALANINE AMINOTRANSFERASE 44 IU/L (21-72); ALBUMIN 2.8 g/dL (3.5-5.0); ALKALINE PHOSPHATASE 115 IU/L (38-126); ANION GAP 9 mEq/L (8-16); ASPARTATE AMINOTRANSFERASE 50 IU/L (17-59); BILIRUBIN,TOTAL 1.2 mg/dL (0.1-1.4); BILIRUBIN-CONJUGATED 0.4 mg/dL (0.0-0.5); BILIRUBIN-UNCONJUGATED 0.8 mg/dL (0.0-1.1); CALCIUM 8.5 mg/dL (8.5-10.4); CARBON DIOXIDE 29 mEq/l (22-31); CHLORIDE 100 mEq/L (97-110); CREATININE 0.8 mg/dL (0.7-1.3); GLOMERULAR FILTRATION RATE > 60; GLUCOSE 182 mg/dL (70-100); MAGNESIUM 1.5 mg/dL (1.6-2.3); POTASSIUM 4.1 mEq/L (3.5-5.2); SODIUM 138 mEq/L (134-144); TOTAL PROTEIN 5.7 g/dL (6.3-8.2)
[2017-03-27] MEDS ORDERED: MAGNESIUM SULF 1 GM/DEXTROSE 100 ML IV ONE (07:15)
[2017-03-27] MEDS: PANTOPRAZOLE SODIUM 40 MG in NS 100 ML IV SCH (08:06)
[2017-03-27] MEDS: AMIODARONE HCL 200 MG TAB TUBE SCH (08:06)
[2017-03-27] MEDS: ENOXAPARIN 40 MG/0.4 ML SYR SC SCH (08:06)
[2017-03-27] MEDS: ERTAPENEM 1 GM in NS 100 ML IV SCH (08:06)
[2017-03-27] MEDS: FUROSEMIDE 40 MG/4 ML VIAL IVP SCH ×2 (08:06→15:08)
[2017-03-27] MEDS ORDERED: FUROSEMIDE 40 MG/4 ML VIAL IVP SCH (09:00)
--- NOTE | 2017-03-27 10:00 | PDCARPN ---
Cardiology Progress Note Assessment/Plan: Assessment: 1. Nonischemic cardiomyopathy 2. LBBB 3. OOH cardiac arrest (VF followed by PEA) 4. Liver transplant 5. Hepatitis C 6 h/o Pratt's sarcoma Plan: 1. Dobutamine to off today, currently at 2.5 mcg/kg/min 2. Continue IV diuresis with daily C7 monitoring 3. Still too early to consider BB or ACEI, will attempt to start prior to hospital discharge 4. BiV ICD prior to hospital discharge 03/27/17 09:59 Subjective: sp OOH Cardiac arrest related to VF Extubated, reports no new complaints Time Spent With Patient: 20 min Objective: Vital Signs (8 Hrs) Temp Pulse Resp BP Pulse Ox 03/27/17 08:00 38.7 C H 121 H 29 H 125/70 H 97 03/27/17 07:00 38.7 C H 121 H 30 H 125/71 H 97 03/27/17 06:00 38.9 C H 116 H 32 H 128/71 H 96 03/27/17 05:28 109 H 28 H 98 03/27/17 05:00 38.9 C H 112 H 29 H 123/74 H 98 03/27/17 04:00 38.5 C H 111 H 30 H 133/81 H 95 03/27/17 03:00 37.9 C 120 H 17 124/73 H 92 03/27/17 02:00 37.5 C 112 H 28 H 120/70 97 Intake/Output (24 Hrs) 03/25/17 03/26/17 03/27/17 11:59 11:59 11:59 Intake Total 2080.4 3439 2899 Output Total 4110 5350 6650 Balance - -996 -921 Intake: Oral (ml) 0 IV Intake (ml) 724 1821 973 IV Infused (ml) 703.4 408 334 DOBUTamine/DEXTROSE 250 162 96 179 ml @ Titrate IV CONT MALINI Rx#:[id number] Dexmedetomidine HCl 400 458 247 110 mcg In Ns 100 ml @ Titrate IV CONT MALINI Rx#: [id number] fentaNYL/NACL 100 ml @ 83.4 65 45 Per Protocol IV CONT MALINI Rx#:[id number] Tube Feeding (ml) 538 1110 1292 Tube Flush (ml) 115 100 300 Output: Urine (ml) 4110 5350 6650 Catheter 4110 5350 6650 Other: Weight 90 kg 91.3 kg Number of Stools Catheter 1 Result Diagrams: 03/27/17 05:40 03/27/17 05:40 Telemetry: LBBB, sinus tachycardia ICD10 Worksheet Patient Problems: Problems Problem Status Onset MRSA (methicillin resistant Staphylococcus aureus) Acute ~03/26/17 Cardiac arrest Acute Liver transplant recipient Acute Hepatitis C Acute Biventricular heart failure Acute
[2017-03-27] MEDS ORDERED: HYDROCOD/APAP 7.5/325 IN 15ML UDCUP PO PRN (11:16)
[2017-03-27] MEDS: ACETYLCYSTEINE 20% IH/PO 30 ML VIAL IH SCH ×3 (11:51→23:50)
--- NOTE | 2017-03-27 11:53 | HOSPPROG ---
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 Admitted with OOH cardiac arrest s/p HACA. Extubated 03/23/2017, re-intubated 03/24/2017 early am due respiratory distress. Extubated again 03/26/2017, Did okay overnight however did have some respiratory distress, after getting a dose of Lasix he has improved down to 4 0.5 L of oxygen supplemental. Discussed in multi-disciplinary rounds with pulmonology # cardiac arrest: presumed arrhythmogenic as opposed to ischemic given known NICM. Previous EF 30-35%, was 10-15% on post-arrest echo, repeat echo 03/24 shows EF up to 20-25% (on dobutamine for inotropic support). neurologically intact. * weaning dobutamine * reviewed cardiology notes # NICM: possibly secondary to cardiotoxicity from chemo during tx for Poole's sarcoma as a child * will need beta-luther and JACEK-inhibitor prior to discharge. 2 and stable at this time to initiate. * AICD prior to discharge # Acute hypoxemic respiratory failure secondary to cardiac arrest and acute systolic HF - diuresing well, extubated successfully today. Diuresed 7 L over past several days. CXR improved. * prn lasix # Aspiration PNA: Pt developed fevers after several days of coverage with Ertapenem. BCx's ngtd. MRSA on recent BAL Cx. * Cont Erta and Vanc * Speech eval # VT: personally reviewed telemetry * cont amiodarone #liver transplant: H/O Hep C secondary to transfusions during chemo tx for poole 's. continue tacrolimus * Adjusting tacrolimus. FEN: tube feeds at goal Subjective: very weak, breathing is a bit easier but still short of breath Objective: Vital Signs Temp Pulse Resp BP Pulse Ox 38.5 C H 106 H 31 H 119/73 98 03/27/17 09:00 03/27/17 11:00 03/27/17 11:00 03/27/17 11:00 03/27/17 11:00 Microbiology 03/24/17 11:30 - Final Sputum, Induced/Suctioned Sputum Culture - Final MRSA Laboratory Results 03/27/17 05:40 03/27/17 05:40 03/26/17 03/27/1717 05:59 05:59 05:59 Intake Total 3435 2899 Output Total 5354 5300 1350 Balance -1911 -2401 -1350 PT 13.6 SEC (12.0-15.0) 03/25/17 05:00 INR 1.05 (0.83-1.16) 03/25/17 05:00 - Physical Exam Constitutional: chronically ill appearing, uncomfortable Eyes: PERRL, EOMI Ears, Nose, Mouth, Throat: moist mucous membranes Cardiovascular: regular rate and rhythym Respiratory: inspiratory crackles, bronchial breath sounds, respiratory distress Gastrointestinal: soft, non-tender abdomen Genitourinary: no bladder fullness Skin: warm Musculoskeletal: generalized weakness, No muscular tenderness Neurologic: AAOx3 Psychiatric: interacting appropriately ICD10 Worksheet Patient Problems: Problems Problem Status Onset MRSA (methicillin resistant Staphylococcus aureus) Acute ~03/26/17 Cardiac arrest Acute Liver transplant recipient Acute Hepatitis C Acute Biventricular heart failure Acute
[2017-03-27 12:26] LABS: POTASSIUM 3.9 mEq/L (3.5-5.2)
[2017-03-27] MEDS ORDERED: POTASSIUM Cl (KCl) 50 ML IV ONE ×2 (12:34→18:32)
[2017-03-27] MEDS: TACROLIMUS 1 MG CAP TUBE SCH ×2 (13:56→22:34)
--- NOTE | 2017-03-27 16:24 | PDINTPN ---
[facility] Progress Note Assessment/Plan: Assessment: * Status post out of hospital VFib cardiac arrest 03/19. Rhythm stable on amiodarone, but has had some short runs of VT. On 2.5 of dobutamine, but weaning this off. Blood pressures improved/normal. * HACA-completed protocol. Re-warmed, doing well overall. Mental status appears to be intact, but mild diffuse anoxic insult cannot be excluded as he has remained somnolent. Neurologic evaluation on hold currently is he is on ventilator and sedated. * Acute hypoxemic respiratory failure-secondary to aspiration/arrest initially. Extubated 03/23, reintubated early 03/24, extubated again 03/26. Secretions, and pneumonitis from aspiration, volume overload/congestive heart failure all appear to have been involved. S/p bronchoscopy 03/24. Growing MRSA. On vancomycin. Doing okay since extubation.. * Aspiration pneumonitis-continue Invanz. Improving pulmonary status. * Hypotension: Resolved, blood pressure is fine, off Levophed.. * Cardiomyopathy: Ejection fraction 10-15% 03/20 - 25% 03/24. Still remains volume overloaded, but diuresing well. On Lasix 40 mg IV twice a day * History of liver transplantation, Immunosuppression. On Prograf. Levels now low. Will bump dose back to 2 mg twice a day.. * Chronic Hepatitis-C. 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 * Thrombocytopenia: 90 today. In part chronic. Follow. No history of HIT * Metabolic. Previous acidosis resolved. On replacement protocols. Hypocalcemic today. * Prognosis: neuro status appears to be intact. No evidence of significant anoxic injury. * Prophylactic anticoagulation: On Lovenox. * GI prophylaxis: On pantoprazole * Nutrition: NG in place. On tube feedings. Plan: Continue supportive care, antibiotics including vancomycin and bronchopulmonary therapies. Increase activity as tolerated. Restart Mucomyst. Restart 2 mg twice a day of Prograf. PT OT ST all to increase work with the patient. Bedside swallow evaluation today. May need video esophagram at some point. Continue to follow laboratory, x-ray. Continue Lasix at 40 mg twice a day. 40 minutes of critical care time was spent with the patient. Discussed issues with the patient's sister who is an ICU nurse, RT, nursing, and the ICU multi disciplinary team. Subjective: Had some shortness of breath or respiratory difficulties overnight, with mucous plugging and hypoxemia on 1 occasion. Better this morning. Objective: Vital Signs Temp Pulse Resp BP Pulse Ox 38.2 C 118 H 34 H 115/70 94 03/27/17 14:00 03/27/17 16:00 03/27/17 16:00 03/27/17 16:00 03/27/17 16:00 Microbiology 03/24/17 11:30 - Final Sputum, Induced/Suctioned Sputum Culture - Final MRSA Laboratory Results 03/27/17 05:40 03/27/17 12:00 03/26/17 03/27/17 03/28/17 05:59 05:59 05:59 Intake Total 3439 2899 Output Total 5350 5300 2200 Balance -1911 -2401 -2200 PT 13.6 SEC (12.0-15.0) 03/25/17 05:00 INR 1.05 (0.83-1.16) 03/25/17 05:00 Laboratory Tests 03/27/17 03/27/17 05:40 05:40 Sodium 138 Potassium 4.1 BUN 29 H Creatinine 0.8 Glucose 182 H Calcium 8.5 Ionized Calcium 1.17 Magnesium 1.5 L Total Bilirubin 1.2 AST 50 ALT 44 Albumin 2.8 L CXR: Improving Physical Exam - Physical Exam General Appearance: other (Lethargic, arousable, appropriate.) EENT: PERRL/EOMI, other (Nasal cannula at 3-4 L. NG tube remains in place) Neck: normal inspection Respiratory: decreased breath sounds (Bilaterally.), rales (Bibasilar rales), rhonchi (Some central rhonchi/congestion with forced exhalation and cough.), No wheezing Cardiac/Chest: tachycardia (Sinus) Abdomen: normal bowel sounds, non-tender, soft Skin: normal color, warm/dry Extremities: No pedal edema Neuro/Psych: no motor/sensory deficits, oriented x 3, motor weakness ( Generalized), No cognition abnormalities ICD10 Worksheet Patient Problems: Problems Problem Status Onset MRSA (methicillin resistant Staphylococcus aureus) Acute ~03/26/17 Cardiac arrest Acute Liver transplant recipient Acute Hepatitis C Acute Biventricular heart failure Acute
[2017-03-27] MEDS: HYDROCOD/APAP 7.5/325 IN 15ML UDCUP TUBE PRN ×2 (16:31→21:29)
[2017-03-27 18:14] LABS: POTASSIUM 3.7 mEq/L (3.5-5.2)
[2017-03-27 20:05] LABS: BASE EXCESS 7.4 mEq/L (-2.5-2.5); BICARBONATE 31 mEq/L (22-26); MEASURED OXYGEN SATURATION 91 % (92-95); PCO2 45 mmHg (34-38); PO2 70 mmHg (65-75); TCO2 33 mEq/L (23-27)
[2017-03-27] MEDS: LORazepam 2 MG/ML INJ IVP PRN (21:28)
[2017-03-27] MEDS: FAMOTIDINE 20 MG TAB TUBE SCH (21:29)
[2017-03-27] MEDS ORDERED: LORazepam 2 MG/ML INJ IVP ONE (23:35)
[2017-03-28] MEDS: fentaNYL 100 MCG/2 ML INJ IVP PRN ×2 (00:23→03:41)
[2017-03-28 00:33] LABS: POTASSIUM 4.1 mEq/L (3.5-5.2)
[2017-03-28] MEDS: VANCOMYCIN 1.5 GM in D5W 250 ML IV SCH ×2 (03:41→14:41)
[2017-03-28] MEDS: LEVALBUTEROL 1.25 MG/3 ML DEYVIAL IH SCH ×4 (05:10→23:52)
[2017-03-28] MEDS: ACETYLCYSTEINE 20% IH/PO 30 ML VIAL IH SCH ×4 (05:10→23:53)
[2017-03-28 05:58] LABS: ADD DIFF? NO; ADD MORPH? NO; ADD SCAN? NO; ATYPICAL LYMPHOCYTE FLAG 30 (0-99); FRAGMENT RBC FLAG 0 (0-99); HEMOGLOBIN 12.2 g/dL (13.7-17.5); LEFT SHIFT FLG 0 (0-99); LIPEMIA HEMOLYSIS FLAG 80 (0-99); MEAN CELL HEMOGLOBIN 30.7 pg (27.9-34.1); MEAN CELL HEMOGLOBIN CONCENTR. 32.1 g/dL (32.4-36.7); MEAN CELL VOLUME 95.5 fL (81.5-99.8); PLATELET CLUMPS FLAG 0 (0-99); PLATELET COUNT 135 10^3/uL (150-400); RED BLOOD CELL COUNT 3.98 10^6/uL (4.40-6.38)
[2017-03-28 06:08] LABS: ANION GAP 8 mEq/L (8-16); CALCIUM 8.6 mg/dL (8.5-10.4); CARBON DIOXIDE 31 mEq/l (22-31); CHLORIDE 102 mEq/L (97-110); CREATININE 0.9 mg/dL (0.7-1.3); GLOMERULAR FILTRATION RATE > 60; GLUCOSE 170 mg/dL (70-100); MAGNESIUM 1.7 mg/dL (1.6-2.3); POTASSIUM 4.1 mEq/L (3.5-5.2); SODIUM 141 mEq/L (134-144)
[2017-03-28] MEDS ORDERED: MAGNESIUM SULF 1 GM/DEXTROSE 100 ML IV ONE (06:57)
[2017-03-28] MEDS: TACROLIMUS 1 MG CAP TUBE SCH ×2 (08:07→20:52)
[2017-03-28] MEDS: FUROSEMIDE 40 MG/4 ML VIAL IVP SCH ×2 (08:07→14:41)
[2017-03-28] MEDS: ENOXAPARIN 40 MG/0.4 ML SYR SC SCH (08:07)
[2017-03-28] MEDS: ERTAPENEM 1 GM in NS 100 ML IV SCH (08:07)
[2017-03-28] MEDS: AMIODARONE HCL 200 MG TAB TUBE SCH (08:08)
[2017-03-28] MEDS: FAMOTIDINE 20 MG TAB TUBE SCH ×2 (08:08→20:52)
[2017-03-28] MEDS: ACETAMINOPHEN 650 MG/20.3 ML UDCUP TUBE PRN ×3 (09:25→20:50)
--- NOTE | 2017-03-28 10:20 | HOSPPROG ---
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 Admitted with OOH cardiac arrest s/p HACA. Extubated 03/23/2017, re-intubated 03/24/2017 early am due respiratory distress. Extubated again 03/26/2017, Did okay overnight however did have some respiratory distress, after getting a dose of Lasix he has improved down to 4 0.5 L of oxygen supplemental. Discussed in multi-disciplinary rounds with pulmonology # cardiac arrest: presumed arrhythmogenic as opposed to ischemic given known NICM. Previous EF 30-35%, was 10-15% on post-arrest echo, repeat echo 03/24 shows EF up to 20-25% (on dobutamine for inotropic support). neurologically intact. 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 2 and stable at this time to initiate. * AICD prior to discharge # Fever: ? source, blood cultures negative, on Vanco for MRSA in sputum, on Invanz for aspiration. * check UA * consider ID consult, pt immunocompromised. # Acute hypoxemic respiratory failure secondary to cardiac arrest and acute systolic HF - diuresing well, extubated successfully today. Diuresed 7 L over past several days. CXR improved. * prn lasix # Aspiration PNA: Pt developed fevers after several days of coverage with Ertapenem. BCx's ngtd. MRSA on recent BAL Cx. * Cont Erta and Vanc * Speech eval # VT: personally reviewed telemetry * cont amiodarone # Insomnia: diff sleeping, not responded to ativan. #liver transplant: H/O Hep C secondary to transfusions during chemo tx for poole 's. continue tacrolimus * Adjusting tacrolimus. FEN: tube feeds at goal Subjective: pt febrile overnight, having trouble sleeping. Objective: Vital Signs Temp Pulse Resp BP Pulse Ox 38.6 C H 117 H 33 H 117/74 97 03/28/17 08:00 03/28/17 08:00 03/28/17 08:00 03/28/17 08:00 03/28/17 08:00 Laboratory Results 03/28/17 05:40 06/11/17 05:40 03/27/17 03/28/17 03/29/17 05:59 05:59 05:59 Intake Total 2897 2905 Output Total 5300 5000 Balance -2401 -2095 PT 13.6 SEC (12.0-15.0) 03/25/17 05:00 INR 1.05 (0.83-1.16) 03/25/17 05:00 - Physical Exam Constitutional: chronically ill appearing, uncomfortable Eyes: PERRL, EOMI Ears, Nose, Mouth, Throat: moist mucous membranes Cardiovascular: regular rate and rhythym Respiratory: reduced air movement, inspiratory crackles (much improved), bronchial breath sounds, respiratory distress Gastrointestinal: normoactive bowel sounds, soft, non-tender abdomen, other (TF) Skin: No normal color Musculoskeletal: generalized weakness Neurologic: weakness, No facial droop Psychiatric: interacting appropriately ICD10 Worksheet Patient Problems: Problems Problem Status Onset MRSA (methicillin resistant Staphylococcus aureus) Acute ~03/26/17 Cardiac arrest Acute Liver transplant recipient Acute Hepatitis C Acute Biventricular heart failure Acute
[2017-03-28 11:36] LABS: COLOR YELLOW; LEUKOCYTE ESTERASE,URINE NEGATIVE (NEGATIVE); NITRITE,URINE NEGATIVE (NEGATIVE)
[2017-03-28 11:38] LABS: MUCUS TRACE /lpf (NONE-1+)
[2017-03-28 12:54] LABS: POTASSIUM 4.1 mEq/L (3.5-5.2)
--- NOTE | 2017-03-28 14:05 | PDINTPN ---
Rn X Ray Progress Note Assessment/Plan: Assessment: * Status post out of hospital VFib cardiac arrest 03/19. Rhythm stable on amiodarone, but has had some short runs of VT, none recently. Off dobutamine Blood pressures improved/normal. * HACA-completed protocol. Re-warmed, doing well overall. Mental status appears to be intact, but mild diffuse anoxic insult cannot be excluded as he has remained somnolent/week. * Acute hypoxemic respiratory failure-secondary to aspiration/arrest initially. Extubated 03/23, reintubated early 03/24, extubated again 03/26. Secretions, and pneumonitis from aspiration, volume overload/congestive heart failure all appear to have been involved. S/p bronchoscopy 03/24. Growing MRSA. On vancomycin. Doing okay since extubation. * Aspiration pneumonitis-continue Invanz. Day 10 of 14. Improved pulmonary status, but infiltrates and congestion persist. * Fevers: He has had ongoing fevers to 38 or 39 degrees. No obvious new source. Repeat cultures negative. On Invanz and vancomycin. Possible drug fever? - but no rash. I will have Infectious Disease evaluate. * Hypotension: Resolved, blood pressure is fine, off Levophed. * Cardiomyopathy: Ejection fraction 10-15% on 03/20, 25% on 03/24. Still remains volume overloaded, but diuresing well. On Lasix 40 mg IV twice a day * History of liver transplantation, Immunosuppression. On Prograf. Levels now low. Dose back up to 2 mg twice a day.. * Chronic Hepatitis-C. 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 * Thrombocytopenia: 135 today. In part chronic. Follow. No history of HIT * Metabolic. Previous acidosis resolved. On replacement protocols. Hypocalcemic today. * Prognosis: neuro status appears to be intact. No evidence of significant anoxic injury. * Prophylactic anticoagulation: On Lovenox. * GI prophylaxis: On pantoprazole * Nutrition: NG in place. On tube feedings. Plan: Continue supportive care, continue antibiotics including vancomycin and bronchopulmonary therapies. Infectious Disease consultation requested. Increase activity as tolerated. Continue Mucomyst. And 2 mg twice a day of Prograf. PT OT ST all to increase work with the patient. For repeat swallow evaluation at the bedside with speech. Continue to follow laboratory, x-ray. Continue Lasix at 40 mg twice a day. 40 minutes of critical care time was spent with the patient. Discussed issues with the patient's sister who is an ICU nurse, RT, nursing, and the ICU multi disciplinary team. Subjective: Up in the chair. Remains quite weak. The anterior chest pain still present but improving. Some shortness of breath. Objective: Vital Signs Temp Pulse Resp BP Pulse Ox 38.7 C H 117 H 36 H 121/76 H 96 03/28/17 10:00 03/28/17 12:00 03/28/17 12:00 03/28/17 10:00 03/28/17 12:00 Laboratory Results 03/28/17 05:40 03/28/17 12:20 03/27/17 03/28/17 03/29/17 05:59 05:59 05:59 Intake Total 2899 2905 Output Total 5300 5000 Balance -2401 -2095 PT 13.6 SEC (12.0-15.0) 03/25/17 05:00 INR 1.05 (0.83-1.16) 03/25/17 05:00 Laboratory Tests 03/27/17 03/28/17 02:25 05:40 Calcium 8.6 Magnesium 1.7 Vancomycin Trough 12.6 CXR: Bilateral changes persist with retrocardiac/left lower lobe atelectasis/ infiltrate/effusion. Changes at right base persist as well. Physical Exam - Physical Exam General Appearance: other (Appears weak, up in the chair), No no apparent distress EENT: PERRL/EOMI, other (Nasal cannula or oxy mask in place) Neck: normal inspection (No obvious JVD) Respiratory: decreased breath sounds, rales (Rales present at bases, with some bronchial congestion. No america rhonchi.) Cardiac/Chest: tachycardia (Sinus tachycardia) Abdomen: non-tender, soft, No normal bowel sounds (Decreased, present) Male Genitalia: other (Stein catheter in place. Excellent urine output. Output greater than input) Skin: warm/dry, pallor Extremities: pedal edema (Trace) Neuro/Psych: No no motor/sensory deficits (Moves all extremities equally, but globally weak), No cognition abnormalities ICD10 Worksheet Patient Problems: Problems Problem Status Onset MRSA (methicillin resistant Staphylococcus aureus) Acute ~03/26/17 Cardiac arrest Acute Liver transplant recipient Acute Hepatitis C Acute Biventricular heart failure Acute
[2017-03-28] MEDS ORDERED: diphenhydrAMINE 25 MG CAP PO PRN (15:21)
--- NOTE | 2017-03-28 17:05 | GCON ---
[f rep st] CONSULTATION DATE OF CONSULTATION: 03/28/2017 REFERRING PHYSICIAN: Ban Lange MD REASON FOR CONSULTATION: Fever. HISTORY OF PRESENT ILLNESS: The patient is a 41-year-old male who was admitted on 03/19/2017 with o [id number] cardiac arrest. He has an underlying history of chronic immunosuppression related to prior liver transplantation. The patient was noted at the time of his transport following arrest t o have vomiting with aspiration. The patient's arrest was ultimately felt to be related to arrhythm ia. He was treated with HACA protocol and subsequently rewarmed. He has been treated with Invanz o flavia the last 10 days. Sputum sample obtained on 03/24/2017 showed growth of MRSA. Vancomycin was s tarted on 03/25/2017. The patient has experienced persistent fever, which initially was more episod ic and has become more continuous in nature over the last 2 days. The patient notes continued cough and sputum production. He does not have any chest pain. There is no nausea, vomiting, or diarrhea . He does have a chronic indwelling Stein catheter and a right upper extremity PICC line. Based on the patient's persistent fever, I am now asked to assist in his ongoing management. PAST MEDICAL HISTORY: Pratt sarcoma, chronic hepatitis C requiring liver transplantation, nonischem ic cardiomyopathy. PAST SURGICAL HISTORY: Liver transplantation. CURRENT MEDICATIONS: Vancomycin 1.5 g IV q.12 hours, ertapenem 1 g IV daily, Mucomyst, amiodarone 2 00 mg per NG tube daily, Lovenox 40 mg subcu daily, Pepcid 20 mg per NG tube b.i.d., Lasix 40 mg IV b.i.d., Xopenex q.6 hours, Prograf 2 mg per NG tube b.i.d. ALLERGIES: No known drug allergies. SOCIAL HISTORY: Patient does not smoke or drink significant alcohol. FAMILY HISTORY: Currently noncontributory to presentation. REVIEW OF SYSTEMS: Outside that noted in HPI, remainder of 10-system review is unremarkable, althou gh he has some remaining slow mentation. PHYSICAL EXAMINATION: VITAL SIGNS: Temperature maximum 38.7, heart rate 117, respiratory rate 34, blood pressure 114/78. GENERAL: Patient is well nourished, well developed, in no acute distress. He appears nontoxic. HEENT: No scleral icterus, conjunctival injection, or conjunctival petechiae. Oropharynx shows thick coating on tongue, but no thrush. No nasal discharge. NG tube is in place . NECK: Supple without palpable lymphadenopathy or thyromegaly. CHEST: There are course breath s ounds and crackles bilaterally. The respiratory effort is increased. CARDIOVASCULAR: Tachycardic with a 2/6 holosystolic murmur throughout. There is a prominent PMI present. ABDOMEN: Soft, nonte nder, nondistended. There is no palpable organomegaly. Bowel sounds are present. MUSCULOSKELETAL: There is no cyanosis, clubbing, or edema; there are 2 areas of phlebitis over the left upper extre mity without palpable fluctuance. These are mildly tender. NEUROLOGIC: Patient is alert and inter acts appropriately with the examiner. He has some impulsivity. He moves all extremities without di fficulty. Muscle tone and bulk are normal. LYMPHATICS: No cervical or supraclavicular nodes. : Stein catheter in place. SKIN: There are 2 areas of skin breakdown over the lower thoracic regio n without surrounding erythema. LABORATORY DATA: White blood cell count 10.5, hematocrit 38.0, platelets 135, neutrophils 83%. Ser um creatinine is 0.9. AST 50, ALT 44, bilirubin 1.2, alkaline phosphatase 115. Urinalysis with 3-5 red cells and 1-3 white blood cells. Vancomycin trough 12.6. Blood cultures x2 sets from 03/27/20 17 are pending. Blood cultures from 03/24/2017 are negative. Sputum from 03/24/2017 shows growth o f MRSA. Chest x-ray: Bibasilar opacities with right pleural effusion. IMPRESSION: Fever: Broad differential diagnosis for patient's persistent fever. Given the persist ent nature and consistency, drug fever is a consideration with ertapenem seemingly most likely. Giv en the patient's known aspiration and persistent respiratory symptoms, necrotizing pneumonia or empy abdi would also be a consideration. He does have indwelling PICC line in place, raising potential fo r line-associated bacteremia or fungemia. Does have 2 areas of phlebitis over the left upper extrem ity. These are relatively mild and I suspect not contributing. RECOMMENDATIONS: 1. Agree with continued vancomycin. 2. Discontinue ertapenem. 3. Agree with plans for CT scan of chest to further characterize pulmonary infiltrates and assess f or any complicated pleural fluid collections. 4. Follow up blood cultures as available. 5. Thank you for this consultation. We will continue to follow the patient with you. /[id number]/MODL
[2017-03-28 18:25] LABS: POTASSIUM 3.7 mEq/L (3.5-5.2)
[2017-03-28] MEDS ORDERED: POTASSIUM Cl (KCl) 50 ML IV ONE (19:33)
[2017-03-28] MEDS ORDERED: HYDROGEN PEROXIDE 236 ML BOTTLE TP ONE (20:34)
[2017-03-28] MEDS: MELATONIN 3 MG TAB PO SCH (20:52)
[2017-03-29] MEDS: ALTEPLASE 2 MG VIAL IVP PRN ×2 (01:30→01:32)
[2017-03-29 02:31] LABS: POTASSIUM 3.7 mEq/L (3.5-5.2)
[2017-03-29] MEDS ORDERED: POTASSIUM Cl (KCl) 50 ML IV ONE ×3 (02:45→22:27)
[2017-03-29] MEDS: VANCOMYCIN 1.5 GM in D5W 250 ML IV SCH ×2 (02:57→15:53)
[2017-03-29] MEDS ORDERED: HYDROGEN PEROXIDE 236 ML BOTTLE TP ONE (04:10)
[2017-03-29 04:31] LABS: % IMMATURE GRANULYOCYTES 0.7 % (0.0-1.1); ABSOLUTE IMMATURE GRANULOCYTES 0.06 10^3/uL (0.00-0.10); ADD DIFF? NO; ADD MORPH? NO; ADD SCAN? NO; ATYPICAL LYMPHOCYTE FLAG 20 (0-99); FRAGMENT RBC FLAG 0 (0-99); HEMATOCRIT 39.5 % (40.0-51.0); HEMOGLOBIN 12.5 g/dL (13.7-17.5); LEFT SHIFT FLG 0 (0-99); LIPEMIA HEMOLYSIS FLAG 80 (0-99); MEAN CELL HEMOGLOBIN CONCENTR. 31.6 g/dL (32.4-36.7); PLATELET CLUMPS FLAG 0 (0-99); PLATELET COUNT 173 10^3/uL (150-400); RED BLOOD CELL COUNT 4.16 10^6/uL (4.40-6.38); RED CELL DISTRIBUTION WIDTH 13.9 % (11.5-15.2)
[2017-03-29 05:02] LABS: ANION GAP 7 mEq/L (8-16); CARBON DIOXIDE 31 mEq/l (22-31); CHLORIDE 102 mEq/L (97-110); CREATININE 0.8 mg/dL (0.7-1.3); GLOMERULAR FILTRATION RATE > 60; GLUCOSE 168 mg/dL (70-100); MAGNESIUM 1.9 mg/dL (1.6-2.3); POTASSIUM 4.4 mEq/L (3.5-5.2); SODIUM 140 mEq/L (134-144)
[2017-03-29] MEDS: LEVALBUTEROL 1.25 MG/3 ML DEYVIAL IH SCH ×3 (06:12→17:45)
[2017-03-29] MEDS: ACETYLCYSTEINE 20% IH/PO 30 ML VIAL IH SCH ×3 (06:12→17:45)
[2017-03-29] MEDS: TACROLIMUS 1 MG CAP TUBE SCH ×2 (08:46→20:57)
[2017-03-29] MEDS: FAMOTIDINE 20 MG TAB TUBE SCH ×2 (08:46→20:57)
[2017-03-29] MEDS: AMIODARONE HCL 200 MG TAB TUBE SCH (08:46)
[2017-03-29] MEDS: FUROSEMIDE 40 MG/4 ML VIAL IVP SCH ×2 (08:46→15:54)
[2017-03-29] MEDS: ENOXAPARIN 40 MG/0.4 ML SYR SC SCH (09:03)
[2017-03-29] MEDS ORDERED: ZOLPIDEM TARTRATE 5 MG TAB PO PRN (11:12)
--- NOTE | 2017-03-29 12:02 | HOSPPROG ---
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 Admitted with OOH cardiac arrest s/p HACA. Extubated 03/23/2017, re-intubated 03/24/2017 early am due respiratory distress. Extubated again 03/26/2017, continues to have some respiratory distress with increased oxygen needs overnight. Discussed in multi- disciplinary rounds with pulmonology # cardiac arrest: presumed arrhythmogenic as opposed to ischemic given known NICM. Previous EF 30-35%, was 10-15% on post-arrest echo, repeat echo 03/24 shows EF up to 20-25% (on dobutamine for inotropic support). neurologically intact. * off dobutamine * reviewed cardiology notes, discussed with Dr. 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 2 and stable at this time to initiate. * AICD prior to discharge, needs to wait till fever resolved # Fever: ? source, blood cultures negative, on Vanco for MRSA in sputum, Invanz discontinued for possible drug fever. Fevers persisting overnight. * Check C diff * Id consult appreciated, possible drug fever # Acute hypoxemic respiratory failure secondary to cardiac arrest and acute systolic HF - increased oxygen needs. Chest x-ray reviewed and shows persistent basilar infiltrate and pleural effusions which are mild. Defer to ID if they want to get a CT scan to rule out empyema or loculated effusion. # Aspiration PNA: Pt developed fevers after several days of coverage with Ertapenem. BCx's ngtd. MRSA on recent BAL Cx. * Vanco * Speech eval # VT: personally reviewed telemetry * cont amiodarone, AICD when patient is stable # Insomnia: diff sleeping, not responded to ativan. #liver transplant: H/O Hep C secondary to transfusions during chemo tx for poole 's. continue tacrolimus * Adjusting tacrolimus. FEN: tube feeds at goal Subjective: Confused at times. Still unable to sleep at night. . Objective: Vital Signs Temp Pulse Resp BP Pulse Ox 37.0 C 112 H 22 H 130/80 H 99 03/29/17 06:00 03/29/17 06:24 03/29/17 06:24 03/29/17 06:00 03/29/17 06:00 Laboratory Results 03/29/17 04:20 03/29/17 04:20 03/28/17 03/29/17 03/30/17 05:59 05:59 05:59 Intake Total 2905 2373 Output Total 5000 1725 Balance -2095 648 PT 13.6 SEC (12.0-15.0) 03/25/17 05:00 INR 1.05 (0.83-1.16) 03/25/17 05:00 - Physical Exam Constitutional: not in pain, chronically ill appearing, uncomfortable Eyes: PERRL, anicteric sclera, EOMI Ears, Nose, Mouth, Throat: moist mucous membranes Cardiovascular: tachycardia, No systolic murmur, No edema Respiratory: reduced air movement, inspiratory crackles, bronchial breath sounds , respiratory distress Gastrointestinal: normoactive bowel sounds, soft, non-tender abdomen, other (peg ) Genitourinary: pablo in urethra Skin: normal color Musculoskeletal: generalized weakness Neurologic: AAOx3 (With intermittent confusion.) Psychiatric: interacting appropriately ICD10 Worksheet Patient Problems: Problems Problem Status Onset MRSA (methicillin resistant Staphylococcus aureus) Acute ~03/26/17 Cardiac arrest Acute Liver transplant recipient Acute Hepatitis C Acute Biventricular heart failure Acute
--- NOTE | 2017-03-29 13:25 | NEUROPROG ---
Assessment: 1. Status post cardiac arrest with HACA 2. Chronic immunosuppression 3. History of malignancy 4. Right [employer] stroke 35 total minutes floor time; over 50% counseling regarding the patient's complex medical history. I reviewed his hospital records including initial neurologic consultation by Dr. Delgado. Essentially, the patient has a complicated medical background with a recent cardiac arrest status post HACA protocol. He is awake and alert and following commands. Repeat head CT did show a subacute right posterior cerebral artery infarction. We will obtain a MRI brain without contrast to visualize the full extent of any subacute/ acute infarction at likely occurred from initial hypoperfusion. I will follow up after MRI brain to financial services counselor the patient and his regarding results Subjective: No new events Objective: Vital Signs Temp Pulse Resp BP Pulse Ox 37.0 C 112 H 22 H 130/80 H 99 03/29/17 06:00 03/29/17 06:24 03/29/17 06:24 03/29/17 06:00 03/29/17 06:00 Laboratory Results 03/29/17 04:20 03/29/17 04:20 03/28/17 03/29/17 03/30/17 05:59 05:59 05:59 Intake Total 2905 2373 Output Total 5000 1725 Balance -2095 648 PT 13.6 SEC (12.0-15.0) 03/25/17 05:00 INR 1.05 (0.83-1.16) 03/25/17 05:00 Awake and alert Denies visual field cut, exam not entirely clear No pronator drift No weakness in distal lower extremities Allergies/Adverse Reactions: No Known Allergies Allergy (Unverified 03/20/17 00:36)
--- NOTE | 2017-03-29 13:26 | PDINTPN ---
[employer] Progress Note Assessment/Plan: Assessment/plan: 41 M with known non-ischemic CMP (EF 25%), liver transplant, had witnessed VFib arrest. Immediate bystander CPR initiated and followed HACA protocol. He has had a prolonged hospital course complicated with intubation/extubation/re- intubation from presumed aspiration Pneumonia. Also with remote RLL lobectomy 2/ 2 Ewings sarcoma. Also with recurrent FUO and altered MS, but overall improved compared to admission. * VF arrest- etiology not clear to me, but currently stable on amiodarone po. Awaiting AICD when fevers diagnosed and treated. * Respiratory failure with hypoxia from aspiration at time of arrest complicated by known CHF. Underwent bronch 03/24 growing MRSA and treated with vanco. CT chest with some improvement in RUL but largely stable with diffuse infiltrates and consolidation in lower lobes. No convincing empyema. Doubt re- bronchoscopy would be helpful. Cont IS, OOB, etc. * FUO- ID consult pending, but cx's unrevealing to date. New diarrhea today so C diff sent. Driug fever remains in the ddx, though no significant eosinophils and no rash. * CMP with EF 25%. Stable on lasix BID. * Altered MS- presumed from VF arrest, but head CT 03/28/17 shows subacute right occipital infarct. Non-focal neuro exam. Not sure additional therapy indicated other than support with PT/OT, etc. Ambien added today to assist with sleep/ wake cycle. * Liver transplant- remains on Prograf * * Objective: Vital Signs Temp Pulse Resp BP Pulse Ox 37.0 C 112 H 22 H 130/80 H 99 03/29/17 06:00 03/29/17 06:24 03/29/17 06:24 03/29/17 06:00 03/29/17 06:00 Laboratory Results 03/29/17 04:20 03/29/17 04:20 03/28/17 03/29/17 03/30/17 05:59 05:59 05:59 Intake Total 2905 2373 Output Total 5000 1725 Balance -2095 648 PT 13.6 SEC (12.0-15.0) 03/25/17 05:00 INR 1.05 (0.83-1.16) 03/25/17 05:00 Physical Exam - Physical Exam General Appearance: alert, no apparent distress EENT: PERRL/EOMI Neck: supple Respiratory: decreased breath sounds, No respiratory distress Cardiac/Chest: regular rate, rhythm, No edema Abdomen: non-tender, soft, No distended Skin: normal color, warm/dry Lymphatic: no adenopathy Extremities: No pedal edema Neuro/Psych: no motor/sensory deficits, alert, normal mood/affect ICD10 Worksheet Patient Problems: Problems Problem Status Onset Biventricular heart failure Acute Cardiac arrest Acute Hepatitis C Acute Liver transplant recipient Acute MRSA (methicillin resistant Staphylococcus aureus) Acute ~03/26/17
[2017-03-29 13:53] LABS: POTASSIUM 3.8 mEq/L (3.5-5.2)
[2017-03-29] MEDS ORDERED: diphenhydrAMINE 12.5 MG/5 ML UDCUP TUBE PRN (14:41)
--- NOTE | 2017-03-29 19:02 | PCMIDPN ---
Assessment/Plan: Assessment: Fevers- unclear etiology but I agree with Dr. Candelaria that the pattern is more reminiscent of a consistent drug fever rather than a cyclic inflammatory fever. He is currently afebrile at time of evaluation perhaps this is secondary to discontinuation of ertapenem. Tracking the fever curve in the upcoming day or to will tell. At this point would continue the vancomycin monotherapy. The repeat CT scan of his chest showed continued consolidation in the lower lobes left > than right. Small development of a left-sided pleural effusion. This does not appear to be thick walled. Plan: 1. Continue vancomycin monotherapy. 2. follow fever curve. 3. follow Pulmonary and neurologic status. 03/29/17 20:17 Subjective: patient is sitting up in a chair. His eyes are open and he is alert and conversational. He still seems a bit confused. He states that he is continuing to have objective fevers but he does not feel like he is feverish. He will often times neglect to keep his supplemental oxygen nasal cannula in place and his O2 sats will drop into the mid to low 80s. Objective: vancomycin # 4 Vital Signs Temp Pulse Resp BP Pulse Ox 37.3 C 115 H 22 H 113/75 96 03/29/17 16:00 03/29/17 17:45 03/29/17 17:45 03/29/17 16:00 03/29/17 17:45 Microbiology 03/24/17 12:20 Blood Culture - Final Blood 03/24/17 12:05 Blood Culture - Final Blood Laboratory Results 03/29/17 04:20 03/29/17 07:10 03/28/17 03/29/17 03/30/17 05:59 05:59 05:59 Intake Total 2905 2373 Output Total 9855 1725 1850 Balance -2097 918 -2550 - Physical Exam General Appearance: WD/WN, alert, no apparent distress, thin, non-toxic Respiratory: crackles, No lungs clear, No normal breath sounds, No wheezing Cardiac/Chest: regular rate, rhythm, tachycardia, No irregularly irregular Skin: normal color, warm/dry, No rash Neuro/Psych: alert, normal mood/affect ICD10 Worksheet Patient Problems: Problems Problem Status Onset Biventricular heart failure Acute Cardiac arrest Acute Hepatitis C Acute Liver transplant recipient Acute MRSA (methicillin resistant Staphylococcus aureus) Acute ~03/26/17
--- NOTE | 2017-03-29 19:27 | PDCARPN ---
Cardiology Progress Note Chief Complaint: out of hosptial cardiac arrest. Assessment/Plan: Assessment: 1. Out of hospital cardiac arrest initially found to be in ventricular fibrillation then PEA post shock with HACA protocol initiated. He had a heart cath a few years ago when he developed heart failure following liver transplant. He will need BIV defib once he is no longer at risk for bacteremia but definitely prior to hospital discharge. Needs to be placed on a more traditional cardiomyopathy regimen as time goes on. Plan: As Above. 03/29/17 19:24 Subjective: I am feeling better Reviewed/Discussed With: hospitalist, multidisciplinary team, other Time Spent With Patient: 25 minutes Objective: Vital Signs (8 Hrs) Temp Pulse Resp BP Pulse Ox 03/29/17 18:00 122 H 37 H 105/61 90 L 03/29/17 17:45 115 H 22 H 96 03/29/17 16:00 37.3 C 117 H 27 H 113/75 96 03/29/17 12:00 130 H 93 Intake/Output (24 Hrs) 03/28/17 03/29/17 03/30/17 05:59 05:59 05:59 Intake Total 2905 2373 Output Total 5000 1725 2200 Balance -2095 648 -2200 Intake: IV Intake (ml) 1007 823 IV Infused (ml) 41 DOBUTamine/DEXTROSE 250 41 ml @ Titrate IV CONT MALINI Rx#:[id number] Tube Feeding (ml) 1477 1350 Tube Flush (ml) 380 200 Output: Urine (ml) 5000 1725 1400 Catheter 5000 1725 Urinal 1400 Urine/Stool Mix (ml) 800 Bedside Commode 800 Other: Weight 86.7 kg 92.3 kg Number of Stools Catheter 1 3 Result Diagrams: 03/29/17 04:20 03/29/17 07:10 Telemetry: No V fib occasional PVCs present. - Physical Exam Constitutional: no apparent distress Cardiovascular: regular rate and rhythm, other (positive S3 and S4) Respiratory: other (positive rhonci bilaterally) Gastrointestinal: normoactive bowel sounds ICD10 Worksheet Patient Problems: Problems Problem Status Onset Biventricular heart failure Acute Cardiac arrest Acute Hepatitis C Acute Liver transplant recipient Acute MRSA (methicillin resistant Staphylococcus aureus) Acute ~03/26/17
[2017-03-29] MEDS: MELATONIN 3 MG TAB PO SCH (20:57)
[2017-03-29] MEDS: ACETAMINOPHEN 650 MG/20.3 ML UDCUP TUBE PRN (21:02)
[2017-03-29 21:47] LABS: POTASSIUM 3.9 mEq/L (3.5-5.2)
[2017-03-30] MEDS: LEVALBUTEROL 1.25 MG/3 ML DEYVIAL IH SCH ×4 (00:01→16:20)
[2017-03-30] MEDS: ACETYLCYSTEINE 20% IH/PO 30 ML VIAL IH SCH ×4 (00:41→16:20)
[2017-03-30] MEDS: VANCOMYCIN 1.5 GM in D5W 250 ML IV SCH ×2 (04:16→15:11)
[2017-03-30 10:07] LABS: ANION GAP 13 mEq/L (8-16); CALCIUM 9.2 mg/dL (8.5-10.4); CARBON DIOXIDE 28 mEq/l (22-31); CHLORIDE 103 mEq/L (97-110); CREATININE 0.9 mg/dL (0.7-1.3); GLOMERULAR FILTRATION RATE > 60; GLUCOSE 141 mg/dL (70-100); SODIUM 144 mEq/L (134-144)
[2017-03-30] MEDS: TACROLIMUS 1 MG CAP TUBE SCH ×2 (11:02→21:05)
[2017-03-30] MEDS: FAMOTIDINE 20 MG TAB TUBE SCH ×2 (11:02→21:04)
[2017-03-30] MEDS: AMIODARONE HCL 200 MG TAB TUBE SCH (11:03)
[2017-03-30] MEDS: FUROSEMIDE 40 MG/4 ML VIAL IVP SCH (11:08)
[2017-03-30] MEDS ORDERED: FUROSEMIDE 20 MG/2 ML VIAL IVP ONE (11:45)
--- NOTE | 2017-03-30 12:00 | HOSPPROG ---
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 Admitted with OOH cardiac arrest s/p HACA. Extubated 03/23/2017, re-intubated 03/24/2017 early am due respiratory distress. Extubated again 03/26/2017, continues to have some respiratory distress with increased oxygen needs overnight. Discussed in multi- disciplinary rounds with pulmonology # cardiac arrest: presumed arrhythmogenic as opposed to ischemic given known NICM. Previous EF 30-35%, was 10-15% on post-arrest echo, repeat echo 03/24 shows EF up to 20-25% (on dobutamine for inotropic support). neurologically intact. * off dobutamine * reviewed cardiology notes, discussed with Dr. Kimbrough * # on CT, confirmed with MRI. 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 2 and stable at this time to initiate. * AICD prior to discharge, Afebril since early 03/29. defer to cards. # Fever: Likely drug fever from Invanz, patient has been afebrile since around midnight on 03/28. Cultures all negative # Acute hypoxemic respiratory failure secondary to cardiac arrest and acute systolic HF - oxygen saturations have been improving. Will decrease Lasix. * Lasix 20 mg daily # Aspiration PNA: Pt developed fevers after several days of coverage with Ertapenem. BCx's ngtd. MRSA on recent BAL Cx. * Vanco L OT per ID * Speech eval # VT: personally reviewed telemetry * cont amiodarone, AICD when patient is stable # Insomnia: diff sleeping, not responded to ativan. #liver transplant: H/O Hep C secondary to transfusions during chemo tx for poole 's. continue tacrolimus * Adjusting tacrolimus. FEN: tube feeds at goal Subjective: Confused this morning. Said he slept a little bit last night no other concerns, his breathing seems better today. Objective: Vital Signs Temp Pulse Resp BP Pulse Ox 37.5 C 116 H 18 116/80 94 03/30/17 08:00 03/30/17 11:41 03/30/17 11:41 03/30/17 08:00 03/30/17 11:41 Microbiology 03/20/17 11:00 Mycobacterial Smear (ROBY) - Final Lung Bilateral - Bronchial Washings 03/24/17 12:20 Blood Culture - Final Blood 03/24/17 12:05 Blood Culture - Final Blood Laboratory Results 03/29/17 04:20 03/30/17 06:00 03/29/17 03/30/17 03/31/17 05:59 05:59 05:59 Intake Total 2373 1634 Output Total 1725 2600 300 Balance 648 -966 -300 PT 13.6 SEC (12.0-15.0) 03/25/17 05:00 INR 1.05 (0.83-1.16) 03/25/17 05:00 - Physical Exam Constitutional: chronically ill appearing, uncomfortable Eyes: PERRL, anicteric sclera, EOMI Ears, Nose, Mouth, Throat: moist mucous membranes Cardiovascular: regular rate and rhythym, tachycardia Respiratory: no respiratory distress, reduced air movement, bronchial breath sounds Gastrointestinal: normoactive bowel sounds, soft, non-tender abdomen, other Genitourinary: no bladder fullness Skin: warm, normal color Musculoskeletal: generalized weakness, No full muscle strength Neurologic: No AAOx3 Psychiatric: interacting appropriately ICD10 Worksheet Patient Problems: Problems Problem Status Onset MRSA (methicillin resistant Staphylococcus aureus) Acute ~03/26/17 Cardiac arrest Acute Liver transplant recipient Acute Hepatitis C Acute Biventricular heart failure Acute
--- NOTE | 2017-03-30 14:49 | PDINTPN ---
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 Immediate bystander CPR initiated and followed HACA protocol. He has had a prolonged hospital course complicated with intubation/extubation/re- intubation from presumed aspiration Pneumonia. Also with remote RLL lobectomy 2/ 2 Ewings sarcoma. Also with recurrent FUO and altered MS, but overall improved compared to admission. * VF arrest- etiology not clear to me, but currently stable on amiodarone po. Await AICD placement * Respiratory failure with hypoxia from aspiration at time of arrest complicated by known CHF. Underwent bronch / growing MRSA and treated with vanco. CT chest with some improvement in RUL but largely stable with diffuse infiltrates and consolidation in lower lobes. No convincing empyema. Doubt re- bronchoscopy would be helpful. Has been on lasix 40 bid which has helped with O2 needs, but agree with reducing dose. * FUO- fevers have abated since stopping invanz. No positive cultures * CMP with EF 25%. Stable on lasix BID; see above * Altered MS- presumed from VF arrest, complicated by evidence of subacute right occipital infarct and hemosiderin deposition on MRI; therefore lovenox dc' d in favor of SCDs. * Liver transplant- remains on Prograf * * 03/30/17 14:44 Objective: Vital Signs Temp Pulse Resp BP Pulse Ox 37.0 C 120 H 42 H 118/75 91 L 03/30/17 12:30 03/30/17 12:30 03/30/17 12:30 03/30/17 12:30 03/30/17 12:30 Microbiology 03/20/17 11:00 Mycobacterial Smear (ROBY) - Final Lung Bilateral - Bronchial Washings 03/24/17 12:20 Blood Culture - Final Blood 03/24/17 12:05 Blood Culture - Final Blood Laboratory Results 03/29/17 04:20 03/30/17 06:00 03/29/17 03/30/17 03/31/17 05:59 05:59 05:59 Intake Total 2373 1634 Output Total 1725 2600 300 Balance 648 -966 -300 PT 13.6 SEC (12.0-15.0) 03/25/17 05:00 INR 1.05 (0.83-1.16) 03/25/17 05:00 Physical Exam - Physical Exam General Appearance: alert, no apparent distress EENT: PERRL/EOMI Neck: supple Respiratory: lungs clear, normal breath sounds, No respiratory distress Cardiac/Chest: regular rate, rhythm, No edema Abdomen: non-tender, soft, No distended Skin: normal color, warm/dry Lymphatic: no adenopathy Extremities: No pedal edema Neuro/Psych: alert, normal mood/affect, cognition abnormalities ICD10 Worksheet Patient Problems: Problems Problem Status Onset Biventricular heart failure Acute Cardiac arrest Acute Hepatitis C Acute Liver transplant recipient Acute MRSA (methicillin resistant Staphylococcus aureus) Acute ~03/26/17
--- NOTE | 2017-03-30 16:07 | NEUROPROG ---
Assessment: 1. Status post cardiac arrest with HACA 2. Chronic immunosuppression 3. History of malignancy 4. 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 This included reviewing MRI images and interval history. The MRI shows the same right posterior stroke visualized head CT without other areas of subacute infarction, fortunately. I contacted his regarding this finding. He certainly may have a left visual field deficit and/or cognitive sequela from the right medial temporal regions of infarction There is some normal evolution with small punctate hemorrhagic conversion of the infarction. Therefore, switching to SCDs for DVT prophylaxis is reasonable. No further recommendations now. Supportive care. Will continue to follow as needed. Please do not hesitate to contact the neurology service for any questions or changes in neurologic status with this very pleasant patient Subjective: No new symptoms Objective: Vital Signs Temp Pulse Resp BP Pulse Ox 37.0 C 111 H 30 H 113/71 91 L 03/30/17 12:30 03/30/17 15:19 03/30/17 15:19 03/30/17 15:19 03/30/17 15:19 Microbiology 03/20/17 11:00 Mycobacterial Smear (ROBY) - Final Lung Bilateral - Bronchial Washings 03/24/17 12:20 Blood Culture - Final Blood 03/24/17 12:05 Blood Culture - Final Blood Laboratory Results 03/29/17 04:20 03/30/17 06:00 03/29/17 03/30/17 03/31/17 05:59 05:59 05:59 Intake Total 2373 1634 Output Total 1725 2600 850 Balance 648 -966 -850 PT 13.6 SEC (12.0-15.0) 03/25/17 05:00 INR 1.05 (0.83-1.16) 03/25/17 05:00 No convulsive activity Allergies/Adverse Reactions: No Known Allergies Allergy (Unverified 03/20/17 00:36)
--- NOTE | 2017-03-30 18:07 | PCMIDPN ---
Assessment/Plan: Assessment/Plan: * Fever: Fever largely resolved after discontinuation of ertapenem. Suspect this most likely was due to drug fever. Repeat blood cultures are negative. * Pneumonia: BAL with growth of MRSA. Overall continued improvement. Continue vancomycin. 03/30/17 18:05 Subjective: Patient feels better. Still with some cough and shortness of breath but feels like this is less prominent. Objective: Vital Signs Temp Pulse Resp BP Pulse Ox 37.0 C 110 H 26 H 113/71 99 03/30/17 12:30 03/30/17 16:26 03/30/17 16:26 03/30/17 15:19 03/30/17 16:26 Microbiology 03/20/17 11:00 Mycobacterial Smear (ROBY) - Final Lung Bilateral - Bronchial Washings 03/24/17 12:20 Blood Culture - Final Blood 03/24/17 12:05 Blood Culture - Final Blood Laboratory Results 03/29/17 04:20 03/30/17 06:00 03/29/17 03/30/17 03/31/17 05:59 05:59 05:59 Intake Total 2373 1634 Output Total 1725 2600 1150 Balance 648 -966 -1150 Vancomycin # 5 Blood cultures x2 no growth - Physical Exam General Appearance: alert, no apparent distress EENT: No scleral icterus, No thrush Respiratory: wheezing (Bilateral inspiratory) Cardiac/Chest: tachycardia Extremities: No inflammation Abdomen: non-tender, No distended ICD10 Worksheet Patient Problems: Problems Problem Status Onset Biventricular heart failure Acute Cardiac arrest Acute Hepatitis C Acute Liver transplant recipient Acute MRSA (methicillin resistant Staphylococcus aureus) Acute ~03/26/17
[2017-03-30] MEDS: MELATONIN 3 MG TAB PO SCH (21:04)
[2017-03-31] MEDS: ACETYLCYSTEINE 20% IH/PO 30 ML VIAL IH SCH ×4 (01:07→16:24)
[2017-03-31] MEDS: LEVALBUTEROL 1.25 MG/3 ML DEYVIAL IH SCH ×4 (01:08→16:18)
[2017-03-31] MEDS: VANCOMYCIN 1.5 GM in D5W 250 ML IV SCH ×2 (03:56→17:13)
[2017-03-31] MEDS: FAMOTIDINE 20 MG TAB TUBE SCH ×2 (08:55→21:40)
[2017-03-31] MEDS: TACROLIMUS 1 MG CAP TUBE SCH ×2 (08:55→21:39)
[2017-03-31] MEDS: AMIODARONE HCL 200 MG TAB TUBE SCH (08:55)
[2017-03-31] MEDS ORDERED: FUROSEMIDE 20 MG/2 ML VIAL IVP SCH (09:00)
[2017-03-31 09:34] LABS: CLOSTRIDIUM DIFFICILE DNA POSITIVE (NEGATIVE)
[2017-03-31 09:38] LABS: PRINT OR CALL CRITICALS TECH CALL
--- NOTE | 2017-03-31 10:06 | PCMIDPN ---
Assessment/Plan: # fever, unclear etiology. Seemed to subside with discontinuation of ertapenem. But yesterday patient with bowel incontinence of liquid stool and today found to have C diff. # Diarrhea /C diff. Patient reports remotej prior history, 10 years ago. --Will start vancomycin 125 mg p.o. four times daily, plan 14 days after discontinuation of IV vancomycin # pneumonia versus volume overload, BAL showed MRSA. --Plan 7 days of vancomycin. Day 6 today, stop tomorrow, MAR adjusted Medications vancomycin 1.5 g IV Q 12, # 6, Microbiology Sputum culture: rare MRSA ROBY to vancomycin =1 03/19, 03/24 blood cx (2) negative 03/28 blood cx (2) NGTD Subjective: Patient reports feeling slightly worse from a pulmonary perspective this a.m. Objective: Vital Signs Temp Pulse Resp BP Pulse Ox 36.3 C 104 H 21 H 112/73 100 03/31/17 07:58 03/31/17 07:58 03/31/17 07:58 03/31/17 07:58 03/31/17 07:58 Microbiology 03/20/17 11:00 Mycobacterial Smear (ROBY) - Final Lung Bilateral - Bronchial Washings Laboratory Results 03/29/17 04:20 03/30/17 06:00 03/30/17 03/31/17 04/01/17 05:59 05:59 05:59 Intake Total 1634 1350 Output Total 2600 1450 300 Balance -966 -100 -300 - Physical Exam General Appearance: alert, no apparent distress, thin EENT: pale conjunctiva, other (Some coating of the tongue, not clearly thrush, continue to monitor) Respiratory: coarse breath sounds Cardiac/Chest: regular rate, rhythm Extremities: pedal edema (Trace) Abdomen: non-tender, soft Skin: No rash Neuro/Psych: alert, normal mood/affect, oriented x 3 - Line/s RUE PICC Lines: No drainage, No erythema - Time Spent With Patient Time Spent with Patient: greater than 35 minutes (Coordination of care with Dr. Walker) Time Spent with Patient: Greater than 35 minutes spent on this patients care, greater than 50% of time spent counseling, educating, and coordinating care regarding the above mentioned plan. ICD10 Worksheet Patient Problems: Problems Problem Status Onset Biventricular heart failure Acute Cardiac arrest Acute Hepatitis C Acute Liver transplant recipient Acute MRSA (methicillin resistant Staphylococcus aureus) Acute ~03/26/17
[2017-03-31 10:26] LABS: MAGNESIUM 1.9 mg/dL (1.6-2.3)
[2017-03-31 10:35] LABS: IONIZED CALCIUM 1.19 MMOL/L (1.12-1.30)
[2017-03-31] MEDS: VANCOMYCIN 125 MG/2.5 ML UDL PO SCH ×3 (11:37→21:39)
--- NOTE | 2017-03-31 14:48 | NEUROPROG ---
Assessment: 1. Status post cardiac arrest with HACA 2. Chronic immunosuppression 3. History of malignancy 4. 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 This included reviewing MRI images and interval history. The MRI shows the same right posterior stroke visualized head CT without other areas of subacute infarction, fortunately. The patient was awake, alert and lucid today. Therefore, I followed up to review the MRI brain with the patient directly. We reviewed the region of stroke and possible deficits going forward. He does have some haziness in his left visual field. We discussed stroke recovery, prognosis and the time scale of recovery over the next few months. No further recommendations now. Supportive care. Will continue to follow as needed. Please do not hesitate to contact the neurology service for any questions or changes in neurologic status with this very pleasant patient Subjective: No new symptoms Objective: Vital Signs Temp Pulse Resp BP Pulse Ox 36.4 C 104 H 26 H 117/76 89 L 03/31/17 11:26 03/31/17 11:26 03/31/17 11:26 03/31/17 11:26 03/31/17 11:26 Microbiology 03/20/17 11:00 Mycobacterial Smear (ROBY) - Final Lung Bilateral - Bronchial Washings Laboratory Results 03/29/17 04:20 03/30/17 06:00 03/30/17 03/31/17 04/01/17 05:59 05:59 05:59 Intake Total 1634 1350 Output Total 2600 1450 300 Balance -966 -100 -300 PT 13.6 SEC (12.0-15.0) 03/25/17 05:00 INR 1.05 (0.83-1.16) 03/25/17 05:00 Awake and alert No aphasia There was some haziness in the left visual disla when testing with confrontation Allergies/Adverse Reactions: No Known Allergies Allergy (Unverified 03/20/17 00:36)
--- NOTE | 2017-03-31 15:41 | HOSPPROG ---
Hospitalist Progress Note Assessment/Plan: First encounter with this patient 41 yo M w complex history of poole's sarcoma, liver failure s/p transplant 2/2 hep C, and nonischemic cardiomyopathy. Admitted with OOH cardiac arrest s/p HACA. Extubated 03/23/2017, re-intubated 03/24/2017 early am due respiratory distress. Extubated again 03/26/2017, continues to have some respiratory distress with increased oxygen needs overnight. Discussed in multi- disciplinary rounds with pulmonology # cardiac arrest: presumed arrhythmogenic as opposed to ischemic given known NICM. Previous EF 30-35%, was 10-15% on post-arrest echo, repeat echo 03/24 shows EF up to 20-25% (on dobutamine for inotropic support). neurologically intact. * off dobutamine * reviewed cardiology notes, discussed with Dr. Kimbrough * Lasix was decreased yesterday, he is symptomatic and I will increase it to Lasix 20mg BID today. # on CT, confirmed with MRI. Evidence of slight hemosiderin deposits consistent mild bleed appreciate Neurology consult. Lovenox has been held. He has SCD's. # NICM: possibly secondary to cardiotoxicity from chemo during tx for Poole's sarcoma as a child * will need beta-luther and JACEK-inhibitor prior to discharge. 2 and stable at this time to initiate. * AICD prior to discharge, Afebril since early 03/29, but has newly diagnosed C -Diff per below. # CDiff Colitis: new onset. PCR + 03/31. On PO Vancomycin x 14days after stopping IV vancomycin. # Fever: Likely drug fever from Invanz, patient has been afebrile since around midnight on 03/28. Cultures all negative # Acute hypoxemic respiratory failure secondary to cardiac arrest and acute systolic HF - oxygen saturations have been improving. Increasing Lasix per above. # Aspiration PNA: Pt developed fevers after several days of coverage with Ertapenem. BCx's ngtd. MRSA on recent BAL Cx. * Vanco L OT per ID * Speech eval * Last day of Vanco is likely tomorrow per ID # VT: personally reviewed telemetry * cont amiodarone, AICD when patient is stable # Insomnia: diff sleeping, not responded to ativan. #liver transplant: H/O Hep C secondary to transfusions during chemo tx for poole 's. continue tacrolimus * Adjusting tacrolimus. FEN: tube feeds at goal Plan: -IV Vanco -PO Vanco -Increase Lasix -CXR tomorrow -Needs AICD but C-Diff is new diagnosis Dispo: keep inpatient Subjective: Feels SOB, no further diarrhea. PO vancomycin started yesterday Objective: Vital Signs Temp Pulse Resp BP Pulse Ox 36.4 C 104 H 26 H 117/76 89 L 03/31/17 11:26 03/31/17 11:26 03/31/17 11:26 03/31/17 11:26 03/31/17 11:26 Microbiology 03/20/17 11:00 Mycobacterial Smear (ROBY) - Final Lung Bilateral - Bronchial Washings Laboratory Results 03/29/17 04:20 03/30/17 06:00 03/30/17 03/31/17 04/01/17 05:59 05:59 05:59 Intake Total 1634 1350 Output Total 2600 1450 300 Balance -966 -100 -300 PT 13.6 SEC (12.0-15.0) 03/25/17 05:00 INR 1.05 (0.83-1.16) 03/25/17 05:00 - Physical Exam Constitutional: no apparent distress, appears nourished Eyes: PERRL, EOMI Ears, Nose, Mouth, Throat: moist mucous membranes, hearing normal Cardiovascular: regular rate and rhythym, edema (trace), No JVD Respiratory: reduced air movement, rhonchi Gastrointestinal: soft, non-tender abdomen Genitourinary: no bladder fullness Skin: warm, normal color Neurologic: AAOx3, CN II-XII Intact Psychiatric: interacting appropriately, not anxious ICD10 Worksheet Patient Problems: Problems Problem Status Onset Biventricular heart failure Acute Cardiac arrest Acute Hepatitis C Acute Liver transplant recipient Acute MRSA (methicillin resistant Staphylococcus aureus) Acute ~03/26/17
[2017-03-31] MEDS: FUROSEMIDE 20 MG/2 ML VIAL IVP SCH (17:13)
[2017-03-31 20:04] LABS: POTASSIUM 3.8 mEq/L (3.5-5.2)
[2017-03-31] MEDS: MELATONIN 3 MG TAB PO SCH (21:39)
[2017-03-31] MEDS ORDERED: ACETAMINOPHEN 325 MG TAB PO PRN (22:26)
[2017-03-31] MEDS ORDERED: diphenhydrAMINE 25 MG CAP PO PRN (22:27)
[2017-04-01] MEDS: LEVALBUTEROL 1.25 MG/3 ML DEYVIAL IH SCH ×5 (00:27→23:56)
[2017-04-01] MEDS: VANCOMYCIN 1.5 GM in D5W 250 ML IV SCH ×2 (03:39→16:34)
[2017-04-01] MEDS: VANCOMYCIN 125 MG/2.5 ML UDL PO SCH ×4 (05:32→22:00)
[2017-04-01 06:07] LABS: % IMMATURE GRANULYOCYTES 1.2 % (0.0-1.1); ABSOLUTE IMMATURE GRANULOCYTES 0.09 10^3/uL (0.00-0.10); ADD DIFF? NO; ADD MORPH? NO; ADD SCAN? NO; ATYPICAL LYMPHOCYTE FLAG 50 (0-99); FRAGMENT RBC FLAG 0 (0-99); HEMATOCRIT 36.4 % (40.0-51.0); LEFT SHIFT FLG 0 (0-99); LIPEMIA HEMOLYSIS FLAG 80 (0-99); MEAN CELL HEMOGLOBIN 30.4 pg (27.9-34.1); MEAN CELL VOLUME 92.2 fL (81.5-99.8); MEAN PLATELET VOLUME 9.9 fL (8.7-11.7); PLATELET CLUMPS FLAG 10 (0-99); PLATELET COUNT 258 10^3/uL (150-400); RED BLOOD CELL COUNT 3.95 10^6/uL (4.40-6.38); RED CELL DISTRIBUTION WIDTH 13.4 % (11.5-15.2)
[2017-04-01 06:17] LABS: ANION GAP 11 mEq/L (8-16); CALCIUM 9.1 mg/dL (8.5-10.4); CARBON DIOXIDE 27 mEq/l (22-31); CHLORIDE 99 mEq/L (97-110); CREATININE 1.1 mg/dL (0.7-1.3); GLOMERULAR FILTRATION RATE > 60; GLUCOSE 107 mg/dL (70-100); POTASSIUM 3.7 mEq/L (3.5-5.2); SODIUM 137 mEq/L (134-144)
[2017-04-01] MEDS: ACETYLCYSTEINE 20% IH/PO 30 ML VIAL IH SCH ×5 (06:31→23:56)
[2017-04-01] MEDS: FUROSEMIDE 20 MG/2 ML VIAL IVP SCH (09:03)
[2017-04-01] MEDS: TACROLIMUS 1 MG CAP PO SCH ×2 (09:03→22:01)
[2017-04-01] MEDS: AMIODARONE HCL 200 MG TAB PO SCH (09:03)
[2017-04-01] MEDS: FAMOTIDINE 20 MG TAB PO SCH ×2 (09:03→22:01)
--- NOTE | 2017-04-01 09:31 | PCMIDPN ---
Assessment/Plan: # fever, unclear etiology, now resolved. Seemed to subside with discontinuation of ertapenem. Now known to have Cdiff. # Diarrhea /C diff. Patient reports remotej prior history, 10 years ago. --Cont vancomycin 125 mg p.o. four times daily, plan 14 days after discontinuation of IV vancomycin # possible MRSA pneumonia + volume overload. Cr up a bit today to 1.1 and vancomycin trough high at 21. Continued respiratory symptoms likely related to volume and/or asthma. --hold next dose of vancomycin, decreased to 1 g IV Q 12 through tomorrow's defibrillator placement and then will discontinue # Safety of Defib placement: okay to place at any time. --Would continue vancomycin as perioperative prophylaxis for defibrillator as known MRSA # Possible thrush: start nystatin s/s Medications vancomycin 1.5 g IV Q 12, # 7, Microbiology Sputum culture: rare MRSA ROBY to vancomycin =1 03/19, 03/24 blood cx (2) negative 03/28 blood cx (2) NGTD Subjective: patient feeling slightly better today no further diarrhea Objective: Vital Signs Temp Pulse Resp BP Pulse Ox 36.4 C 96 18 114/71 94 04/01/17 08:00 04/01/17 08:00 04/01/17 08:00 04/01/17 08:00 04/01/17 08:00 Laboratory Results 04/01/17 05:45 04/01/17 05:45 03/31/17 04/01/17 04/02/17 05:59 05:59 05:59 Intake Total 1350 780 Output Total 1450 1120 Balance -100 -340 General Appearance: alert, no apparent distress, thin EENT: pale conjunctiva, coating of tongue ?thrush Respiratory: coarse breath sounds Cardiac/Chest: regular rate, rhythm Extremities: pedal edema, Trace Abdomen: non-tender, soft Skin: No rash Neuro/Psych: alert, normal mood/affect, oriented x 3 RUE PICC:No drainage, No erythema Time Spent with Patient: Greater than 35 minutes spent on this patients care, greater than 50% of time spent counseling, educating, and coordinating care regarding the above mentioned plan, Care coordinated with Dr. Chairez. ICD10 Worksheet Patient Problems: Problems Problem Status Onset Biventricular heart failure Acute Cardiac arrest Acute Hepatitis C Acute Liver transplant recipient Acute MRSA (methicillin resistant Staphylococcus aureus) Acute ~03/26/17
[2017-04-01] MEDS ORDERED: PROTOCOL POTASSIUM 1 DOSE MISC PRN (15:56)
[2017-04-01] MEDS ORDERED: PROTOCOL MAGNESIUM 1 DOSE IV PRN (15:56)
--- NOTE | 2017-04-01 16:04 | HOSPPROG ---
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 Admitted with OOH cardiac arrest s/p HACA. Extubated 03/23/2017, re-intubated 03/24/2017 early am due respiratory distress. Extubated again 03/26/2017 Lasix was increased to BID dosing yesterday and his respiratory status is much improved today. He is comfortably on 2L O2. Unfortunately BUN and Cr have increased and he appears slightly dry on exam. Will hold IV Lasix today and transition to once daily oral lasix starting in the morning. He may need BID dosing. From a pneumonia perspective, he has completed treatment. He is scheduled for AICD placement tomorrow at 3pm. and per ID, we will continue with IV Vanc through the surgery and can be stopped after. His C-Diff colitis is improving and he will need a 14 day course of PO Vanco once the IV vanc is discontinued. # cardiac arrest: presumed arrhythmogenic as opposed to ischemic given known NICM. Previous EF 30-35%, was 10-15% on post-arrest echo, repeat echo 03/24 shows EF up to 20-25% (on dobutamine for inotropic support). neurologically intact. * off dobutamine * Lasix per above # on CT, confirmed with MRI. Evidence of slight hemosiderin deposits consistent mild bleed appreciate Neurology consult. Lovenox has been held. He has SCD's. # NICM: possibly secondary to cardiotoxicity from chemo during tx for Poole's sarcoma as a child * will need beta-luther and JACEK-inhibitor prior to discharge. 2 and stable at this time to initiate. * AICD prior to discharge, scheduled for tomorrow # CDiff Colitis: new onset. PCR + 03/31. On PO Vancomycin x 14days after stopping IV vancomycin. # Fever: Likely drug fever from Invanz, patient has been afebrile since around midnight on 03/28. Cultures all negative # Acute hypoxemic respiratory failure secondary to cardiac arrest and acute systolic HF - oxygen saturations have been improving. # Aspiration PNA: Pt developed fevers after several days of coverage with Ertapenem. BCx's ngtd. MRSA on recent BAL Cx. * Vanco L OT per ID * Speech eval * duration per above # VT: personally reviewed telemetry * cont amiodarone, AICD when patient is stable # Insomnia: diff sleeping, not responded to ativan. #liver transplant: H/O Hep C secondary to transfusions during chemo tx for poole 's. continue tacrolimus * Adjusting tacrolimus. FEN: tube feeds at goal Subjective: SOB has improved. BUN has increased Objective: Vital Signs Temp Pulse Resp BP Pulse Ox 36.8 C 95 20 103/69 99 04/01/17 11:38 04/01/17 13:00 04/01/17 11:57 04/01/17 11:38 04/01/17 13:00 Laboratory Results 04/01/17 05:45 04/01/17 05:45 03/31/17 04/01/17 04/02/17 05:59 05:59 05:59 Intake Total 1350 780 Output Total 1450 1120 600 Balance -100 -340 -600 PT 13.6 SEC (12.0-15.0) 03/25/17 05:00 INR 1.05 (0.83-1.16) 03/25/17 05:00 - Physical Exam Constitutional: no apparent distress, not in pain Eyes: PERRL, EOMI Ears, Nose, Mouth, Throat: moist mucous membranes, hearing normal Cardiovascular: regular rate and rhythym Respiratory: reduced air movement Gastrointestinal: normoactive bowel sounds, soft, non-tender abdomen Skin: warm Neurologic: AAOx3 Psychiatric: interacting appropriately, not anxious ICD10 Worksheet Patient Problems: Problems Problem Status Onset Biventricular heart failure Acute Cardiac arrest Acute Hepatitis C Acute Liver transplant recipient Acute MRSA (methicillin resistant Staphylococcus aureus) Acute ~03/26/17
[2017-04-01] MEDS ORDERED: POTASSIUM Cl (KCl) 50 ML IV ONE (16:08)
[2017-04-01] MEDS: NYSTATIN SUSP 500000 UNIT/5 ML UDCUP PO SCH (22:00)
[2017-04-01] MEDS: MELATONIN 3 MG TAB PO SCH (22:01)
[2017-04-02 04:27] LABS: % IMMATURE GRANULYOCYTES 1.3 % (0.0-1.1); ABSOLUTE IMMATURE GRANULOCYTES 0.09 10^3/uL (0.00-0.10); ADD DIFF? NO; ADD MORPH? NO; ADD SCAN? NO; ATYPICAL LYMPHOCYTE FLAG 20 (0-99); FRAGMENT RBC FLAG 0 (0-99); HEMATOCRIT 38.6 % (40.0-51.0); HEMOGLOBIN 12.9 g/dL (13.7-17.5); LEFT SHIFT FLG 10 (0-99); LIPEMIA HEMOLYSIS FLAG 80 (0-99); MEAN CELL HEMOGLOBIN 30.4 pg (27.9-34.1); MEAN CELL HEMOGLOBIN CONCENTR. 33.4 g/dL (32.4-36.7); MEAN CELL VOLUME 90.8 fL (81.5-99.8); MEAN PLATELET VOLUME 9.3 fL (8.7-11.7); PLATELET CLUMPS FLAG 20 (0-99); PLATELET COUNT 307 10^3/uL (150-400); RED BLOOD CELL COUNT 4.25 10^6/uL (4.40-6.38); RED CELL DISTRIBUTION WIDTH 13.6 % (11.5-15.2)
[2017-04-02 04:38] LABS: INR 1.21 (0.83-1.16); PROTIME(PATIENT) 15.3 SEC (12.0-15.0)
[2017-04-02 04:39] LABS: APTT 24.2 SEC (23.0-38.0)
[2017-04-02 04:46] LABS: ALANINE AMINOTRANSFERASE 73 IU/L (21-72); ALBUMIN 3.1 g/dL (3.5-5.0); ALKALINE PHOSPHATASE 169 IU/L (38-126); ANION GAP 11 mEq/L (8-16); ASPARTATE AMINOTRANSFERASE 62 IU/L (17-59); BILIRUBIN,TOTAL 1.3 mg/dL (0.1-1.4); CALCIUM 9.2 mg/dL (8.5-10.4); CARBON DIOXIDE 27 mEq/l (22-31); CHLORIDE 100 mEq/L (97-110); CREATININE 1.2 mg/dL (0.7-1.3); GLOMERULAR FILTRATION RATE > 60; GLUCOSE 112 mg/dL (70-100); MAGNESIUM 1.8 mg/dL (1.6-2.3); POTASSIUM 4.1 mEq/L (3.5-5.2); SODIUM 138 mEq/L (134-144); TOTAL PROTEIN 6.9 g/dL (6.3-8.2)
[2017-04-02] MEDS: LEVALBUTEROL 1.25 MG/3 ML DEYVIAL IH SCH ×4 (06:11→21:02)
[2017-04-02] MEDS: ACETYLCYSTEINE 20% IH/PO 30 ML VIAL IH SCH ×4 (06:11→21:02)
[2017-04-02] MEDS ORDERED: VANCOMYCIN HCL/NORMAL SALINE 250 ML IV ONE (06:15)
[2017-04-02] MEDS: NYSTATIN SUSP 500000 UNIT/5 ML UDCUP PO SCH ×4 (06:20→21:44)
[2017-04-02] MEDS: VANCOMYCIN 125 MG/2.5 ML UDL PO SCH ×4 (06:20→21:44)
[2017-04-02] MEDS ORDERED: BUPIVACAINE 0.5% 30 ML SDV ONE (06:24)
[2017-04-02] MEDS ORDERED: IOPAMIDOL (ISOVUE-300) 100 ML BTL ONE (06:24)
[2017-04-02] MEDS: VANCOMYCIN HCL/NORMAL SALINE 250 ML IV SCH ×2 (06:24→15:59)
[2017-04-02] MEDS ORDERED: LIDOCAINE 1% 300 MG/30 ML SDV ONE ×2 (06:24→07:12)
[2017-04-02] MEDS ORDERED: MIDAZOLAM 2 MG/2 ML VIAL ONE (07:16)
[2017-04-02] MEDS ORDERED: fentaNYL 100 MCG/2 ML INJ ONE (07:29)
[2017-04-02] MEDS ORDERED: PROPOFOL 200 MG/20 ML VIAL ONE ×2 (07:30→09:35)
[2017-04-02] MEDS ORDERED: IOPAMIDOL (ISOVUE-370) 150 ML BTL IV ONE (09:48)
--- NOTE | 2017-04-02 10:46 | HOSPPROG ---
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 Tacrolimus #Acute hypoxic resp failure: resolved #V fib arrest: s/p HACA #Bi-ventricular HF: EF 20-30% on TTE 03/24. pacer/AICD placed today. Talk with cards about restarting BB, ACEI #C diff: oral vanc #MRSA PNA: completed 7 days IV vanc #Fever: last on 03/28. Completed course abx for PNA. New C diff. Blood culture NGTD #Diet: cardiac #DVT ppx: SCDs #Disp: warrants ongoing inpt admission. Cont telemetry, abx. Subjective: mild pain at pacer site. No CP or SOB Objective: Vital Signs Temp Pulse Resp BP Pulse Ox 36.7 C 100 19 108/73 94 04/02/17 04:00 04/02/17 06:11 04/02/17 06:11 04/02/17 04:00 04/02/17 06:11 Microbiology 03/27/17 18:30 Blood Culture - Final Blood 03/27/17 18:30 Blood Culture - Final Blood Laboratory Results 04/02/17 04:15 04/02/17 04:15 04/01/17 04/02/17 04/03/17 05:59 05:59 05:59 Intake Total 780 1280 Output Total 1120 900 250 Balance -340 380 -250 PT 15.3 SEC (12.0-15.0) H 04/02/17 04:15 INR 1.21 (0.83-1.16) H 04/02/17 04:15 - Physical Exam Constitutional: no apparent distress Eyes: PERRL Ears, Nose, Mouth, Throat: moist mucous membranes, hearing normal Cardiovascular: regular rate and rhythym, other (pacer site MAXINE chest dressed, C/ d/I) Respiratory: no respiratory distress Gastrointestinal: normoactive bowel sounds Genitourinary: no bladder fullness Skin: warm Musculoskeletal: full muscle strength, other (right groin cath without hematoma) Neurologic: AAOx3, CN II-XII Intact Psychiatric: interacting appropriately Lymph, Heme, Immunologic: no cervical LAD ICD10 Worksheet Patient Problems: Problems Problem Status Onset Biventricular heart failure Acute Cardiac arrest Acute Hepatitis C Acute Liver transplant recipient Acute MRSA (methicillin resistant Staphylococcus aureus) Acute ~03/26/17
[2017-04-02] MEDS ORDERED: ATROPINE SULFATE 1 MG/10 ML SYR ONE (11:04)
--- NOTE | 2017-04-02 11:46 | CPEKG ---
Heart Rate: 102 RR Interval: 588 P-R Interval: 148 QRSD Interval: 124 QT Interval: 404 QTC Interval: 527 P Kimberly: 77 QRS Kimberly: 68 T Wave Kimberly: -15 EKG Severity - ABNORMAL ECG - EKG Impression: ATRIAL-SENSED VENTRICULAR-PACED RHYTHM Electronically Signed By: sIaiah Clemens 02-Apr-2017 16:55:07
[2017-04-02] MEDS: HYDROCODONE/APAP 5/325 TAB PO PRN ×2 (13:16→18:08)
[2017-04-02] MEDS: TACROLIMUS 1 MG CAP PO SCH ×2 (13:18→21:44)
[2017-04-02] MEDS: AMIODARONE HCL 200 MG TAB PO SCH (13:20)
[2017-04-02] MEDS: FUROSEMIDE 20 MG TAB PO SCH (13:20)
[2017-04-02] MEDS: FAMOTIDINE 20 MG TAB PO SCH ×2 (13:20→21:43)
[2017-04-02] MEDS ORDERED: MAGNESIUM SULF 1 GM/DEXTROSE 100 ML IV ONE (13:48)
[2017-04-02] MEDS ORDERED: NS 1,000 ML IV ONE (15:00)
[2017-04-02] MEDS ORDERED: BACITRACIN IRRIGATION/NS 50,000 UNITS/1,000 ML BTL IRR ONE (15:00)
--- NOTE | 2017-04-02 17:27 | EPPROC ---
Electrophysiology Procedure Note: PROCEDURE PERFORMED: 1. Implantation of an A-BiV Implantable Cardioverter Defibrillator 2. Subclavian vein angiography 3. Fluoroscopy INDICATION: This is a 41 yr old with LBBB with QRS of 160ms, Cardiomyopathy with EF 20% NYHA class III, who had sudden cardiac and was found to be in VF and was cardioverted from it. He underwent HACA treatment and then recovered completely from it. In view of secondary prevention ICD was needed. Considering his NYHA class III and LBBB with QRS > 150ms he was a candidate for BiV ICD. PROCEDURE NOTE: Patient presented to the cardiac catheterization laboratory in a fasting, post absorptive state. General anesthesia administered by anesthesiologist. The left infraclavicular area was prepped and draped in the usual sterile fashion. Lidocaine plus bupivacaine was used for local anesthesia. Left subclavian venography was performed by injection of iodinated contrast into the left antecubital vein. This was done to assure patency of the vein and also to assess for any anatomical aberrations. Using a combination of blunt and sharp dissection and electrocautery, the dissection was carried down to the prepectoral fascia. Fluoroscopy was utilized during the entire procedure for venous access and placement of the leads Using usual technique, left cephalic vein was access and guidewire was placed. Using a direct stick technique the left extra thoracic axillary vein was accessed with 1 stick using the modified Seldinger technique. Placement of the guide wires into the venous system was confirmed by low pressure blood return and also by visualizing the guide wires advancing into the inferior vena cava. A purse string suture was applied around the guide wires. One 9F sheath was advanced in to the left cephalic vein over the guidewire. An active fixation ventricular ICD lead was advanced into the right ventricular apex and screwed in place. Pacing thresholds, sensing parameters and lead impedances were measured. There was no diaphragmatic stimulation at maximum output. A 9 Armenian sheath was advanced over the guide wire into the subclavian vein. Using a [facility] F[facility] delivery system the coronary sinus ostium was engaged. Occlusion retrograde coronary sinus angiography was performed in three views. A coronary sinus quadripolar lead was advanced into the coronary sinus. An angioplasty wire was advanced through the lead and advanced into the mid portion of the posterolateral branch of the coronary sinus. The lead was advanced over the angioplasty wire. Pacing threshold, sensing and impedance was determined. There was no diaphragmatic stimulation at maximum output. Over prexisting guidewire, an active fixation atrial lead was advanced into the right atrial appendage and screwed in place.The delivery system and the 9 Fr sheath were peeled away. Again, pacing threshold, sensing and impedance was determined. There was no diaphragmatic stimulation at maximum output. The leads were sutured to the prepectoral fascia with 3 nonabsorbable sutures. Pacing threshold and sensing parameters of the RA, RV and LV leads were checked again. Pocket was created. It was flushed using antibiotic solution. The pocket was again inspected for any bleeding. The leads were attached to the pacemaker securely. The ICD was inserted into the pocket and secured in place with a nonabsorbable suture. Fluoroscopy was performed in MORRISON and NORMA planes to verify right sided placement of the leads. Also fluoroscopy of the pacemaker pocket was performed. The ICD pocket was closed in 3 layers with absorbable monocryl sutures. Appropriate dressing was applied. The patient left the cardiac catheterization laboratory in stable condition. Serial Numbers: 1. Device [facility] Fady [id number] [id number] 2. Atrial Lead [facility] F[facility] [id number] 3. Right Ventricular Lead [facility] Fady 7122 Q [id number] 4. Left Ventricular Lead [facility] Fady 1456Q [id number] Stimulation Thresholds & Impedance Measurements: 1. Atrial Lead 4.4mV, 0.8@0.5ms, 425Ohms 2. Right Ventricular Lead 7mV, 0.5@0.5ms, 509Ohms 3. Left Ventricular Lead 10.6mV, 0.6@0.5ms, 833Ohms Sergio Pacing Parameters: 1. Pacing mode DDD 2. Lower rate 60 3. Upper rate 120 Tachycardia therapy parameters: VF zone : Detection 214 bpm First therapy 40 Joule Subsequent therapies 40 Joule VT zone : Detection 188 bpm First therapy burst pacing at 84 %tachycardia CL, 8 beats, 1 sequence. 81% TCL 8beats, 1 sequence Second therapy 40 Joule Subsequent therapies 40 Joule Patient Problems: Problems Problem Status Onset Biventricular heart failure Acute Cardiac arrest Acute Hepatitis C Acute Liver transplant recipient Acute MRSA (methicillin resistant Staphylococcus aureus) Acute ~03/26/17
--- NOTE | 2017-04-02 17:33 | PDDXCAT ---
Diagnostic Cath Note - . Date: 04/02/17 Music Education Director: Caden Indication: Resuscitated from sudden cardiac High-risk criteria on non-invasive testing: severe resting left ventricular dysfunction (LVEF<35%) - Procedure Access: right groin Procedure: left heart catheterization - Materials Left Heart Cath size: 4F Left Heart Cath materials: JL3.5, JR3.5 - Findings-Left Heart Catheterization LM: Normal LAD: Normal LCX: Normal RCA: Normal Estimated blood loss: <50ml Closure method: manual pressure Assessment: Normal coronary arteries Plan: Medical management for cardiomyopathy Patient Problems: Problems Problem Status Onset Biventricular heart failure Acute Cardiac arrest Acute Hepatitis C Acute Liver transplant recipient Acute MRSA (methicillin resistant Staphylococcus aureus) Acute ~03/26/17
[2017-04-02] MEDS: MELATONIN 3 MG TAB PO SCH (21:43)
[2017-04-03] MEDS: HYDROCODONE/APAP 5/325 TAB PO PRN ×4 (01:40→22:04)
[2017-04-03 04:38] LABS: % IMMATURE GRANULYOCYTES 1.3 % (0.0-1.1); ABSOLUTE IMMATURE GRANULOCYTES 0.08 10^3/uL (0.00-0.10); ADD DIFF? NO; ADD MORPH? NO; ADD SCAN? NO; ATYPICAL LYMPHOCYTE FLAG 20 (0-99); FRAGMENT RBC FLAG 0 (0-99); HEMATOCRIT 33.9 % (40.0-51.0); HEMOGLOBIN 10.9 g/dL (13.7-17.5); LEFT SHIFT FLG 0 (0-99); LIPEMIA HEMOLYSIS FLAG 80 (0-99); MEAN CELL HEMOGLOBIN 30.8 pg (27.9-34.1); MEAN CELL HEMOGLOBIN CONCENTR. 32.2 g/dL (32.4-36.7); MEAN CELL VOLUME 95.8 fL (81.5-99.8); MEAN PLATELET VOLUME 9.5 fL (8.7-11.7); PLATELET CLUMPS FLAG 0 (0-99); PLATELET COUNT 243 10^3/uL (150-400); RED BLOOD CELL COUNT 3.54 10^6/uL (4.40-6.38); RED CELL DISTRIBUTION WIDTH 13.6 % (11.5-15.2)
[2017-04-03 04:52] LABS: ANION GAP 9 mEq/L (8-16); CALCIUM 8.8 mg/dL (8.5-10.4); CARBON DIOXIDE 25 mEq/l (22-31); CHLORIDE 103 mEq/L (97-110); GLOMERULAR FILTRATION RATE > 60; GLUCOSE 107 mg/dL (70-100); POTASSIUM 4.3 mEq/L (3.5-5.2); SODIUM 137 mEq/L (134-144)
[2017-04-03] MEDS: LEVALBUTEROL 1.25 MG/3 ML DEYVIAL IH SCH ×3 (05:33→16:43)
[2017-04-03] MEDS: ACETYLCYSTEINE 20% IH/PO 30 ML VIAL IH SCH ×3 (05:33→16:43)
[2017-04-03] MEDS: NYSTATIN SUSP 500000 UNIT/5 ML UDCUP PO SCH ×4 (06:45→22:03)
[2017-04-03] MEDS: VANCOMYCIN 125 MG/2.5 ML UDL PO SCH ×4 (06:45→22:03)
[2017-04-03] MEDS: FAMOTIDINE 20 MG TAB PO SCH ×2 (08:54→22:03)
[2017-04-03] MEDS: AMIODARONE HCL 200 MG TAB PO SCH (08:54)
[2017-04-03] MEDS: FUROSEMIDE 20 MG TAB PO SCH (08:54)
[2017-04-03] MEDS: TACROLIMUS 1 MG CAP PO SCH ×2 (09:00→22:04)
--- NOTE | 2017-04-03 09:18 | HOSPPROG ---
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 Tacrolimus #Acute hypoxic resp failure: resolved #V fib arrest: s/p HACA #Bi-ventricular HF: EF 20-30% on TTE 03/24. pacer/AICD placed today. Talk with cards about restarting BB, ACEI #C diff: oral vanc #MRSA PNA: completed 7 days IV vanc #Fever: last on 03/28. Completed course abx for PNA. New C diff. Blood culture NGTD #Diet: cardiac #DVT ppx: SCDs #Disp: warrants ongoing inpt admission. Cont telemetry, abx. Objective: Vital Signs Temp Pulse Resp BP Pulse Ox 37.2 C 90 20 107/63 99 04/03/17 05:10 04/03/17 05:10 04/03/17 05:34 04/03/17 05:10 04/03/17 05:34 Laboratory Results 04/03/17 04:13 04/03/17 04:13 04/02/17 04/03/17 04/04/17 05:59 05:59 05:59 Intake Total 1280 450 Output Total 900 750 Balance 380 -300 PT 15.3 SEC (12.0-15.0) H 04/02/17 04:15 INR 1.21 (0.83-1.16) H 04/02/17 04:15 ICD10 Worksheet Patient Problems: Problems Problem Status Onset Biventricular heart failure Acute Cardiac arrest Acute Hepatitis C Acute Liver transplant recipient Acute MRSA (methicillin resistant Staphylococcus aureus) Acute ~03/26/17
--- NOTE | 2017-04-03 09:48 | PDCARPN ---
Cardiology Progress Note Chief Complaint: Sudden Cardiac Arrest, V-Fib, cardioverted. Assessment/Plan: Assessment: 1. Sudden cardiac arrest, V-Fib arrest successfully cardioverted, PEA post shock , HACA. 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 History of Hepatic Transplant on immunosuppressant therapy. 3. Bacteremia, just completed 7 days of Vanco. 4. CARDIOMYOPATHY Echo (03/19) confirmed EF at 20 to 25%. Hospitalist will start cardiomyopathy medical regime with Coreg 3.25 BID and Lisinopril (JACEK-I) QD. 5. LHC yesterday (04/02) normal Cors. EF 20%. Right groin incision site. 6. BIV-ICD placed (04/02) INDICATION: NYHA class III and LBBB with QRS>150ms, Cardiomyopathy w/ EF 20%, Sudden cardiac , VF, Cardioverted. 7. [facility] Fady BIV-ICD placed 04/02/17 with no complications. Device checked this morning and functioning normal. Remote monitor set up by Jerry gould/ [facility]. 8. Incision site Left Pec is intact with pressure dressing intact w/no bleeding , or ecchymosis. Area slightly swollen, and tender. Responding well to analgesic. 9. [facility] Fady Pacing Parameters: 1. Pacing Mode DDD. 2. Lower rate 60. 3. Upper rate 120. Tachycardia therapy parameters: 1. VF Zone---Detection 214 bpm, First therapy 40J---Subsequent therapies 40J. 2. VT Zone---Detection 188, First therapy burst pacing at 84 % tachy CL, 8 beats, 1 sequence. 81% TCL 8beats , 1 seq. Second therapy 40J, Subsequent therapies 40 J. 10. CXR to be done. Order is in place. If abnormal notify Cardiology. 11. MRSA C-Diff -- Bld cultures negative. Plan: Recommend initiating Cardiomyopathy medical therapy with Coreg 3.12 mg BID , and Lisinopril 2.5 mg QD. Spoke with Olga Pierre MD Hospitalist. Pacer Site management: Ok to place clean pressure dressing. Leave dressing in place for one week. Observe for signs of hematoma, or infection. Avoid using Left arm above shoulder and no lifting or pulling for 10 days. In one week dressing off, and Sutures out in 7 days. OK to shower lower half of body. Put plastic cover over left upper chest to protect site from getting wet, and secure tightly w/tape. 04/03/17 09:53 04/03/17 10:37 Subjective: My incision is tender. Pain medication is helping Reviewed/Discussed With: hospitalist, multidisciplinary team, other (Checo Saucedo MD) Time Spent With Patient: 20 minutes Objective: Vital Signs (8 Hrs) Temp Pulse Resp BP Pulse Ox 04/03/17 05:34 20 99 04/03/17 05:10 37.2 C 90 18 107/63 92 Intake/Output (24 Hrs) 04/02/17 04/03/17 04/04/17 05:59 05:59 05:59 Intake Total 1280 450 Output Total 900 750 Balance 380 -300 Intake: Oral (ml) 1220 450 IV Infused (ml) 60 POTASSIUM Cl (KCl) 50 ml 60 @ 50 mls/hr IV ONCE ONE Rx#:[id number] Output: Urine (ml) 900 750 Toilet 300 Urinal 600 750 Other: Intake Quantity Yes Sufficient Number of Voids Toilet 1 Urinal 1 Number of Stools Toilet 1 Result Diagrams: 04/03/17 04:13 04/03/17 04:13 Telemetry: A-paced V-Sensed Rhythm - Physical Exam Constitutional: WDWN, no apparent distress Cardiovascular: regular rate and rhythm, no murmurs, no gallops Peripheral Pulses: 2+: dorsalis-pedis (R), dorsalis-pedis (L) Respiratory: No no crackles (crackles throughout Poli lungs), No expiratory wheeze Skin: warm, no edema Neurologic: AAOx3 Psychiatric: cooperative, interactive ICD10 Worksheet Patient Problems: Problems Problem Status Onset Biventricular heart failure Acute Cardiac arrest Acute Hepatitis C Acute Liver transplant recipient Acute MRSA (methicillin resistant Staphylococcus aureus) Acute ~03/26/17
[2017-04-03] MEDS: LISINOPRIL 2.5 MG TAB PO SCH (10:50)
[2017-04-03] MEDS: CARVEDILOL 3.125 MG TAB PO SCH ×2 (10:51→17:13)
--- NOTE | 2017-04-03 12:18 | PCMIDPN ---
Assessment/Plan: 1. Probable history of MRSA pneumonia: Patient was treated with 7 days of intravenous vancomycin, which was discontinued yesterday afternoon after an AICD was implanted. The importance of pulmonary toilet was stressed to the patient today. 2. History of C difficile colitis: Patient's diarrhea has stopped. Continue oral vancomycin 125 four times daily through April 15. Subjective: Taking a sponge bath. is present in room. Still having some cough, but no shortness of breath. AICD implanted yesterday. Objective: Oral vancomycin 125 four times daily through April 15 Afebrile Vital Signs Temp Pulse Resp BP Pulse Ox 37.2 C 90 20 107/63 99 04/03/17 05:10 04/03/17 05:10 04/03/17 05:34 04/03/17 05:10 04/03/17 05:34 Laboratory Results 04/03/17 04:13 04/03/17 04:13 04/02/17 04/03/17 04/04/17 05:59 05:59 05:59 Intake Total 1280 450 Output Total 900 750 Balance 380 -300 - Physical Exam General Appearance: alert, no apparent distress Respiratory: wheezing (Few end-expiratory wheezes throughout all lung disla. Diminished breath sounds. Poor inspiratory effort.) Cardiac/Chest: other (Small incision left upper chest covered.) Skin: No rash ICD10 Worksheet Patient Problems: Problems Problem Status Onset Biventricular heart failure Acute Cardiac arrest Acute Hepatitis C Acute Liver transplant recipient Acute MRSA (methicillin resistant Staphylococcus aureus) Acute ~03/26/17
--- NOTE | 2017-04-03 15:33 | HOSPPROG ---
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 Plan for rehab at [facility] #h/o liver transplant: on chronic immunosuppression. Tacrolimus #Acute hypoxic resp failure: resolved #V fib arrest: s/p HACA #Bi-ventricular HF: EF 20-30% on TTE 03/24. pacer/AICD placed 04/02. Restart low- dose BB, ACEI today. Monitor BP and for symptoms #C diff: oral vanc through April 15 #MRSA PNA: completed 7 days IV vanc #Fever: last on 03/28. Completed course abx for PNA. New C diff. Blood culture NGTD #Diet: cardiac #DVT ppx: SCDs #Disp: warrants ongoing inpt admission. Cont telemetry, abx. Likely DC Wednesday if clinically stable Subjective: No CP. Dizzy if stands up too quickly Objective: Vital Signs Temp Pulse Resp BP Pulse Ox 36.8 C 104 H 14 99/67 L 100 04/03/17 12:00 04/03/17 13:28 04/03/17 13:28 04/03/17 13:28 04/03/17 13:28 Laboratory Results 04/03/17 04:13 04/03/17 04:13 04/02/17 04/03/17 04/04/17 05:59 05:59 05:59 Intake Total 1280 450 Output Total 900 750 Balance 380 -300 PT 15.3 SEC (12.0-15.0) H 04/02/17 04:15 INR 1.21 (0.83-1.16) H 04/02/17 04:15 - Physical Exam Constitutional: other (thin, NAD) Eyes: PERRL Ears, Nose, Mouth, Throat: moist mucous membranes, hearing normal Cardiovascular: regular rate and rhythym, no murmur, rub, or gallop, edema (no LE edema) Respiratory: no respiratory distress, no rales or rhonchi Gastrointestinal: normoactive bowel sounds, soft, non-tender abdomen Genitourinary: no bladder fullness Skin: warm Musculoskeletal: other (pacer site dressed C/D/I. No hematoma) Neurologic: AAOx3, CN II-XII Intact Psychiatric: interacting appropriately ICD10 Worksheet Patient Problems: Problems Problem Status Onset Biventricular heart failure Acute Cardiac arrest Acute Hepatitis C Acute Liver transplant recipient Acute MRSA (methicillin resistant Staphylococcus aureus) Acute ~03/26/17
[2017-04-03 18:48] LABS: POTASSIUM 4.2 mEq/L (3.5-5.2)
[2017-04-03] MEDS: MELATONIN 3 MG TAB PO SCH (22:03)
[2017-04-04] MEDS: ACETYLCYSTEINE 20% IH/PO 30 ML VIAL IH SCH ×5 (00:31→23:14)
[2017-04-04] MEDS: LEVALBUTEROL 1.25 MG/3 ML DEYVIAL IH SCH ×5 (00:31→23:14)
[2017-04-04 05:37] LABS: ANION GAP 9 mEq/L (8-16); CALCIUM 9.1 mg/dL (8.5-10.4); CARBON DIOXIDE 22 mEq/l (22-31); CHLORIDE 104 mEq/L (97-110); CREATININE 0.9 mg/dL (0.7-1.3); GLOMERULAR FILTRATION RATE > 60; GLUCOSE 88 mg/dL (70-100); MAGNESIUM 1.5 mg/dL (1.6-2.3); POTASSIUM 4.5 mEq/L (3.5-5.2); SODIUM 135 mEq/L (134-144)
[2017-04-04] MEDS: VANCOMYCIN 125 MG/2.5 ML UDL PO SCH ×4 (06:46→21:16)
[2017-04-04] MEDS: NYSTATIN SUSP 500000 UNIT/5 ML UDCUP PO SCH ×4 (06:46→21:15)
[2017-04-04] MEDS: HYDROCODONE/APAP 5/325 TAB PO PRN ×2 (06:53→17:51)
--- NOTE | 2017-04-04 08:25 | HOSPPROG ---
Hospitalist Progress Note Assessment/Plan: #V fib arrest: s/pp HACA #Severe nonischemic cardiomyopathy -no e/o arrhythmia. Pacer placed, small hematoma -tolerating ACEI, BB. These will need to be uptitrated per his Suction Worker. Cont Lasix. Consider Aldactone in future #MRSA PNA: completed 7-days vanc #C diff: oral vanc through April 15 #Acute hypoxic resp failure: resolved #h/o liver transplant: Tacrolimus #Fever: resolved #Hypomagnesium: replete #Diet: cardiac #DVT ppx: Lovenox #Disp: cont inpt admission for telemetry, monitor BP. Consider DC to [facility] if cleared by Cardiology Subjective: no dizziness, CP or SOB Objective: Vital Signs Temp Pulse Resp BP Pulse Ox 36.9 C 90 20 115/70 93 04/04/17 04:00 04/04/17 05:37 04/04/17 05:37 04/04/17 04:00 04/04/17 04:00 Laboratory Results 04/03/17 04:13 04/04/17 04:15 04/03/17 04/04/17 04/05/17 05:59 05:59 05:59 Intake Total 450 490 Output Total 750 850 Balance -300 -360 PT 15.3 SEC (12.0-15.0) H 04/02/17 04:15 INR 1.21 (0.83-1.16) H 04/02/17 04:15 - Physical Exam Constitutional: no apparent distress, other (very thin) Eyes: PERRL Ears, Nose, Mouth, Throat: moist mucous membranes, hearing normal Cardiovascular: regular rate and rhythym, edema (none), other (small hematoma at pacer site) Respiratory: no respiratory distress, no rales or rhonchi Gastrointestinal: normoactive bowel sounds, soft, non-tender abdomen Genitourinary: no bladder fullness Skin: warm Musculoskeletal: full muscle strength Neurologic: AAOx3, CN II-XII Intact Psychiatric: interacting appropriately ICD10 Worksheet Patient Problems: Problems Problem Status Onset Biventricular heart failure Acute Cardiac arrest Acute Hepatitis C Acute Liver transplant recipient Acute MRSA (methicillin resistant Staphylococcus aureus) Acute ~03/26/17
--- NOTE | 2017-04-04 08:38 | SOAPPROG ---
SOAP Progress Note Assessment/Plan: Assessment/plan: 1. Severe, nonischemic dilated cardiomyopathy. Ejection fraction of 20%. Currently without signs or symptoms of overt congestive heart failure. Presented with cardiac arrest. 2. Status post biventricular ICD implantation. 3. History of liver transplant. 4. History of MRSA pneumonia. 5. History of C difficile colitis. At the present time he appears to be doing well. He is on room air oxygenating without difficulties. He has no complaints that would suggest overt heart failure. His exam is benign. His ICD implantation site has a small hematoma which does not appear to be causing any difficulties. He has not manifested any arrhythmias. He was started on low-dose Perry inhibitor and Coreg yesterday. For the time being, we will plan to continue his current medications. Here in the near future, his beta-blockers and Perry inhibitors can be gradually up titrated. His current dose of Lasix appears to be sufficient. Consideration could be given to adding Aldactone here in the near future. We will follow along. 04/04/17 08:40 Subjective: The patient was seen and examined. His chart was reviewed. Today, he states he is doing well. He denies symptoms of dyspnea. He notes no significant chest pain. He has very minimal discomfort at his ICD implantation site. In reviewing telemetry there are no identified arrhythmias. Objective: Vital Signs Temp Pulse Resp BP Pulse Ox 36.9 C 94 19 115/85 H 93 04/04/17 08:00 04/04/17 08:00 04/04/17 08:00 04/04/17 08:00 04/04/17 08:00 Laboratory Results 04/03/17 04:13 04/04/17 04:15 04/03/17 04/04/17 04/05/17 05:59 05:59 05:59 Intake Total 450 490 Output Total 750 850 Balance -300 -360 PT 15.3 SEC (12.0-15.0) H 04/02/17 04:15 INR 1.21 (0.83-1.16) H 04/02/17 04:15 Physical Exam - Physical Exam General Appearance: no apparent distress, thin Neck: non-tender, supple Respiratory: lungs clear Cardiac/Chest: regular rate, rhythm, gallop (Positive S3), other (ICD implantation site is soft with evidence of a small hematoma), No edema, No JVD Peripheral Pulses: 2+: carotid (R), carotid (L) Abdomen: non-tender Male Genitalia: deferred Rectal: deferred Neuro/Psych: alert, oriented x 3 ICD10 Worksheet Patient Problems: Problems Problem Status Onset MRSA (methicillin resistant Staphylococcus aureus) Acute ~03/26/17 Cardiac arrest Acute Liver transplant recipient Acute Hepatitis C Acute Biventricular heart failure Acute
[2017-04-04] MEDS: LISINOPRIL 2.5 MG TAB PO SCH (10:17)
[2017-04-04] MEDS: CARVEDILOL 3.125 MG TAB PO SCH ×2 (10:18→17:46)
[2017-04-04] MEDS: AMIODARONE HCL 200 MG TAB PO SCH (10:18)
[2017-04-04] MEDS: TACROLIMUS 1 MG CAP PO SCH ×2 (10:18→21:16)
[2017-04-04] MEDS: FUROSEMIDE 20 MG TAB PO SCH (10:18)
[2017-04-04] MEDS: FAMOTIDINE 20 MG TAB PO SCH ×2 (10:19→21:16)
[2017-04-04] MEDS ORDERED: MAGNESIUM SULF 1 GM/DEXTROSE 100 ML IV ONE (11:57)
[2017-04-04 18:22] LABS: POTASSIUM 4.2 mEq/L (3.5-5.2)
[2017-04-04] MEDS: MELATONIN 3 MG TAB PO SCH (21:16)
[2017-04-05 05:36] LABS: ANION GAP 11 mEq/L (8-16); CALCIUM 9.2 mg/dL (8.5-10.4); CARBON DIOXIDE 22 mEq/l (22-31); CHLORIDE 104 mEq/L (97-110); GLOMERULAR FILTRATION RATE > 60; GLUCOSE 97 mg/dL (70-100); MAGNESIUM 1.4 mg/dL (1.6-2.3); POTASSIUM 4.2 mEq/L (3.5-5.2); SODIUM 137 mEq/L (134-144)
[2017-04-05] MEDS: LEVALBUTEROL 1.25 MG/3 ML DEYVIAL IH SCH ×2 (05:39→11:20)
[2017-04-05] MEDS: ACETYLCYSTEINE 20% IH/PO 30 ML VIAL IH SCH ×2 (05:43→11:18)
[2017-04-05] MEDS: VANCOMYCIN 125 MG/2.5 ML UDL PO SCH ×4 (06:13→20:30)
[2017-04-05] MEDS: NYSTATIN SUSP 500000 UNIT/5 ML UDCUP PO SCH ×4 (06:13→20:30)
[2017-04-05] MEDS: HYDROCODONE/APAP 5/325 TAB PO PRN ×3 (06:17→22:47)
[2017-04-05] MEDS: CARVEDILOL 3.125 MG TAB PO SCH ×2 (09:34→16:45)
[2017-04-05] MEDS: LISINOPRIL 2.5 MG TAB PO SCH (09:34)
[2017-04-05] MEDS: FAMOTIDINE 20 MG TAB PO SCH ×2 (09:35→20:31)
[2017-04-05] MEDS: FUROSEMIDE 20 MG TAB PO SCH (09:35)
[2017-04-05] MEDS: TACROLIMUS 1 MG CAP PO SCH ×2 (09:35→20:30)
[2017-04-05] MEDS ORDERED: MAGNESIUM SULF 2 GM/WATER 50 ML IV ONE (09:43)
--- NOTE | 2017-04-05 10:59 | CPEKG ---
Heart Rate: 98 RR Interval: 612 P-R Interval: 148 QRSD Interval: 116 QT Interval: 392 QTC Interval: 501 P [place]: 80 QRS [place]: 25 T Wave [place]: 63 EKG Severity - ABNORMAL ECG - EKG Impression: ATRIAL-SENSED VENTRICULAR-PACED RHYTHM Electronically Signed By: Massimo Cunningham 05-Apr-2017 17:38:11
[2017-04-05] MEDS: AMIODARONE HCL 200 MG TAB PO SCH (11:39)
--- NOTE | 2017-04-05 14:24 | HOSPPROG ---
Hospitalist Progress Note Assessment/Plan: #V fib arrest: s/pp HACA, amio #Severe nonischemic cardiomyopathy -no e/o arrhythmia. Pacer placed, small hematoma -tolerating ACEI, BB. 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 Cont Lasix. Consider Aldactone in future #MRSA PNA: completed 7-days vanc #C diff: oral vanc through April 15 #Acute hypoxic resp failure: resolved #h/o liver transplant: Tacrolimus #Fever: resolved #Hypomagnesium: replete #Diet: cardiac #DVT ppx: Lovenox #Disp: medically stable, awaiting acceptance at [facility] Subjective: denies vision loss, weakness. 1 normal BM today Objective: Vital Signs Temp Pulse Resp BP Pulse Ox 36.7 C 97 18 104/69 97 04/05/17 12:40 04/05/17 12:40 04/05/17 12:40 04/05/17 12:40 04/05/17 12:40 Laboratory Results 04/03/17 04:13 04/05/17 04:45 04/04/17 04/05/17 04/06/17 05:59 05:59 05:59 Intake Total 490 800 350 Output Total 850 400 425 Balance -360 400 -75 PT 15.3 SEC (12.0-15.0) H 04/02/17 04:15 INR 1.21 (0.83-1.16) H 04/02/17 04:15 - Physical Exam Constitutional: no apparent distress Eyes: PERRL Ears, Nose, Mouth, Throat: moist mucous membranes Cardiovascular: regular rate and rhythym, other (pacer site c/d/i), No edema Respiratory: no respiratory distress Gastrointestinal: normoactive bowel sounds, soft, non-tender abdomen Genitourinary: no bladder fullness Skin: warm Musculoskeletal: full muscle strength Neurologic: AAOx3 ICD10 Worksheet Patient Problems: Problems Problem Status Onset Biventricular heart failure Acute Cardiac arrest Acute Hepatitis C Acute Liver transplant recipient Acute MRSA (methicillin resistant Staphylococcus aureus) Acute ~03/26/17
--- NOTE | 2017-04-05 14:31 | PDCARPN ---
Cardiology Progress Note Assessment/Plan: Assessment: 1. Sudden cardiac arrest, V-Fib arrest successfully cardioverted, PEA post shock , HACA. 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 History of Hepatic Transplant on immunosuppressant therapy. 3. Bacteremia, just completed 7 days of Vanco. 4. CARDIOMYOPATHY Echo (03/19) confirmed EF at 20 to 25%. Hospitalist will start cardiomyopathy medical regime with Coreg 3.25 BID and Lisinopril (JACEK-I) QD. 5. LHC (04/02) normal Cors. EF 20%. Right groin incision site. 6. BIV-ICD placed (04/02) INDICATION: NYHA class III and LBBB with QRS>150ms, Cardiomyopathy w/ EF 20%, Sudden cardiac , VF, Cardioverted. 7. [facility] Fady BIV-ICD placed 04/02/17 with no complications. Device checked Wednesday morning and functioning normal. Remote monitor set up by Jerry gould/ [facility]. 8. Incision site Left Pec is intact with pressure dressing intact w/no bleeding , or ecchymosis. Area slightly swollen, and tender. Responding well to analgesic. 9. [facility] Fady Pacing Parameters: 1. Pacing Mode DDD. 2. Lower rate 60. 3. Upper rate 120. Tachycardia therapy parameters: 1. VF Zone---Detection 214 bpm, First therapy 40J---Subsequent therapies 40J. 2. VT Zone---Detection 188, First therapy burst pacing at 84 % tachy CL, 8 beats, 1 sequence. 81% TCL 8beats , 1 seq. Second therapy 40J, Subsequent therapies 40 J. 10. MRSA C-Diff -- Bld cultures negative. Plan: Tolerating Cardiomyopathy medical therapy with Coreg 3.12 mg BID, and Lisinopril 2.5 mg QD. Will need to up-titrate Coreg gradually to optimize treatment for Cardiomyopathy. SBP 100's currently. Will attempt in the next 2 to 3 weeks to increase Coreg to 6.25 mg BID. Pacer Site management: Leave dressing in place for one week. Observe for signs of hematoma, or infection. Avoid using Left arm above shoulder and no lifting or pulling for 10 days. In one week dressing off, and Sutures out in 7 days. IF HE REMAINS AT [facility] a couple more days, will do wound check and have his Pacer checked prior to discharge. OK to shower lower half of body. Put plastic cover over left upper chest to protect site from getting wet, and secure tightly w/tape. 04/03/17 09:53 04/03/17 10:37 04/05/17 14:18 Subjective: I am getting up to the Bathroom. PM site tender. Reviewed/Discussed With: hospitalist, multidisciplinary team Objective: Vital Signs (8 Hrs) Temp Pulse Resp BP Pulse Ox 04/05/17 12:40 36.7 C 97 18 104/69 97 04/05/17 11:21 20 04/05/17 07:25 36.7 C 100 17 107/65 91 L Intake/Output (24 Hrs) 04/04/17 04/05/17 04/06/17 05:59 05:59 05:59 Intake Total 490 800 350 Output Total 850 400 425 Balance -360 400 -75 Intake: Oral (ml) 490 790 350 IV Intake (ml) 10 Output: Urine (ml) 850 400 425 Toilet 400 Urinal 850 425 Other: Intake Quantity Yes Sufficient Number of Voids Toilet 1 Number of Stools Toilet 1 Result Diagrams: 04/03/17 04:13 04/05/17 04:45 - Physical Exam Constitutional: no apparent distress Cardiovascular: regular rate and rhythm, no murmurs, no rubs, no gallops Peripheral Pulses: 2+: dorsalis-pedis (R), dorsalis-pedis (L) Respiratory: clear to auscultate bilat, no crackles, no wheezes Skin: warm, no edema Neurologic: AAOx3 Psychiatric: cooperative, interactive ICD10 Worksheet Patient Problems: Problems Problem Status Onset Biventricular heart failure Acute Cardiac arrest Acute Hepatitis C Acute Liver transplant recipient Acute MRSA (methicillin resistant Staphylococcus aureus) Acute ~03/26/17
[2017-04-05 18:37] LABS: POTASSIUM 4.2 mEq/L (3.5-5.2)
[2017-04-05] MEDS: MELATONIN 3 MG TAB PO SCH (20:30)
[2017-04-06] MEDS: NYSTATIN SUSP 500000 UNIT/5 ML UDCUP PO SCH ×3 (05:46→15:41)
[2017-04-06] MEDS: VANCOMYCIN 125 MG/2.5 ML UDL PO SCH ×3 (05:47→15:41)
[2017-04-06 05:50] LABS: ANION GAP 9 mEq/L (8-16); CALCIUM 8.8 mg/dL (8.5-10.4); CARBON DIOXIDE 22 mEq/l (22-31); CHLORIDE 104 mEq/L (97-110); CREATININE 0.9 mg/dL (0.7-1.3); GLOMERULAR FILTRATION RATE > 60; GLUCOSE 98 mg/dL (70-100); MAGNESIUM 1.6 mg/dL (1.6-2.3); POTASSIUM 3.9 mEq/L (3.5-5.2); SODIUM 135 mEq/L (134-144)
[2017-04-06] MEDS: FUROSEMIDE 20 MG TAB PO SCH (09:26)
[2017-04-06] MEDS: AMIODARONE HCL 200 MG TAB PO SCH (09:26)
[2017-04-06] MEDS: FAMOTIDINE 20 MG TAB PO SCH (09:26)
[2017-04-06] MEDS: CARVEDILOL 3.125 MG TAB PO SCH (09:26)
[2017-04-06] MEDS: TACROLIMUS 1 MG CAP PO SCH (09:26)
[2017-04-06] MEDS ORDERED: POTASSIUM CL 10 MEQ TAB PO ONE (09:33)
[2017-04-06] MEDS ORDERED: MAGNESIUM SULF 1 GM/DEXTROSE 100 ML IV ONE (10:30)
[2017-04-06] MEDS: LISINOPRIL 2.5 MG TAB PO SCH (10:49)
--- NOTE | 2017-04-06 11:47 | PDIAF ---
- Diagnosis Diagnosis: v fib arrest Code Status: Full Code - Medication Management Discharge Medications: Medications to Continue on Transfer Ibuprofen [Advil] 800 mg PO DAILY PRN 03/20/17 [Last Taken Unknown] Tacrolimus [Prograf] 2 mg PO Q12H 03/20/17 [Last Taken 03/19/17] oxyCODONE/APAP 5/325 [Percocet 5/325 (*)] 1 tab PO DAILY PRN 03/20/17 [Last Taken Unknown] Amiodarone HCl [Pacerone (*)] 200 mg PO DAILY #30 tab 04/06/17 [Last Taken Unknown] Carvedilol [Coreg (*)] 3.125 mg PO BIDMEAL #60 tab 04/06/17 [Last Taken Unknown] Furosemide [Lasix 20 MG (*)] 20 mg PO DAILY #30 tab 04/06/17 [Last Taken Unknown ] Hydrocodone/APAP 5/325 [[place] 5/325 (*)] 1 - 2 tab PO Q4HRS PRN #30 tab [Last Taken Unknown] Lisinopril [Zestril 2.5 mg (*)] 2.5 mg PO DAILY #30 tab 04/06/17 [Last Taken Unknown] Vancomycin [Vancomycin (*)] 125 mg PO Q6 #38 cap 04/06/17 [Last Taken Unknown] Discharge Medications: Refer to the Discharge Home Medication list for PRN reason. - Orders Services needed: Home Care, Registered Nurse, Physical Therapy, Occupational Therapy, Speech Language Pathologist Home Care Face to Face: I certify that this patient was under my care and that I had the required [id number] encounter meeting the encounter requirements on the discharge day. My findings support the fact that the patient is homebound as defined in CMS Chapter 7 Medicare Benefits Manual 30.1.1, The condition of the patient is such that there exists a normal inability to leave home and consequently, leaving home would require a considerable and taxing effort. Diet Texture: Regular Texture Diet, Thin Liquids, Ice Chips, Meds Whole w/ Liquids - Follow Up Care Current Providers and Referrals: Patient,NotPresent [Primary Care Provider] -
[2017-04-06 13:38] VITALS: RESP 20; TEMP 98.5
--- NOTE | 2017-04-06 15:06 | HOSPPROG ---
Hospitalist Progress Note Assessment/Plan: #V fib arrest: s/pp HACA, amiodarone. s/p pacer, AICD #Severe nonischemic cardiomyopathy -no e/o arrhythmia. Pacer placed, small hematoma -tolerating ACEI, BB. 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 Cont Lasix. Consider Aldactone in future #MRSA PNA: completed 7-days vanc #C diff: oral vanc through April 15 #Acute hypoxic resp failure: resolved #h/o liver transplant: Tacrolimus #Fever: resolved #Hypomagnesium: replete #Diet: cardiac #DVT ppx: Lovenox #Disp: medically stable. Patient now declining [place]. Wants to go home with cares and will pursue outpatient Neuro rehab Subjective: no CP or SOB. No diarrhea Objective: Vital Signs Temp Pulse Resp BP Pulse Ox 36.9 C 92 20 102/69 95 04/06/17 11:56 04/06/17 11:56 04/06/17 11:56 04/06/17 11:56 04/06/17 11:56 Microbiology 03/20/17 11:00 Mycobacterial Smear (ROBY) - Final Lung Bilateral - Bronchial Washings Laboratory Results 04/03/17 04:13 04/06/17 04:36 04/05/17 04/06/17 04/07/17 05:59 05:59 05:59 Intake Total 800 960 220 Output Total 400 1525 Balance 400 -565 220 PT 15.3 SEC (12.0-15.0) H 04/02/17 04:15 INR 1.21 (0.83-1.16) H 04/02/17 04:15 - Physical Exam Constitutional: no apparent distress Eyes: PERRL Ears, Nose, Mouth, Throat: moist mucous membranes, hearing normal Cardiovascular: regular rate and rhythym, other (pacer site dressed C/D/I) Respiratory: no respiratory distress Gastrointestinal: normoactive bowel sounds Genitourinary: no bladder fullness Skin: warm Musculoskeletal: full muscle strength Neurologic: AAOx3, CN II-XII Intact Psychiatric: interacting appropriately ICD10 Worksheet Patient Problems: Problems Problem Status Onset Biventricular heart failure Acute Cardiac arrest Acute Hepatitis C Acute Liver transplant recipient Acute MRSA (methicillin resistant Staphylococcus aureus) Acute ~03/26/17
[2017-04-06 16:35] VITALS: BP 99/69; O2SAT 94
[2017-04-06] MEDS: HYDROCODONE/APAP 5/325 TAB PO PRN (16:39)
--- NOTE | 2017-04-06 16:56 | PDCARPN ---
Cardiology Progress Note Assessment/Plan: Assessment: 1. Sudden cardiac arrest, V-Fib arrest successfully cardioverted, PEA post shock , HACA. Right WOODS BOSS Stroke 2. History of Hepatic Transplant on immunosuppressant therapy. 3. Bacteremia, just completed 7 days of Vanco. 4. CARDIOMYOPATHY Echo (03/19) confirmed EF at 20 to 25%. Hospitalist will start cardiomyopathy medical regime with Coreg 3.25 BID and Lisinopril (JACEK-I) QD. 5. LHC (04/02) normal Cors. EF 20%. Right groin incision site. 6. BIV-ICD placed (04/02) INDICATION: NYHA class III and LBBB with QRS>150ms, Cardiomyopathy w/ EF 20%, Sudden cardiac , VF, Cardioverted. 7. [facility] BIV-ICD placed 04/02/17 with no complications. Device checked Wednesday morning and functioning normal. Remote monitor set up by Jerry gould/ [facility]. 8. Incision site Left Pec is intact with pressure dressing intact w/no bleeding , or ecchymosis. Area slightly swollen, and tender. Responding well to analgesic. 9. [facility] Pacing Parameters: 1. Pacing Mode DDD. 2. Lower rate 60. 3. Upper rate 120. Tachycardia therapy parameters: 1. VF Zone---Detection 214 bpm, First therapy 40J---Subsequent therapies 40J. 2. VT Zone---Detection 188, First therapy burst pacing at 84 % tachy CL, 8 beats, 1 sequence. 81% TCL 8beats , 1 seq. Second therapy 40J, Subsequent therapies 40 J. 10. MRSA C-Diff -- Bld cultures negative. 11. Hx Pratt Sarcoma at age 10, Tx w/ high dose Chemo. Needed Blood Transfusion and contracted Hep C, which led to Liver transplant 11 yrs ago. Dx w/ Cardiomyopathy and treated at [facility], and eventually stopped Carvedilol , and managed on Lasix PRN. Plan: Tolerating Cardiomyopathy medical therapy with Coreg 3.12 mg BID, and Lisinopril 2.5 mg QD. Will need to up-titrate Coreg gradually to optimize treatment for Cardiomyopathy. SBP 100's currently. Will attempt in the next 2 to 3 weeks to increase Coreg to 6.25 mg BID. Pacer Site management: Leave dressing in place for one week. Observe for signs of hematoma, or infection. Avoid using Left arm above shoulder and no lifting or pulling for 10 days. In one week dressing off, closed with invis sutures, wound check in 7 days. Pacer check in 1 week....Scheduled for 04/08/17 at 11:30 at [facility] [place] [facility] [place]. OK to shower lower half of body. Put plastic cover over left upper chest to protect site from getting wet, and secure tightly w/tape. Today spent >30 minutes w/ coordination of care. 04/03/17 09:53 04/06/17 16:47 04/06/17 16:59 Subjective: Up in [place] walking with his Sister. Reviewed/Discussed With: hospitalist, multidisciplinary team (Rocket Assembly Operator) Objective: Vital Signs (8 Hrs) Temp Pulse Resp BP Pulse Ox 04/06/17 16:00 36.9 C 106 H 20 99/69 L 94 04/06/17 11:56 36.9 C 92 20 102/69 95 Intake/Output (24 Hrs) 04/05/17 04/06/17 04/07/17 05:59 05:59 05:59 Intake Total 800 960 470 Output Total 400 1525 Balance 400 -565 470 Intake: Oral (ml) 790 950 370 IV Intake (ml) 10 10 IV Infused (ml) 100 Magnesium Sulf 1 gm/ 100 Dextrose 100 ml @ 100 mls /hr IV ONCE ONE Rx#: [id number] Output: Urine (ml) 400 1525 Toilet 400 400 Urinal 1125 Other: Number of Voids Toilet 1 1 1 Number of Stools Toilet 1 1 1 Result Diagrams: 04/03/17 04:13 04/06/17 04:36 - Physical Exam Cardiovascular: regular rate and rhythm Neurologic: AAOx3 Psychiatric: cooperative, interactive ICD10 Worksheet Patient Problems: Problems Problem Status Onset Biventricular heart failure Acute Cardiac arrest Acute Hepatitis C Acute Liver transplant recipient Acute MRSA (methicillin resistant Staphylococcus aureus) Acute ~03/26/17
[2017-04-06 17:11] VITALS: PULSE 96
--- NOTE | 2017-04-07 04:03 | GDS ---
[f rep st] DISCHARGE SUMMARY DISCHARGE DIAGNOSES: 1. Ventricular fibrillation arrest. 2. Nonischemic cardiomyopathy. 3. History of liver transplant, on immunosuppressant therapy. 4. Methicillin-resistant Staphylococcus aureus pneumonia. 5. Clostridium difficile infection. 6. Acute hypoxic respiratory failure. 7. Fever. 8. Hypomagnesium. HISTORY OF PRESENT ILLNESS: Patient is a 41-year-old male with history of liver transplant, on chronic immunosuppression, chronic hepatitis C, and cardiomyopathy who had an outside-hospital cardiac arrest. 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 This was witnessed by his coworkers and said he had a couple of agonal breaths before he stopped breathing completely. They immediately called EMS and initiated CPR. He was found to be in V-fib and was shocked 2 times while in transport. He was intubated en route. HOSPITAL COURSE BY PROBLEM: 1. V-fib arrest: Patient was admitted to the ICU status post HACA. Had pacer AICD placed on 04/02/2017. He is to follow up April 09 for pacer wound check. Continue amiodarone. 2. Cardiomyopathy: Patient was initiated on low-dose Coreg and JACEK inhibitor. In the next couple weeks, he will be up titrated to 6.25 mg of Coreg. Will likely need spironolactone in the future. He is to follow up with Cardiology. 3. MRSA pneumonia, status post 7 days vancomycin. 4. C difficile: Currently, on oral vancomycin to be continued through April 15. 5. Acute hypoxic respiratory failure secondary to acute cardiac arrest: This has resolved. 6. History of liver transplant: Continue tacrolimus. 7. Fever secondary to pneumonia: This resolved. Cultures have remained negative. 8. Hypomagnesium: Replete. 9. 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 Complained of mild left haziness. He was recommended for rehab at [place] for extensive neuro rehab. Patient declined, as he says he feels isolated being in the hospital so long here and does not want to continue that, though this was our recommendation. He is to go home with home health, PT/OT, and will arrange for outpatient neuro rehab. DISPOSITION: Patient stable for discharge. FOLLOWUP: 1. Neurology. 2. Cardiology. 3. Pacer site check on April 09. 4. His primary care physician. NEW MEDICATIONS: Coreg, vancomycin, and lisinopril. Time spent coordinating DC meds and FU > 35 min /[id number]/MODL MTDD
== END 2017-04-06 17:12 | disposition home health service (06) | DRG 224 ==
LOC: EDBD 20:29 → F2N 22:55 → F2W 03-31 11:17
PROVIDERS: ADMIT Internal Medicine; ATTEND Internal Medicine
PROC: 5A1945Z Respiratory Ventilation, 24-96 Consecutive Hours (ICD-10-PCS; 2017-03-19)
PROC: 0BH17EZ Insertion of Endotracheal Airway into Trachea, Via Natural or Artificial Opening (ICD-10-PCS; 2017-03-19)
PROC: 02HV33Z Insertion of Infusion Device into Superior Vena Cava, Percutaneous Approach (ICD-10-PCS; 2017-03-19)
PROC: 0B9D8ZX Drainage of Right Middle Lung Lobe, Via Natural or Artificial Opening Endoscopic, Diagnostic (ICD-10-PCS; 2017-03-20)
PROC: 5A1945Z Respiratory Ventilation, 24-96 Consecutive Hours (ICD-10-PCS; 2017-03-24)
PROC: 0BH17EZ Insertion of Endotracheal Airway into Trachea, Via Natural or Artificial Opening (ICD-10-PCS; 2017-03-24)
PROC: 0B978ZX Drainage of Left Main Bronchus, Via Natural or Artificial Opening Endoscopic, Diagnostic (ICD-10-PCS; 2017-03-24)
PROC: 0B938ZX Drainage of Right Main Bronchus, Via Natural or Artificial Opening Endoscopic, Diagnostic (ICD-10-PCS; 2017-03-24)
PROC: 02HK3KZ Insertion of Defibrillator Lead into Right Ventricle, Percutaneous Approach (ICD-10-PCS; principal; 2017-04-02)
PROC: 02H63KZ Insertion of Defibrillator Lead into Right Atrium, Percutaneous Approach (ICD-10-PCS; principal; 2017-04-02)
PROC: 02HL3KZ Insertion of Defibrillator Lead into Left Ventricle, Percutaneous Approach (ICD-10-PCS; principal; 2017-04-02)
PROC: 0JH609Z Insertion of Cardiac Resynchronization Defibrillator Pulse Generator into Chest Subcutaneous Tissue and Fascia, Open Approach (ICD-10-PCS; principal; 2017-04-02)
PROC: B2111ZZ Fluoroscopy of Multiple Coronary Arteries using Low Osmolar Contrast (ICD-10-PCS; 2017-04-02)
PROC: 4A023N7 Measurement of Cardiac Sampling and Pressure, Left Heart, Percutaneous Approach (ICD-10-PCS; 2017-04-02)
PROC: B2151ZZ Fluoroscopy of Left Heart using Low Osmolar Contrast (ICD-10-PCS; 2017-04-02)
DX: I49.01 Ventricular fibrillation (principal); I46.2 Cardiac arrest due to underlying cardiac condition; I63.331 Cerebral infarction due to thrombosis of right posterior cerebral artery; R57.0 Cardiogenic shock; I50.21 Acute systolic (congestive) heart failure; I44.7 Left bundle-branch block, unspecified; I42.9 Cardiomyopathy, unspecified; R40.20 Unspecified coma; J96.01 Acute respiratory failure with hypoxia; E87.2 Acidosis; J15.212 Pneumonia due to Methicillin resistant Staphylococcus aureus; A04.7 Enterocolitis due to Clostridium difficile; E83.42 Hypomagnesemia; S22.20XA Unspecified fracture of sternum, initial encounter for closed fracture; S22.43XA Multiple fractures of ribs, bilateral, initial encounter for closed fracture; B18.2 Chronic viral hepatitis C; Z94.4 Liver transplant status; Z85.830 Personal history of malignant neoplasm of bone
CPT/HCPCS: 80197-90; 80307; 82947-QW; 92507-GN; 92523-GN; 92526-GN; 92610-GN; 96365; 96366; 97110-GP; 97112-GO; 97112-GP; 97116-GP; 97163-GP; 97166-GO; 97530-GO; 97530-GP; 97532-GO; 97535-GO; C1751; C1769; C1777; C1882; C1893; C1898; C1900; G0480; J0282; J0461; J0610; J1250; J1265; J1335; J1644; J1650; J1815; J1940; J2060; J2250; J2370; J2704; J2997; J3010; J3370; J3475; J7507; Q9967